=== PATIENT | male | born 1950 | race Caucasian/White ===

== ENCOUNTER → 2018-08-23 | Outpatient (CLI) | payer MEDICARE, BC ==
--- NOTE | 2018-08-23 11:14 | XR ---
EXAMINATION TYPE: XR knee limited LT DATE OF EXAM: 08/23/2018 CLINICAL HISTORY: Left knee pain for many years. TECHNIQUE: Three views of the left knee are obtained. COMPARISON: None. FINDINGS: There is no acute fracture/dislocation evident in left knee. There is mild to moderate tri compartment joint space narrowing and spurring. Posterior vascular calcification distal femur level i s noted. IMPRESSION: As above.
== END | disposition home or self-care (01) ==
LOC: RADXRMAIN 10:27
PROVIDERS: ATTEND Internal Medicine
DX: M25.862 Other specified joint disorders, left knee (principal)

== ENCOUNTER → 2019-01-06 | Outpatient (CLI) | payer MEDICARE ==
[2019-01-06 17:21] LABS: African American GFR (CKD) 100.6 (60.0-200.0); Albumin 3.9 g/dL (3.80-4.90); Albumin/Globulin Ratio 1.86 (1.60-3.17); BUN/Creat Ratio 15.56 Ratio (12.00-20.00); Calcium 9.1 mg/dL (8.7-10.3); Globulin 2.1 g/dL (1.6-3.3); LDL Cholesterol,Calculated 66.4 mg/dL (0.0-131.0); Potassium 4.4 mmol/L (3.5-5.5); Total Bilirubin 0.6 mg/dL (0.2-1.2); VLDL Calculation 15.6 mg/dL (5.00-40.00)
== END | disposition home or self-care (01) ==
LOC: LABWHC1 10:01
PROVIDERS: ATTEND Internal Medicine
DX: Z00.00 Encounter for general adult medical examination without abnormal findings (principal); Z12.5 Encounter for screening for malignant neoplasm of prostate
CPT/HCPCS: 80061; 80053; 36415; G0103

== ENCOUNTER 2019-03-06 18:29 | Inpatient (IN) | payer MEDICARE ==
[2019-03-06] MEDS ORDERED: SODIUM CHLORIDE 0.9% 500 ML 500 ML IV STA (20:24)
[2019-03-06] MEDS ORDERED: ONDANSETRON 4 MG/2 ML VIAL IVP STA (20:27)
[2019-03-06] MEDS ORDERED: METOCLOPRAMIDE 5 MG/ML 2 ML VIAL IVP STA (20:27)
[2019-03-06] MEDS ORDERED: diphenhydrAMINE 50 MG/ML 1 ML VIAL IVP STA (20:27)
[2019-03-06] MEDS ORDERED: MORPHINE SULFATE 4 MG/ML SYRINGE IVP STA (20:28)
--- NOTE | 2019-03-06 20:38 | ED ---
General Adult HPI - General Chief complaint: Abdominal Pain Stated complaint: headache, vomiting Time Seen by Provider: 03/06/19 20:02 Source: patient Mode of arrival: ambulatory Limitations: no limitations - History of Present Illness Initial comments: Patient presents to the ED with his complaining of having a cough, congestion and headache since yesterday, and generalized abdominal pain, nausea and vomiting since this morning. Patient also states that he has had a few bouts of loose stool today. Patient denies trauma or injury, sudden onset of headache, LOC, neck pain or stiffness, fever or chills, focal numbness/weakness/neuro deficit, visual changes, speech problems, chest pain, dyspnea, hemoptysis, palpitations, dizziness, constipation, bloody stool or emesis, melena, dysuria, urinary symptoms, or any other symptoms/complaints. - Related Data Home Medications Medication Instructions Recorded Confirmed Brinzolamide/Brimonidine Tart 1 drop BOTH EYES BID 03/31/15 03/06/19 [Simbrinza 1%-0.2% Eye Drops] Latanoprost Ophth [Xalatan 0.005%] 1 drops BOTH EYES HS 03/31/15 03/06/19 Losartan [Cozaar] 50 mg PO DAILY 03/31/15 03/06/19 Simvastatin [Zocor] 40 mg PO HS 03/31/15 03/06/19 Albuterol Sulfate [Proair Hfa] 2 puff INHALATION RT-Q6H PRN 04/04/15 03/06/19 Cyanocobalamin [Vitamin B-12] 500 mcg PO DAILY 06/08/15 03/06/19 Azithromycin [Zithromax Z-pack] See Taper PO DIRECTED 03/06/19 03/06/19 Meclizine HCl 12.5 mg PO TID PRN 03/06/19 03/06/19 Polymyxin B-Trimeth Sulf Ophth 1 drops BOTH EYES TID 03/06/19 03/06/19 [Polytrim] traMADol HCL [Ultram] 50 mg PO TID PRN 03/06/19 03/06/19 Allergies Allergy/AdvReac Type Severity Reaction Status Date / Time acetaminophen [From Vicodin] Allergy Rash/Hives Verified 03/06/19 20:35 hydrocodone bitartrate Allergy Rash/Hives Verified 03/06/19 20:35 [From Vicodin] Penicillins Allergy Rash/Hives Verified 03/06/19 20:35 cortisone AdvReac Abdominal Verified 03/06/19 20:35 Pain NSAIDS (Non-Steroidal AdvReac Abdominal Verified 03/06/19 20:35 Anti-Inflamma Pain prednisone AdvReac Abdominal Verified 03/06/19 20:35 Pain Review of Systems ROS Statement: Those systems with pertinent positive or pertinent negative responses have been documented in the HPI. ROS Other: All systems not noted in ROS Statement are negative. Past Medical History Past Medical History: Asthma, Eye Disorder, Hyperlipidemia, Hypertension, Osteoarthritis (OA) Additional Past Medical History / Comment(s): BILAT GLAUCOMA AND CATARACTS History of Any Multi-Drug Resistant Organisms: None Reported Past Surgical History: Bariatric Surgery, Cholecystectomy, Hernia Repair, Orthopedic Surgery, Tonsillectomy Additional Past Surgical History / Comment(s): ANAL FISSURE REMOVED. RT ROTATOR CUFF REPAIR. LAP BAND IN AND THEN REMOVED. WARTS REMOVED FROM LOWER EXTREMIES. COLONOSCOPY. SURGERY BILAT EYES FOR CATARACTS AND GLAUCOMA. EGD. RT KNEE SCOPE Past Anesthesia/Blood Transfusion Reactions: No Reported Reaction Additional Past Anesthesia/Blood Transfusion Reaction / Comment(s): Pt has never received blood. Past Psychological History: No Psychological Hx Reported Smoking Status: Never smoker Past Alcohol Use History: None Reported Past Drug Use History: None Reported - Past Family History Mother Family Medical History: Unable to Obtain Additional Family Medical History / Comment(s): FAMILY HX UNKNOWN PT IN F[facility] C[facility] CHILD Father History Unknown: Yes Family Medical History: Unable to Obtain Additional Family Medical History / Comment(s): Pt raised in foster care. General Exam Limitations: no limitations General appearance: alert, in no apparent distress Head exam: Present: atraumatic, normocephalic Eye exam: Present: PERRL, EOMI ENT exam: Present: normal oropharynx, mucous membranes moist Neck exam: Present: full ROM. Absent: tenderness, meningismus Respiratory exam: Present: normal lung sounds bilaterally. Absent: respiratory distress, wheezes, rales, rhonchi Cardiovascular Exam: Present: regular rate, normal rhythm, normal heart sounds, other (Normal radial pulses bilaterally) GI/Abdominal exam: Present: soft, normal bowel sounds, other (Moderate generalized tenderness). Absent: guarding, rebound Back exam: Absent: CVA tenderness (R), CVA tenderness (L) Neurological exam: Present: alert, oriented X3, CN II-XII intact. Absent: motor sensory deficit Psychiatric exam: Present: normal affect, normal mood Skin exam: Present: warm, dry, intact Course Vital Signs 03/06/19 03/06/19 03/06/19 19:06 22:31 23:11 Temperature 98.5 F Pulse Rate 92 87 76 Respiratory 18 18 17 Rate Blood Pressure 222/62 205/101 166/86 O2 Sat by Pulse 98 97 97 Oximetry - Reevaluation(s) Reevaluation #1: 03/06/19 23:58 Case, H&P, test results and ED management thus far were discussed with hospitalist [employer] Radha Lopes. She accepts floor admission on behalf of herself and Dr. Francis. She recommends cardiology consultation. She has no further recommendations at this time. Reevaluation #2: 03/07/19 00:03 Patient denies development of any new symptoms while in the ED. Patient remains alert and breathing comfortably. His abdomen remains soft and without any s urgical signs. Patient's blood pressure has now improved significantly. He continues to deny having any chest pain. Patient and are aware of the patient's test results and they both agree with hospital admission at this time. EKG Findings - EKG Comments: EKG Findings:: Sinus rhythm with first-degree AV block, LVH with strain pattern that is similar in appearance to 06/08/2015 EKG, slightly prolonged QTc interval of 482 ms, VT interval is 210 ms, QRS duration is 114 ms Medical Decision Making - Medical Decision Making Patient reports having a headache, cough and congestion since yesterday, which I suspect are likely secondary to a viral upper respiratory illness. Patient's abdomen is soft and without any surgical signs on exam. Patient's CT abdomen and pelvis is negative for acute abnormality. Patient's troponin is however slightly elevated, although he denies having any chest pain. Patient's blood pressure has improved while in the ED. Pt was given IV labetalol, sublingual nitroglycerin and aspirin while in the ED. Given his elevated troponin and sym ptoms, patient and agree with hospital admission at this time for further evaluation/management. - Lab Data Result diagrams: 03/06/19 20:44 03/06/19 20:44 Lab Results 03/06/19 03/06/19 03/06/19 Range/Units 20:44 20:44 20:44 WBC 15.9 H (3.8-10.6) k/uL RBC 4.51 (4.30-5.90) m/uL Hgb 14.0 (13.0-17.5) gm/dL Hct 41.6 (39.0-53.0) % MCV 92.3 D (80.0-100.0) fL MCH 31.0 (25.0-35.0) pg MCHC 33.6 (31.0-37.0) g/dL RDW 13.7 (11.5-15.5) % Plt Count 231 (150-450) k/uL Neutrophils % 87 % Lymphocytes % 7 % Monocytes % 4 % Eosinophils % 1 % Basophils % 1 % Neutrophils # 13.8 H (1.3-7.7) k/uL Lymphocytes # 1.1 (1.0-4.8) k/uL Monocytes # 0.6 (0-1.0) k/uL Eosinophils # 0.1 (0-0.7) k/uL Basophils # 0.1 (0-0.2) k/uL Sodium 140 (137-145) mmol/L Potassium 4.1 (3.5-5.1) mmol/L Chloride 105 (98-107) mmol/L Carbon Dioxide 25 (22-30) mmol/L Anion Gap 10 mmol/L BUN 10 (9-20) mg/dL Creatinine 0.62 L (0.66-1.25) mg/dL Est GFR (CKD-EPI)AfAm >90 (>60 ml/min/1.73 sqM) Est GFR (CKD-EPI)NonAf >90 (>60 ml/min/1.73 sqM) Glucose 134 H (74-99) mg/dL Calcium 9.7 (8.4-10.2) mg/dL Total Bilirubin 1.0 (0.2-1.3) mg/dL AST 26 (17-59) U/L ALT 15 L (21-72) U/L Alkaline Phosphatase 89 (38-126) U/L Troponin I 0.179 H* (0.000-0.034) ng/mL Total Protein 7.7 (6.3-8.2) g/dL Albumin 4.4 (3.5-5.0) g/dL Lipase 52 (23-300) U/L Urine Color Urine Appearance (Clear) Urine pH (5.0-8.0) Ur Specific [place] (1.001-1.035) Urine Protein (Negative) Urine Glucose (UA) (Negative) Urine Ketones (Negative) Urine Blood (Negative) Urine Nitrite (Negative) Urine Bilirubin (Negative) Urine Urobilinogen (<2.0) mg/dL Ur Leukocyte Esterase (Negative) Urine RBC (0-5) /hpf Urine WBC (0-5) /hpf Ur Squamous Epith Cells (0-4) /hpf Urine Mucus (None) /hpf 03/06/19 Range/Units 22:20 WBC (3.8-10.6) k/uL RBC (4.30-5.90) m/uL Hgb (13.0-17.5) gm/dL Hct (39.0-53.0) % MCV (80.0-100.0) fL MCH (25.0-35.0) pg MCHC (31.0-37.0) g/dL RDW (11.5-15.5) % Plt Count (150-450) k/uL Neutrophils % % Lymphocytes % % Monocytes % % Eosinophils % % Basophils % % Neutrophils # (1.3-7.7) k/uL Lymphocytes # (1.0-4.8) k/uL Monocytes # (0-1.0) k/uL Eosinophils # (0-0.7) k/uL Basophils # (0-0.2) k/uL Sodium (137-145) mmol/L Potassium (3.5-5.1) mmol/L Chloride (98-107) mmol/L Carbon Dioxide (22-30) mmol/L Anion Gap mmol/L BUN (9-20) mg/dL Creatinine (0.66-1.25) mg/dL Est GFR (CKD-EPI)AfAm (>60 ml/min/1.73 sqM) Est GFR (CKD-EPI)NonAf (>60 ml/min/1.73 sqM) Glucose (74-99) mg/dL Calcium (8.4-10.2) mg/dL Total Bilirubin (0.2-1.3) mg/dL AST (17-59) U/L ALT (21-72) U/L Alkaline Phosphatase (38-126) U/L Troponin I (0.000-0.034) ng/mL Total Protein (6.3-8.2) g/dL Albumin (3.5-5.0) g/dL Lipase (23-300) U/L Urine Color Light Yellow Urine Appearance Clear (Clear) Urine pH 7.0 (5.0-8.0) Ur Specific [place] 1.011 (1.001-1.035) Urine Protein 1+ H (Negative) Urine Glucose (UA) Negative (Negative) Urine Ketones Trace H (Negative) Urine Blood Trace H (Negative) Urine Nitrite Negative (Negative) Urine Bilirubin Negative (Negative) Urine Urobilinogen <2.0 (<2.0) mg/dL Ur Leukocyte Esterase Negative (Negative) Urine RBC 6 H (0-5) /hpf Urine WBC <1 (0-5) /hpf Ur Squamous Epith Cells 1 (0-4) /hpf Urine Mucus Rare H (None) /hpf - Radiology Data Radiology results: report reviewed (CT brain shows no acute intracranial pathology. CT abdomen and pelvis shows no acute pathology.), image reviewed (Chest x-ray shows cardiomegaly and pulmonary vascular congestion.) Disposition Clinical Impression: Headache, Upper respiratory infection, Abdominal pain, Vomiting, Elevated troponin Disposition: ADMITTED IP TO THIS [facility] Condition: Stable Time of Disposition: 23:58 Decision Date: 03/06/19 Decision Time: 23:58
[2019-03-06 20:57] LABS: Basophils # (A) 0.1 k/uL (0-0.2); Basophils % (A) 1 %; Eosinophils # (A) 0.1 k/uL (0-0.7); Eosinophils % (A) 1 %; HCT 41.6 % (39.0-53.0); Lymphocytes # (A) 1.1 k/uL (1.0-4.8); Lymphocytes % (A) 7 %; MCHC 33.6 g/dL (31.0-37.0); Monocytes # (A) 0.6 k/uL (0-1.0); Monocytes % (A) 4 %; Neutrophils # (A) 13.8 k/uL (1.3-7.7); Neutrophils % (A) 87 %; Platelet Count 231 k/uL (150-450); RBC 4.51 m/uL (4.30-5.90); RDW 13.7 % (11.5-15.5); WBC 15.9 k/uL (3.8-10.6)
[2019-03-06 21:01] LABS: MCV 92.3 fL (80.0-100.0)
[2019-03-06 21:09] LABS: ALT 15 U/L (21-72); AST 26 U/L (17-59); African American GFR (CKD) >90 (>60 ml/min/1.73 sqM); Albumin 4.4 g/dL (3.5-5.0); Alkaline Phosphatase 89 U/L (38-126); Anion Gap 10 mmol/L; Blood Urea Nitrogen 10 mg/dL (9-20); Calcium 9.7 mg/dL (8.4-10.2); Carbon Dioxide 25 mmol/L (22-30); Chloride 105 mmol/L (98-107); Glucose 134 mg/dL (74-99); Potassium 4.1 mmol/L (3.5-5.1); Sodium 140 mmol/L (137-145); Total Protein 7.7 g/dL (6.3-8.2)
[2019-03-06] MEDS ORDERED: NITROGLYCERIN SL TABS 0.4 MG TAB SUBLINGUAL STA (22:12)
[2019-03-06] MEDS ORDERED: LABETALOL 5 MG/ML VIAL MDV IVP STA (22:13)
--- NOTE | 2019-03-06 22:25 | XR ---
EXAM: XR Chest, 2 Views CLINICAL HISTORY: Cough. TECHNIQUE: Frontal and lateral views of the chest. COMPARISON: None. FINDINGS: Lungs: Mild prominence of central pulmonary vasculature. Pleural space: Lungs are well aerated without pneumothorax No significant pleural effusion is noted. Heart: There is cardiomegaly. Mediastinum: Unremarkable. Bones/joints: Osteopenia. Mild degenerative disc disease of the thoracic spine. IMPRESSION: Cardiomegaly and prominence of central pulmonary vasculature worrisome for incipient congestive heart failure. Clinical correlation is necessary.
--- NOTE | 2019-03-06 22:33 | CT ---
EXAM: CT Head Without Intravenous Contrast CLINICAL HISTORY: Headache. TECHNIQUE: Axial computed tomography images of the head/brain without intravenous contrast. CTDI is 49.1 mGy and DLP is 1072.4 mGy-cm. This CT exam was performed using one or more of the following dose reduction techniques: automated exposure control, adjustment of the mA and/or kV according to patient size, and/or use of iterative reconstruction technique. COMPARISON: None. FINDINGS: Brain: No abnormal extra axial collection No hemorrhage. Midline shift: No midline shift or mass-effect Midline anatomy is normal Ventricles: There is prominence of the ventricular system, cortical sulci, basilar cisterns compatible with age-related atrophy. Bones/joints: Unremarkable. No acute fracture. Soft tissues: Unremarkable. Sinuses: Moderate chronic ethmoid sinusitis. Mastoid air cells: Unremarkable as visualized. No mastoid effusion. Nasal cavity/septum: A 0.8 cm of nasal polyp arising from the right inferior turbinate. IMPRESSION: Age related atrophy. No acute intracranial pathology. If there is concern for etiology such as early acute lacunar infarct, magnetic resonance imaging of the brain with diffusion-weighted sequences should be performed. Nasal polyps. Chronic ethmoid sinusitis.
--- NOTE | 2019-03-06 22:53 | CT ---
EXAM: CT Abdomen and Pelvis With Intravenous Contrast CLINICAL HISTORY: Abdominal pain. TECHNIQUE: Axial computed tomography images of the abdomen and pelvis with intravenous contrast. CTDI is 49.1Was mGy and DLP is 1072.4 mGy-cm. This CT exam was performed using one or more of the following dose reduction techniques: automated exposure control, adjustment of the mA and/or kV according to patient size, and/or use of iterative reconstruction technique. COMPARISON: 06/08/2015. FINDINGS: Lung bases: Minimal subsegmental atelectasis is noted at the lung bases. Mediastinum: Small hiatal hernia. ABDOMEN: Liver: The uppermost aspect of the liver is excluded from view. Moreover, evaluation is somewhat limited due to motion artifact. Gallbladder and bile ducts: The patient is status post cholecystectomy. 3.2 cm simple cyst in the upper to mid pole region of the left kidney is noted, based on Hounsfield valuation. No ductal dilation. Pancreas: Unremarkable. No mass. No ductal dilation. Spleen: Unremarkable. No splenomegaly. Adrenals: Unremarkable. No mass. Kidneys and ureters: An additional 0.3 cm oval simple cyst in the midpole region of the left kidney is noted. Bilateral peripelvic renal cysts are noted. A 2.2 cm simple right renal cyst is noted medially. No hydronephrosis. Stomach and bowel: A few scattered colonic diverticula are noted without diverticulitis. No obstruction. PELVIS: Appendix: The appendix is best visualized on series 201 image 58 and is unremarkable Bladder: Unremarkable. No mass. Reproductive: Unremarkable as visualized. ABDOMEN and PELVIS: Intraperitoneal space: No free fluid within the pelvis. No free air. Bones/joints: Moderate to severe degenerative disc disease of the spinal column is noted. Mild to moderate osteoarthritic changes about the sacroiliac joints is noted. Arthroscopic disease of the abdominal aorta is noted without change in caliber No acute fracture. No dislocation. Soft tissues: Unremarkable. Vasculature: See above. Lymph nodes: No retroperitoneal lymphadenopathy. IMPRESSION: Limited evaluation as discussed above. Small hiatal hernia. Simple renal cysts. The appendix is unremarkable. Mild diverticulosis. Nonspecific bowel gas pattern. Status post cholecystectomy.
[2019-03-06 23:29] LABS: Appearance,Urine Clear (Clear); Bilirubin,Urine Negative (Negative); Blood,Urine Trace (Negative); Color,Urine Light Yellow; Glucose,Urine (UA) Negative (Negative); Ketones,Urine Trace (Negative); Leukocyte Esterase,Urine Negative (Negative); Mucus,Urine Rare /hpf; Nitrite,Urine Negative (Negative); Protein,Urine 1+ (Negative); RBC,Urine 6 /hpf (0-5); Specific Gravity,Urine 1.011 (1.001-1.035); Squamous Epithelial Cell,Urine 1 /hpf (0-4); Urobilinogen,Urine <2.0 mg/dL (<2.0)
[2019-03-06] MEDS ORDERED: ASPIRIN 81 MG PO STA (23:52)
[2019-03-07 01:57] VITALS: BMI 51.0
[2019-03-07] MEDS: ONDANSETRON 4 MG/2 ML VIAL IVP PRN ×2 (02:39→09:34)
[2019-03-07] MEDS: LOSARTAN 50 MG TAB PO SCH ×2 (02:39→09:34)
[2019-03-07] MEDS: MORPHINE SULFATE 4 MG/ML SYRINGE IVP PRN ×2 (02:39→09:34)
[2019-03-07] MEDS ORDERED: ALBUTEROL NEBULIZED 2.5 MG/3 ML INHALATION PRN (10:13)
[2019-03-07] MEDS ORDERED: MECLIZINE 12.5 MG TAB PO PRN (10:13)
--- NOTE | 2019-03-07 10:52 | P.HPIM ---
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 Patient appears to viral gastritis patient denied any chest pain EKG did not show any significant acute ST-T wave changes but patient does have minimal did have minimally elevated troponins is also comparing of headache denied any photophobia. Patient does have sinusitis.denied any significant body aches. Influenza testing is negative. Review of Systems REVIEW OF SYSTEMS: CONSTITUTIONAL:as mentioned above HEENT: No recent visual problems or hearing problems. Denied any sore throat. CARDIOVASCULAR: No chest pain, orthopnea, PND, no palpitations, no syncope. PULMONARY: No shortness of breath, no cough, no hemoptysis. GASTROINTESTINAL: as mentioned in the HPI NEUROLOGICAL: No headaches, no weakness, no numbness. HEMATOLOGICAL: Denies any bleeding or petechiae. GENITOURINARY: Denies any burning micturition, frequency, or urgency. MUSCULOSKELETAL/RHEUMATOLOGICAL: Denies any joint pain, swelling, or any muscle pain. ENDOCRINE: Denies any polyuria or polydipsia. The rest of the 14-point review of systems is negative. Past Medical History Past Medical History: Asthma, Eye Disorder, Hyperlipidemia, Hypertension, Osteoarthritis (OA) Additional Past Medical History / Comment(s): BILAT GLAUCOMA AND CATARACTS History of Any Multi-Drug Resistant Organisms: None Reported Past Surgical History: Bariatric Surgery, Cholecystectomy, Hernia Repair, Orthopedic Surgery, Tonsillectomy Additional Past Surgical History / Comment(s): ANAL FISSURE REMOVED. RT ROTATOR CUFF REPAIR. LAP BAND IN AND THEN REMOVED. WARTS REMOVED FROM LOWER EXTREMIES. COLONOSCOPY. SURGERY BILAT EYES FOR CATARACTS AND GLAUCOMA. EGD. RT KNEE SCOPE Past Anesthesia/Blood Transfusion Reactions: No Reported Reaction Additional Past Anesthesia/Blood Transfusion Reaction / Comment(s): Pt has never received blood. Past Psychological History: No Psychological Hx Reported Additional Psychological History / Comment(s): Pt resides with his spouse. He uses a cane if needed. He drives. He is independent. Smoking Status: Never smoker Past Alcohol Use History: None Reported Past Drug Use History: None Reported - Past Family History Mother Family Medical History: Unable to Obtain Additional Family Medical History / Comment(s): FAMILY HX UNKNOWN PT IN [facility] CHILD Father History Unknown: Yes Family Medical History: Unable to Obtain Additional Family Medical History / Comment(s): Pt raised in foster care. Medications and Allergies Home Medications Medication Instructions Recorded Confirmed Type Brinzolamide/Brimonidine Tart 1 drop BOTH EYES BID 03/31/15 03/06/19 History [Simbrinza 1%-0.2% Eye Drops] Latanoprost Ophth [Xalatan 0.005%] 1 drops BOTH EYES HS 03/31/15 03/06/19 History Losartan [Cozaar] 50 mg PO DAILY 03/31/15 03/06/19 History Simvastatin [Zocor] 40 mg PO HS 03/31/15 03/06/19 History Albuterol Sulfate [Proair Hfa] 2 puff INHALATION RT-Q6H PRN 04/04/15 03/06/19 History Cyanocobalamin [Vitamin B-12] 500 mcg PO DAILY 06/08/15 03/06/19 History Azithromycin [Zithromax Z-pack] See Taper PO DIRECTED 03/06/19 03/06/19 History Meclizine HCl 12.5 mg PO TID PRN 03/06/19 03/06/19 History Polymyxin B-Trimeth Sulf Ophth 1 drops BOTH EYES TID 03/06/19 03/06/19 History [Polytrim] traMADol HCL [Ultram] 50 mg PO TID PRN 03/06/19 03/06/19 History Allergies Allergy/AdvReac Type Severity Reaction Status Date / Time acetaminophen [From Vicodin] Allergy Rash/Hives Verified 03/06/19 20:35 hydrocodone bitartrate Allergy Rash/Hives Verified 03/06/19 20:35 [From Vicodin] Penicillins Allergy Rash/Hives Verified 03/06/19 20:35 cortisone AdvReac Abdominal Verified 03/06/19 20:35 Pain NSAIDS (Non-Steroidal AdvReac Abdominal Verified 03/06/19 20:35 Anti-Inflamma Pain prednisone AdvReac Abdominal Verified 03/06/19 20:35 Pain Physical Exam Vitals: Vital Signs Temp Pulse Pulse Resp BP BP Pulse Ox 03/07/19 08:20 98.8 F 60 16 127/61 95 09/14/19 04:00 61 18 108/50 95 03/07/19 03:31 63 18 03/07/19 00:59 98.5 F 60 18 187/73 97 03/07/19 00:43 70 18 168/82 98 03/06/19 23:11 76 17 166/86 97 03/06/19 22:31 87 18 205/101 97 03/06/19 19:06 98.5 F 92 18 222/62 98 Intake and Output 03/06/19 03/07/19 03/07/19 22:59 06:59 14:59 Other: Voiding Method Toilet # Voids 1 Weight 141.067 kg 139.3 kg PHYSICAL EXAMINATION: GENERAL: The patient is alert and oriented x3, not in any acute distress. Well developed, well nourished. HEENT: Pupils are round and equally reacting to light. 10 does have conjunctivitis appears to be viral clinically sinusitis, upper respiratory illness. CARDIOVASCULAR: S1 and S2 present. No murmurs, rubs, or gallops. PULMONARY: Chest is clear to auscultation, no wheezing or crackles. ABDOMEN: Soft, nontender, nondistended, normoactive bowel sounds. No palpable organomegaly. MUSCULOSKELETAL: No joint swelling or deformity. EXTREMITIES: No cyanosis, clubbing, or pedal edema. NEUROLOGICAL: Gross neurological examination did not reveal any focal deficits. SKIN: No rashes. Results CBC & Chem 7: 03/06/19 20:44 03/06/19 20:44 Labs: Abnormal Lab Results - Last 24 Hours (Table) 03/06/19 03/06/19 03/06/19 Range/Units 20:44 20:44 20:44 WBC 15.9 H (3.8-10.6) k/uL Neutrophils # 13.8 H (1.3-7.7) k/uL Creatinine 0.62 L (0.66-1.25) mg/dL Glucose 134 H (74-99) mg/dL ALT 15 L (21-72) U/L Troponin I 0.179 H* (0.000-0.034) ng/mL Urine Protein (Negative) Urine Ketones (Negative) Urine Blood (Negative) Urine RBC (0-5) /hpf Urine Mucus (None) /hpf 03/06/19 03/07/19 Range/Units 22:20 06:13 WBC (3.8-10.6) k/uL Neutrophils # (1.3-7.7) k/uL Creatinine (0.66-1.25) mg/dL Glucose (74-99) mg/dL ALT (21-72) U/L Troponin I 0.283 H* (0.000-0.034) ng/mL Urine Protein 1+ H (Negative) Urine Ketones Trace H (Negative) Urine Blood Trace H (Negative) Urine RBC 6 H (0-5) /hpf Urine Mucus Rare H (None) /hpf Thrombosis Risk Factor Assmnt - Choose All That Apply Any of the Below Risk Factors Present?: Yes Each Factor Represents 1 point: Obesity (BMI >25) Other Risk Factors: Yes Each Risk Factor Represents 2 Points: Age 61-74 years Other congenital or acquired thrombophilia - If yes, enter type in comment: No Thrombosis Risk Factor Assessment Total Risk Factor Score: 3 Thrombosis Risk Factor Assessment Level: Moderate Risk Assessment and Plan Plan: abdomen epigastric abdominal discomfort probably secondary to viral gastroenteritis patient will be continued on Protonix IV fluids will be continued. -Viral upper respiratory, viral GI and viral conjunctivitis supportive care patient will be continued on azithromycin that was started by his woodworking machine setter, patient will be started on anti-histamines for possible ALLERGIC etiology -Mildly elevated troponin 2 sets of troponins were elevated cardiology was consulted appears to be noncardiac elevation appears to be secondary to widely less echo cardiac exam will be obtained looking for wall motion abnormalities or any decrease in ejection fraction because of the viral illness. -Hyperlipidemia next and-hypertension -asthma without any acute exacerbation
--- NOTE | 2019-03-07 12:46 | P.CRDCN ---
History of Present Illness History of present illness: This is a pleasant 69-year-old male past medical history significant for hypertension and dyslipidemia. He recently established in the office with Dr. Colón for preoperative evaluation prior to left knee surgery. He underwent cardiac catheterization in 2015 revealing mild nonobstructive irregularities of the circumflex and RCA. We have been asked to see him in consultation secondary to elevated troponin. He presented to the hospital after being evaluated at the ophthalmology office with symptoms of eye drainage, headache and he then developed some abdominal discomfort. He also describes cough and congestion. He describes multiple episodes of loose stool. He underwent CT imaging of his brain, abdomen and pelvis. No acute process. No abdominal aortic abnormalities noted. Chronic ethmoid sinusitis noted. Blood pressure on arrival to the emergency department was 222/62. He is seen and examined sitting up in bed in no acute distress. He denies symptoms of chest discomfort, shortness of breath, palpitations or dizziness. He continues to feel a very vague lower abdominal discomfort associated with diarrhea. EKG on admission reveals sinus mechanism heart rate of 93, first-degree AV block with no acute ST or T wave abnormalities noted. Chest x-ray reveals cardiomegaly, prominent central pulmonary vasculature. Laboratory data reviewed, WBC 15.9, hemoglobin 14, platelets 231, sodium 140, potassium 4.1, creatinine 0.62, troponin 0.179 and 0.283, proBNP 590. Current daily cardiac medications include losartan 50 mg daily, simvastatin 40 mg daily. Most recent echocardiogram obtained in 2015 reveals preserved LV systolic function with ejection fraction 60-65%. At the time of my exam: CONSTITUTIONAL: Denies fever. Denies chills. EYES: Denies blurred vision. Denies vision changes. Denies eye pain. EARS, NOSE, MOUTH & THROAT: Denies headache. Denies sore throat. Denies ear pain. CARDIOVASCULAR: Denies chest pain. Denies shortness of breath. Denies orthopnea. Denies PND. Denies palpitations. RESPIRATORY: Denies cough. GASTROINTESTINAL: Denies abdominal pain. Denies diarrhea. Denies constipation. Denies nausea. Denies vomiting. MUSCULOSKELETAL: Denies myalgias. INTEGUMENTARY: Denies pruitis. Denies rash. NEUROLOGIC: Denies numbness. Denies tingling. Denies weakness. PSYCHIATRIC: Denies anxiety. Denies depression. ENDOCRINE: Denies fatigue. Denies weight change. Denies polydipsia. Denies polyurina. GENITOURINARY: Denies burning, hematuria or urgency with micturation. HEMATOLOGIC: Denies history of anemia. Denies bleeding. Blood pressure 126/58 heart rate 60 afebrile maintaining oxygen saturation on room air GENERAL: This is a 69-year-old male in no apparent distress at the time of my examination. HEENT: Head is atraumatic, normocephalic. Pupils are equal, round. Sclerae anicteric. Conjunctivae are clear. Mucous membranes of the mouth are moist. Neck is supple. There is no jugular venous distention. No carotid bruit is heard. LUNGS: Clear to auscultation no wheezes, rales or rhonchi. No chest wall tenderness is noted on palpation or with deep breathing. HEART: Regular rate and rhythm without murmurs, rubs or gallops. S1 and S2 heard. ABDOMEN: Soft, nontender. Bowel sounds are heard. No organomegaly noted. EXTREMITIES: No evidence of peripheral edema and no calf tenderness noted. VASCULAR: Radial and dorsalis pedis pulses palpated, no evidence of clubbing. NEUROLOGIC: Patient is awake, alert and oriented x3. ASSESSMENT Troponin elevation of unclear significance, no evidence of ischemia on EKG and no verbalized symptoms of angina. Possibly related to underlying viral illness. Leukocytosis Hypertension Dyslipidemia PLAN Obtain 2-D echocardiogram and Doppler study to assess cardiac structure and function. Check d-dimer. Ongoing medical management of underlying viral illness. Thank you kindly for this consultation. Nurse Practitioner note has been reviewed, I agree with a documented findings and plan of care. Patient was seen and examined. Past Medical History Past Medical History: Asthma, Eye Disorder, Hyperlipidemia, Hypertension, Osteoarthritis (OA) Additional Past Medical History / Comment(s): BILAT GLAUCOMA AND CATARACTS History of Any Multi-Drug Resistant Organisms: None Reported Past Surgical History: Bariatric Surgery, Cholecystectomy, Hernia Repair, Orthopedic Surgery, Tonsillectomy Additional Past Surgical History / Comment(s): ANAL FISSURE REMOVED. RT ROTATOR CUFF REPAIR. LAP BAND IN AND THEN REMOVED. WARTS REMOVED FROM LOWER EXTRE MIES. COLONOSCOPY. SURGERY BILAT EYES FOR CATARACTS AND GLAUCOMA. EGD. RT KNEE SCOPE Past Anesthesia/Blood Transfusion Reactions: No Reported Reaction Additional Past Anesthesia/Blood Transfusion Reaction / Comment(s): Pt has never received blood. Past Psychological History: No Psychological Hx Reported Additional Psychological History / Comment(s): Pt resides with his spouse. He uses a cane if needed. He drives. He is independent. Smoking Status: Never smoker Past Alcohol Use History: None Reported Past Drug Use History: None Reported - Past Family History Mother Family Medical History: Unable to Obtain Additional Family Medical History / Comment(s): FAMILY HX UNKNOWN PT IN FOSTER CARE CHILD Father History Unknown: Yes Family Medical History: Unable to Obtain Additional Family Medical History / Comment(s): Pt raised in foster care. Medications and Allergies Home Medications Medication Instructions Recorded Confirmed Type Brinzolamide/Brimonidine Tart 1 drop BOTH EYES BID 03/31/15 03/06/19 History [Simbrinza 1%-0.2% Eye Drops] Latanoprost Ophth [Xalatan 0.005%] 1 drops BOTH EYES HS 03/31/15 03/06/19 History Losartan [Cozaar] 50 mg PO DAILY 03/31/15 03/06/19 History Simvastatin [Zocor] 40 mg PO HS 03/31/15 03/06/19 History Albuterol Sulfate [Proair Hfa] 2 puff INHALATION RT-Q6H PRN 04/04/15 03/06/19 History Cyanocobalamin [Vitamin B-12] 500 mcg PO DAILY 06/08/15 03/06/19 History Azithromycin [Zithromax Z-pack] See Taper PO DIRECTED 03/06/19 03/06/19 History Meclizine HCl 12.5 mg PO TID PRN 03/06/19 03/06/19 History Polymyxin B-Trimeth Sulf Ophth 1 drops BOTH EYES TID 03/06/19 03/06/19 History [Polytrim] traMADol HCL [Ultram] 50 mg PO TID PRN 03/06/19 03/06/19 History Allergies Allergy/AdvReac Type Severity Reaction Status Date / Time acetaminophen [From Vicodin] Allergy Rash/Hives Verified 03/06/19 20:35 hydrocodone bitartrate Allergy Rash/Hives Verified 03/06/19 20:35 [From Vicodin] Penicillins Allergy Rash/Hives Verified 03/06/19 20:35 cortisone AdvReac Abdominal Verified 03/06/19 20:35 Pain NSAIDS (Non-Steroidal AdvReac Abdominal Verified 03/06/19 20:35 Anti-Inflamma Pain prednisone AdvReac Abdominal Verified 03/06/19 20:35 Pain Physical Exam Vitals: Vital Signs Temp Pulse Pulse Resp BP BP Pulse Ox 03/07/19 04:00 61 18 108/50 95 03/07/19 03:31 63 18 03/07/19 00:59 98.5 F 60 18 187/73 97 03/07/19 00:43 70 18 168/82 98 03/06/19 23:11 76 17 166/86 97 03/06/19 22:31 87 18 205/101 97 03/06/19 19:06 98.5 F 92 18 222/62 98 Intake and Output 03/06/19 03/07/19 03/07/19 22:59 06:59 14:59 Other: Voiding Method Toilet # Voids 1 Weight 141.067 kg 139.3 kg Results 03/06/19 20:44 03/06/19 20:44 Cardiac Enzymes 03/06/19 03/06/19 Range/Units 20:44 20:44 AST 26 (17-59) U/L Troponin I 0.179 H* (0.000-0.034) ng/mL CBC 03/06/19 Range/Units 20:44 WBC 15.9 H (3.8-10.6) k/uL RBC 4.51 (4.30-5.90) m/uL Hgb 14.0 (13.0-17.5) gm/dL Hct 41.6 (39.0-53.0) % Plt Count 231 (150-450) k/uL Comprehensive Metabolic Panel 03/06/19 Range/Units 20:44 Sodium 140 (137-145) mmol/L Potassium 4.1 (3.5-5.1) mmol/L Chloride 105 (98-107) mmol/L Carbon Dioxide 25 (22-30) mmol/L BUN 10 (9-20) mg/dL Creatinine 0.62 L (0.66-1.25) mg/dL Glucose 134 H (74-99) mg/dL Calcium 9.7 (8.4-10.2) mg/dL AST 26 (17-59) U/L ALT 15 L (21-72) U/L Alkaline Phosphatase 89 (38-126) U/L Total Protein 7.7 (6.3-8.2) g/dL Albumin 4.4 (3.5-5.0) g/dL Current Medications Generic Name Dose Route Start Last Admin Trade Name Freq PRN Reason Stop Dose Admin Losartan Potassium 50 mg 03/07/19 02:28 03/07/19 02:39 Cozaar PO 50 mg DAILY VANESSA Administration Morphine Sulfate 4 mg 03/07/19 02:28 03/07/19 02:39 Morphine Sulfate (Inj) IVP 4 mg Q6HR PRN Administration Pain Ondansetron HCl 4 mg 03/07/19 02:28 03/07/19 02:39 Zofran IVP 4 mg Q6HR PRN Administration Nausea And Vomiting Intake and Output 03/06/19 03/07/19 03/07/19 22:59 06:59 14:59 Other: Voiding Method Toilet # Voids 1 Weight 141.067 kg 139.3 kg 03/06/19 20:44 03/06/19 20:44
[2019-03-07] MEDS: LORATADINE 10 MG TAB PO SCH (12:52)
[2019-03-07] MEDS: PANTOPRAZOLE 40 MG/10 ML VIAL IVP SCH (12:52)
[2019-03-07] MEDS: AZITHROMYCIN 250 MG TAB PO SCH (12:52)
[2019-03-07] MEDS: traMADol 50 MG TAB PO PRN ×2 (12:54→18:55)
--- NOTE | 2019-03-07 15:44 | ECHOF ---
Referral Reason:elev trop, abd pain MEASUREMENTS -------- HEIGHT: 165.1 cm WEIGHT: 139.3 kg BP: 108/50 RVIDd: 3.3 cm (< 3.3) IVSd: 1.7 cm (0.6 - 1.1) LVIDd: 4.9 cm (3.9 - 5.3) LVPWd: 1.3 cm (0.6 - 1.1) IVSs: 2.3 cm LVIDs: 3.3 cm LVPWs: 2.0 cm LA Diam: 4.9 cm (2.7 - 3.8) Ao Diam: 4.3 cm (2.0 - 3.7) MV EXCURSION: 18.351 mm (> 18.000) MV EF SLOPE: 98 mm/s (70 - 150) MV E Joao: 0.79 m/s MV DecT: 469 ms MV A Joao: 0.90 m/s MV E/A Ratio: 0.88 RAP: 5.00 mmHg RVSP: 13.79 mmHg FINDINGS -------- Sinus rhythm. This was a technically adequate study. Grossly normal LV size and systolic function. Unable to comment on regional wall motion. There is b orderline concentric left ventricular hypertrophy. There is normal global left ventricular contract ility. The right ventricle is normal in size and function. The left atrium is mildly dilated. The right atrium is normal in size. 5.0mg of Lumason was utilized for enhancement of images Interatrial and interventricular septum intact. The aortic valve is trileaflet, and appears structurally normal. No aortic stenosis or regurgitation. The mitral valve is normal. There is trace mitral regurgitation. The tricuspid valve appears structurally normal. Mild tricuspid regurgitation present. There is n o evidence of pulmonary hypertension. The right ventricular systolic pressure, as measured by Doppl er, is 13.79mmHg. The aortic root size is normal. The pericardium is normal. CONCLUSIONS -------- 1. Sinus rhythm. 2. This was a technically adequate study. 3. Grossly normal LV size and systolic function. Unable to comment on regional wall motion. 4. There is borderline concentric left ventricular hypertrophy. 5. There is normal global left ventricular contractility. 6. The right ventricle is normal in size and function. 7. The left atrium is mildly dilated. 8. The right atrium is normal in size. 9. 5.0mg of Lumason was utilized for enhancement of images 10. Interatrial and interventricular septum intact. 11. The aortic valve is trileaflet, and appears structurally normal. No aortic stenosis or regurgitat ion. 12. The mitral valve is normal. 13. There is trace mitral regurgitation. 14. The tricuspid valve appears structurally normal. 15. Mild tricuspid regurgitation present. 16. There is no evidence of pulmonary hypertension. 17. The right ventricular systolic pressure, as measured by Doppler, is 13.79mmHg. 18. The aortic root size is normal. 19. The pericardium is normal. INTAKE RN: Luis F Gomez RDCS
[2019-03-07] MEDS: POLYMYXIN B-TRIMETHOPRIM SULF (10,000-1) OPHTH DROPS 10 ML BTL BOTH EYES SCH ×2 (18:28→19:57)
[2019-03-07] MEDS: BRIMONIDINE TARTRATE 0.2% DROPS 5 ML BTL BOTH EYES SCH (19:56)
[2019-03-07] MEDS: DORZOLAMIDE HCL 2% DROPS 10 ML BTL BOTH EYES SCH (19:56)
[2019-03-07] MEDS ORDERED: ATORVASTATIN 20 MG TAB PO SCH (21:00)
[2019-03-07] MEDS ORDERED: LATANOPROST 0.005% OPHTH DROPS 2.5 ML BTL BOTH EYES SCH (21:00)
[2019-03-08 06:22] LABS: Basophils # (A) 0.1 k/uL (0-0.2); Basophils % (A) 1 %; Eosinophils # (A) 0.7 k/uL (0-0.7); Eosinophils % (A) 6 %; HCT 35.9 % (39.0-53.0); HGB 12.1 gm/dL (13.0-17.5); Lymphocytes # (A) 3.1 k/uL (1.0-4.8); Lymphocytes % (A) 27 %; MCHC 33.5 g/dL (31.0-37.0); MCV 95.5 fL (80.0-100.0); Monocytes # (A) 0.6 k/uL (0-1.0); Monocytes % (A) 5 %; Neutrophils # (A) 6.9 k/uL (1.3-7.7); Neutrophils % (A) 59 %; Platelet Count 231 k/uL (150-450); RBC 3.77 m/uL (4.30-5.90); RDW 15.2 % (11.5-15.5); WBC 11.6 k/uL (3.8-10.6)
[2019-03-08 06:33] LABS: Albumin 3.6 g/dL (3.5-5.0); Potassium 3.9 mmol/L (3.5-5.1); Total Protein 6.3 g/dL (6.3-8.2)
[2019-03-08] MEDS: PANTOPRAZOLE 40 MG/10 ML VIAL IVP SCH (08:33)
[2019-03-08] MEDS: DORZOLAMIDE HCL 2% DROPS 10 ML BTL BOTH EYES SCH (08:33)
[2019-03-08] MEDS: LOSARTAN 50 MG TAB PO SCH (08:33)
[2019-03-08] MEDS: LORATADINE 10 MG TAB PO SCH (08:33)
[2019-03-08] MEDS: AZITHROMYCIN 250 MG TAB PO SCH (08:33)
[2019-03-08] MEDS: BRIMONIDINE TARTRATE 0.2% DROPS 5 ML BTL BOTH EYES SCH (08:34)
[2019-03-08 08:43] VITALS: BP 135/61; PULSE 73; RESP 18; TEMP 98.4
[2019-03-08] MEDS ORDERED: CYANOCOBALAMIN 500 MCG TAB PO SCH (09:00)
--- NOTE | 2019-03-08 09:17 | P.DS ---
Providers Date of admission: 03/06/19 23:58 Attending physician: Jean Francis Consults: 03/07/19 00:05 Consult Physician Urgent Consulting Provider: Deshaun Rosenthal Consult Reason/Comments: elevated troponin Do you want consulting provider notified?: Yes Primary care physician: Zane Dodd [facility] Course: patient is a pleasant 69-year-old gentleman came in with complaints of cough congestion and dry cough with the watery eyes patient has seen an beater tender diagnosed with bacterial conjunctivitis was on azithromycin for that came in with epigastric abdominal burning sensation along with nausea and few bouts of loose stool which resolved at this time. Patient appears to viral gastritis patient denied any chest pain EKG did not show any significant acute ST-T wave changes but patient does have minimal did have minimally elevated troponins is also comparing of headache denied any photophobia. Patient does have sinusitis.denied any significant body aches. Influenza testing is negative. 03/08/2019 Patient's symptoms significantly improved with antihistamines patient will be discharged today. Patient had an echocardiogram which did not show any significant abnormality troponin elevation is secondary to generalized viral illness including upper respiratory upper GI last. Patient will be discharged on antihistamine as well as prilosec PHYSICAL EXAMINATION: GENERAL: The patient is alert and oriented x3, not in any acute distress. Well developed, well nourished. HEENT: Pupils are round and equally reacting to light. 10 does have conjunctivitis appears to be viral clinically sinusitis, upper respiratory illness. CARDIOVASCULAR: S1 and S2 present. No murmurs, rubs, or gallops. PULMONARY: Chest is clear to auscultation, no wheezing or crackles. ABDOMEN: Soft, nontender, nondistended, normoactive bowel sounds. No palpable organomegaly. MUSCULOSKELETAL: No joint swelling or deformity. EXTREMITIES: No cyanosis, clubbing, or pedal edema. NEUROLOGICAL: Gross neurological examination did not reveal any focal deficits. SKIN: No rashes. Assessment and Plan Plan: abdomen epigastric abdominal discomfort probably secondary to viral gastroenteritis patient -Viral upper respiratory, viral GI and viral conjunctivitis supportive care -Mildly elevated troponin 2 sets of troponins were elevated cardiology was consulted appears to be noncardiac elevation appears to be secondary to widely less -Hyperlipidemia next and-hypertension -asthma without any acute exacerbation Patient Condition at Discharge: Stable Plan - Discharge Summary Discharge Rx Participant: Yes New Discharge Prescriptions: New Loratadine [Claritin] 10 mg PO DAILY #10 tab Omeprazole [PriLOSEC] 40 mg PO AC-BRKFST #14 capsule.dr Continue Losartan [Cozaar] 50 mg PO DAILY Latanoprost Ophth [Xalatan 0.005%] 1 drops BOTH EYES HS Brinzolamide/Brimonidine Tart [Simbrinza 1%-0.2% Eye Drops] 1 drop BOTH EYES BID Simvastatin [Zocor] 40 mg PO HS Albuterol Sulfate [Proair Hfa] 2 puff INHALATION RT-Q6H PRN PRN Reason: Shortness Of Breath Cyanocobalamin [Vitamin B-12] 500 mcg PO DAILY traMADol HCL [Ultram] 50 mg PO TID PRN PRN Reason: Pain Meclizine HCl 12.5 mg PO TID PRN PRN Reason: Vertigo Polymyxin B-Trimeth Sulf Ophth [Polytrim Opthalmic] 1 drops BOTH EYES TID Azithromycin [Zithromax Z-pack] See Taper PO DIRECTED Discharge Medication List Brinzolamide/Brimonidine Tart [Simbrinza 1%-0.2% Eye Drops] 1 drop BOTH EYES BID 03/31/15 [History] Latanoprost Ophth [Xalatan 0.005%] 1 drops BOTH EYES HS 03/31/15 [History] Losartan [Cozaar] 50 mg PO DAILY 03/31/15 [History] Simvastatin [Zocor] 40 mg PO HS 03/31/15 [History] Albuterol Sulfate [Proair Hfa] 2 puff INHALATION RT-Q6H PRN 04/04/15 [History] Cyanocobalamin [Vitamin B-12] 500 mcg PO DAILY 06/08/15 [History] Azithromycin [Zithromax Z-pack] See Taper PO DIRECTED 03/06/19 [History] Meclizine HCl 12.5 mg PO TID PRN 03/06/19 [History] Polymyxin B-Trimeth Sulf Ophth [Polytrim Opthalmic] 1 drops BOTH EYES TID 03/06/19 [History] traMADol HCL [Ultram] 50 mg PO TID PRN 03/06/19 [History] Loratadine [Claritin] 10 mg PO DAILY #10 tab 03/08/19 [Rx] Omeprazole [PriLOSEC] 40 mg PO ANAKFSKade #14 capsule. 03/08/19 [Rx] Patient Instructions/Handouts: Gastritis (DC) Discharge Disposition: HOME SELF-CARE
[2019-03-08] MEDS: POLYMYXIN B-TRIMETHOPRIM SULF (10,000-1) OPHTH DROPS 10 ML BTL BOTH EYES SCH (09:53)
--- NOTE | 2019-03-08 11:18 | P.PN ---
Subjective This is a pleasant 69-year-old male past medical history significant for hypertension and dyslipidemia. He recently established in the office with Dr. Colón for preoperative evaluation prior to left knee surgery. He underwent cardiac catheterization in 2014 revealing mild nonobstructive irregularities of the circumflex and RCA. Patient was seen and examined sitting up in the chair in no acute distress. He continues to complain of intermittent episodes of diarrhea. He denies chest pain, shortness of breath, dizziness or palpitations. Troponin elevation is of unclear clinical significance with no evidence to suggest ischemia. Laboratory data reviewed, WBC 11.6, hemoglobin 12.1, platelets 231, d-dimer 0.32, sodium 140, potassium 3.9, creatinine 1.04. Echocardiogram reveals preserved LV systolic function with no evidence of LV hypokinesia or dysfunction. Blood pressure 135/61 heart rate 73 afebrile maintaining oxygen saturation on room air. GENERAL: This is a 69-year-old male in no apparent distress at the time of my examination. HEENT: Head is atraumatic, normocephalic. Pupils are equal, round. Sclerae anicteric. Conjunctivae are clear. Mucous membranes of the mouth are moist. Neck is supple. There is no jugular venous distention. No carotid bruit is heard. LUNGS: Clear to auscultation no wheezes, rales or rhonchi. No chest wall tenderness is noted on palpation or with deep breathing. HEART: Regular rate and rhythm without murmurs, rubs or gallops. S1 and S2 heard. EXTREMITIES: No evidence of peripheral edema and no calf tenderness noted. ASSESSMENT Troponin elevation of unclear clinical significance, no evidence of ischemia on EKG and no verbalized symptoms of angina. Possibly related to underlying viral illness. Leukocytosis Hypertension Dyslipidemia PLAN Patient is seen and examined hemodynamically stable with no symptoms of angina. Troponin elevation is of unclear clinical significance. Possibly related to underlying viral illness. The patient is scheduled to undergo a stress test tomorrow in the office with Dr. Colón. Stable for discharge to follow-up tomorrow for his already previously scheduled exam. Nurse Practitioner note has been reviewed, I agree with a documented findings and plan of care. Patient was seen and examined. Objective - Vital Signs Vital signs: Vital Signs Temp 98.4 F 03/08/19 08:20 Pulse 73 03/08/19 08:20 Resp 18 03/08/19 08:20 BP 135/61 03/08/19 08:20 Pulse Ox 95 03/08/19 08:20 Intake & Output 03/07/19 03/08/19 03/08/19 18:59 06:59 18:59 Intake Total 600 240 Balance 600 240 Weight 139.1 kg Intake: Oral 600 240 Other: Voiding Method Toilet Toilet Toilet # Voids 1 4 1 # Bowel Movements 1 - Labs CBC & Chem 7: 03/08/19 05:52 03/08/19 05:52 Labs: Abnormal Lab Results - Last 24 Hours (Table) 03/07/19 03/08/19 03/08/19 Range/Units 11:54 05:52 05:52 WBC 11.6 H (3.8-10.6) k/uL RBC 3.77 L (4.30-5.90) m/uL Hgb 12.1 L (13.0-17.5) gm/dL Hct 35.9 L (39.0-53.0) % Carbon Dioxide 32 H (22-30) mmol/L Glucose 109 H (74-99) mg/dL Troponin I 0.199 H* (0.000-0.034) ng/mL
== END 2019-03-08 10:57 | disposition home or self-care (01) | DRG 392 ==
LOC: EC 18:29 → 3SCARD 23:58
PROVIDERS: ADMIT Internal Medicine; ATTEND Internal Medicine
DX: A08.4 Viral intestinal infection, unspecified (principal); B30.9 Viral conjunctivitis, unspecified; E78.5 Hyperlipidemia, unspecified; H40.9 Unspecified glaucoma; I10 Essential (primary) hypertension; I44.0 Atrioventricular block, first degree; J32.2 Chronic ethmoidal sinusitis; J45.909 Unspecified asthma, uncomplicated; Z79.899 Other long term (current) drug therapy; J06.9 Acute upper respiratory infection, unspecified; Z88.6 Allergy status to analgesic agent; Z88.5 Allergy status to narcotic agent; Z88.0 Allergy status to penicillin; Z88.8 Allergy status to other drugs, medicaments and biological substances; M19.90 Unspecified osteoarthritis, unspecified site; R74.8 Abnormal levels of other serum enzymes; D72.829 Elevated white blood cell count, unspecified; Z90.49 Acquired absence of other specified parts of digestive tract; Z98.84 Bariatric surgery status; Z98.42 Cataract extraction status, left eye; Z98.41 Cataract extraction status, right eye
CPT/HCPCS: 36415; 70450; 71046; 74177; 80053; 81001; 83690; 83880; 84484; 85025; 85379; 87324; 87502; 93005; 93306; 96361; 96374; 96375; 99285

== ENCOUNTER 2020-08-05 15:25 | Inpatient (IN) | payer MEDICARE ==
[2020-08-05 15:59] LABS: Basophils # (A) 0.1 k/uL (0-0.2); Basophils % (A) 1 %; Eosinophils # (A) 0.6 k/uL (0-0.7); Eosinophils % (A) 6 %; HCT 39.3 % (39.0-53.0); Lymphocytes # (A) 2.1 k/uL (1.0-4.8); Lymphocytes % (A) 24 %; MCH 31.3 pg (25.0-35.0); MCV 94.7 fL (80.0-100.0); Mean Platelet Volume 7.1; Monocytes # (A) 0.4 k/uL (0-1.0); Monocytes % (A) 5 %; Neutrophils # (A) 5.5 k/uL (1.3-7.7); Neutrophils % (A) 63 %; Platelet Count 200 k/uL (150-450); RBC 4.15 m/uL (4.30-5.90); RDW 15.3 % (11.5-15.5); WBC 8.7 k/uL (3.8-10.6)
[2020-08-05] MEDS ORDERED: HEPARIN SODIUM,PORCINE 5,000 UNIT/ML 1 ML VIAL IV PRN (16:00)
[2020-08-05] MEDS ORDERED: HEPARIN SODIUM,PORCINE 5,000 UNIT/ML 1 ML VIAL IV STA (16:01)
[2020-08-05 16:06] LABS: Partial Thromboplastin Time 23.8 sec (22.0-30.0); Prothrombin Time 10.7 sec (9.0-12.0)
[2020-08-05 16:10] LABS: ALT 24 U/L (4-49); AST 32 U/L (17-59); African American GFR (CKD) >90 (>60 ml/min/1.73 sqM); Albumin 4.1 g/dL (3.5-5.0); Alkaline Phosphatase 63 U/L (38-126); Anion Gap 10 mmol/L; Blood Urea Nitrogen 16 mg/dL (9-20); Calcium 9.3 mg/dL (8.4-10.2); Carbon Dioxide 24 mmol/L (22-30); Chloride 105 mmol/L (98-107); Glucose 96 mg/dL (74-99); Magnesium 1.8 mg/dL (1.6-2.3); Non-African American GFR(CKD) >90 (>60 ml/min/1.73 sqM); Potassium 3.8 mmol/L (3.5-5.1); Sodium 139 mmol/L (137-145); Total Bilirubin 0.8 mg/dL (0.2-1.3); Total Protein 7.3 g/dL (6.3-8.2)
[2020-08-05] MEDS: HEPARIN SOD,PORK IN 0.45% NACL 25,000 UNIT in 0.45% NACL 1 250ML.BAG IV SCH (17:22)
[2020-08-05] MEDS ORDERED: TEMAZEPAM 15 MG CAP PO PRN (17:23)
[2020-08-05] MEDS ORDERED: NALOXONE 0.4 MG/ML 1 ML VIAL IV PRN (17:23)
[2020-08-05] MEDS ORDERED: MAG HYDROX/AL HYDROX/SIMETH 30 ML CUP PO PRN (17:23)
[2020-08-05] MEDS ORDERED: MORPHINE SULFATE 4 MG/ML SYRINGE IV PRN (17:23)
[2020-08-05] MEDS ORDERED: HYDROcodone/APAP 5-325MG 1 EACH TAB PO PRN (17:23)
--- NOTE | 2020-08-05 17:23 | ED ---
General Adult HPI - General Chief complaint: Recheck/Abnormal Lab/Rx Stated complaint: Sent by PCP - Blood Clot in Lung Time Seen by Provider: 08/05/20 15:32 Source: patient Mode of arrival: ambulatory Limitations: no limitations - History of Present Illness Initial comments: Patient has been having shortness of breath. He has no chest pain or pressure. He has no nausea or vomiting. He states that shortness of breath is worse with any type of walking or exertion. He denies any pain or swelling in the arms or legs. He had cold that earlier this year. - Related Data Home Medications Medication Instructions Recorded Confirmed Albuterol Sulfate [Proair Hfa] 2 puff INHALATION RT-Q6H PRN 04/04/15 08/05/20 Cyanocobalamin [Vitamin B-12] 500 mcg PO DAILY 06/08/15 08/05/20 traMADol HCL [Ultram] 50 - 100 mg PO TID PRN 03/06/19 08/05/20 Ascorbic Acid [Vitamin C] 500 mg PO DAILY 08/05/20 08/05/20 Aspirin EC [Ecotrin Low Dose] 81 mg PO DAILY 08/05/20 08/05/20 Atorvastatin [Lipitor] 10 mg PO HS 08/05/20 08/05/20 Brinzolamide [Azopt 1% Ophth Susp] 1 drop BOTH EYES BID 08/05/20 08/05/20 Cholecalciferol [Vitamin D3 (25 25 mcg PO DAILY 08/05/20 08/05/20 Mcg = 1000 Iu)] Ferrous Sulfate [Iron (65 MG 325 mg PO DAILY 08/05/20 08/05/20 Elemental)] SILVER sulfADIAZINE Cream 1 applic TOPICAL BID 08/05/20 08/05/20 [Silvadene 1% Cream] Travoprost 1 drop BOTH EYES HS 08/05/20 08/05/20 amLODIPine [Norvasc] 5 mg PO DAILY 08/05/20 08/05/20 hydroCHLOROthiazide [Hydrodiuril] 25 mg PO DAILY 08/05/20 08/05/20 Allergies Allergy/AdvReac Type Severity Reaction Status Date / Time acetaminophen [From Vicodin] Allergy Rash/Hives Verified 08/05/20 16:59 hydrocodone bitartrate Allergy Rash/Hives Verified 08/05/20 16:59 [From Vicodin] Penicillins Allergy Rash/Hives Verified 08/05/20 16:59 cortisone AdvReac Abdominal Verified 08/05/20 16:59 Pain NSAIDS (Non-Steroidal AdvReac Abdominal Verified 08/05/20 16:59 Anti-Inflamma Pain prednisone AdvReac Abdominal Verified 08/05/20 16:59 Pain Review of Systems ROS Statement: Those systems with pertinent positive or pertinent negative responses have been documented in the HPI. ROS Other: All systems not noted in ROS Statement are negative. Past Medical History Past Medical History: Asthma, Eye Disorder, Hyperlipidemia, Hypertension, Osteoarthritis (OA) Additional Past Medical History / Comment(s): BILAT GLAUCOMA AND CATARACTS History of Any Multi-Drug Resistant Organisms: None Reported Past Surgical History: Bariatric Surgery, Cholecystectomy, Hernia Repair, Orthopedic Surgery, Tonsillectomy Additional Past Surgical History / Comment(s): ANAL FISSURE REMOVED. RT ROTATOR CUFF REPAIR. LAP BAND IN AND THEN REMOVED. WARTS REMOVED FROM LOWER EXTREMIES. COLONOSCOPY. SURGERY BILAT EYES FOR CATARACTS AND GLAUCOMA. EGD. RT KNEE SCOPE Past Anesthesia/Blood Transfusion Reactions: No Reported Reaction Additional Past Anesthesia/Blood Transfusion Reaction / Comment(s): Pt has never received blood. Past Psychological History: No Psychological Hx Reported Past Alcohol Use History: None Reported Past Drug Use History: None Reported - Past Family History Mother Family Medical History: Unable to Obtain Additional Family Medical History / Comment(s): FAMILY HX UNKNOWN PT IN FOSTER CARE CHILD Father History Unknown: Yes Family Medical History: Unable to Obtain Additional Family Medical History / Comment(s): Pt raised in foster care. General Exam Limitations: no limitations General appearance: alert, in no apparent distress Head exam: Present: atraumatic, normocephalic, normal inspection Eye exam: Present: normal appearance, PERRL, EOMI. Absent: scleral icterus, conjunctival injection, periorbital swelling ENT exam: Present: normal exam, mucous membranes moist Neck exam: Present: normal inspection. Absent: tenderness, meningismus, lymphadenopathy Respiratory exam: Present: normal lung sounds bilaterally. Absent: respiratory distress, wheezes, rales, rhonchi, stridor Cardiovascular Exam: Present: regular rate, normal rhythm, normal heart sounds. Absent: systolic murmur, diastolic murmur, rubs, gallop, clicks GI/Abdominal exam: Present: soft, normal bowel sounds. Absent: distended, tenderness, guarding, rebound, rigid Extremities exam: Present: normal inspection, full ROM, normal capillary refill. Absent: tenderness, pedal edema, joint swelling, calf tenderness Back exam: Present: normal inspection Neurological exam: Present: alert, oriented X3, CN II-XII intact Psychiatric exam: Present: normal affect, normal mood Skin exam: Present: warm, dry, intact, normal color. Absent: rash Course Vital Signs 08/05/20 15:27 Temperature 98.5 F Pulse Rate 81 Respiratory 16 Rate Blood Pressure 178/79 O2 Sat by Pulse 96 Oximetry EKG Findings - EKG Comments: EKG Findings:: Twelve-lead EKG shows ventricular rate 76 bpm, normal ID interval and Yordan complex is, no ST elevation or depression, interpreted by me as normal sinus rhythm. Medical Decision Making - Medical Decision Making Patient presents with shortness of breath, worse with exertion. CT shows bilateral PE. I ordered IV heparin. Patient will be admitted to the hospital. - Lab Data Result diagrams: 08/05/20 15:45 08/05/20 15:45 Lab Results 08/05/20 08/05/20 08/05/20 Range/Units 15:45 15:45 15:45 WBC 8.7 (3.8-10.6) k/uL RBC 4.15 L (4.30-5.90) m/uL Hgb 13.0 (13.0-17.5) gm/dL Hct 39.3 (39.0-53.0) % MCV 94.7 (80.0-100.0) fL MCH 31.3 (25.0-35.0) pg MCHC 33.0 (31.0-37.0) g/dL RDW 15.3 (11.5-15.5) % Plt Count 200 (150-450) k/uL MPV 7.1 Neutrophils % 63 % Lymphocytes % 24 % Monocytes % 5 % Eosinophils % 6 % Basophils % 1 % Neutrophils # 5.5 (1.3-7.7) k/uL Lymphocytes # 2.1 (1.0-4.8) k/uL Monocytes # 0.4 (0-1.0) k/uL Eosinophils # 0.6 (0-0.7) k/uL Basophils # 0.1 (0-0.2) k/uL PT 10.7 (9.0-12.0) sec INR 1.0 (<1.2) APTT 23.8 (22.0-30.0) sec Sodium 139 (137-145) mmol/L Potassium 3.8 (3.5-5.1) mmol/L Chloride 105 (98-107) mmol/L Carbon Dioxide 24 (22-30) mmol/L Anion Gap 10 mmol/L BUN 16 (9-20) mg/dL Creatinine 0.74 (0.66-1.25) mg/dL Est GFR (CKD-EPI)AfAm >90 (>60 ml/min/1.73 sqM) Est GFR (CKD-EPI)NonAf >90 (>60 ml/min/1.73 sqM) Glucose 96 (74-99) mg/dL Calcium 9.3 (8.4-10.2) mg/dL Magnesium 1.8 (1.6-2.3) mg/dL Total Bilirubin 0.8 (0.2-1.3) mg/dL AST 32 (17-59) U/L ALT 24 (4-49) U/L Alkaline Phosphatase 63 (38-126) U/L Troponin I (0.000-0.034) ng/mL NT-Pro-B Natriuret Pep pg/mL Total Protein 7.3 (6.3-8.2) g/dL Albumin 4.1 (3.5-5.0) g/dL Coronavirus (PCR) (Not Detectd) 08/05/20 08/05/20 08/05/20 Range/Units 15:45 15:45 15:45 WBC (3.8-10.6) k/uL RBC (4.30-5.90) m/uL Hgb (13.0-17.5) gm/dL Hct (39.0-53.0) % MCV (80.0-100.0) fL MCH (25.0-35.0) pg MCHC (31.0-37.0) g/dL RDW (11.5-15.5) % Plt Count (150-450) k/uL MPV Neutrophils % % Lymphocytes % % Monocytes % % Eosinophils % % Basophils % % Neutrophils # (1.3-7.7) k/uL Lymphocytes # (1.0-4.8) k/uL Monocytes # (0-1.0) k/uL Eosinophils # (0-0.7) k/uL Basophils # (0-0.2) k/uL PT (9.0-12.0) sec INR (<1.2) APTT (22.0-30.0) sec Sodium (137-145) mmol/L Potassium (3.5-5.1) mmol/L Chloride (98-107) mmol/L Carbon Dioxide (22-30) mmol/L Anion Gap mmol/L BUN (9-20) mg/dL Creatinine (0.66-1.25) mg/dL Est GFR (CKD-EPI)AfAm (>60 ml/min/1.73 sqM) Est GFR (CKD-EPI)NonAf (>60 ml/min/1.73 sqM) Glucose (74-99) mg/dL Calcium (8.4-10.2) mg/dL Magnesium (1.6-2.3) mg/dL Total Bilirubin (0.2-1.3) mg/dL AST (17-59) U/L ALT (4-49) U/L Alkaline Phosphatase (38-126) U/L Troponin I 0.040 H* (0.000-0.034) ng/mL NT-Pro-B Natriuret Pep 153 pg/mL Total Protein (6.3-8.2) g/dL Albumin (3.5-5.0) g/dL Coronavirus (PCR) Not Detected (Not Detectd) Critical Care Time Critical Care Time: Yes Total Critical Care Time: 35 Disposition Clinical Impression: Pulmonary emboli Disposition: ADMITTED IP TO THIS HOSP Condition: Fair Is patient prescribed a controlled substance at d/c from ED?: No Referrals: Yen Degroot MD [Primary Care Provider] - 1-2 days
[2020-08-05] MEDS ORDERED: ALBUTEROL HFA INHALER INHALATION PRN (17:24)
[2020-08-05] MEDS: ATORVASTATIN 10 MG TAB PO SCH (20:05)
[2020-08-05] MEDS: LATANOPROST 0.005% OPHTH DROPS 2.5 ML BTL BOTH EYES SCH (20:06)
[2020-08-05] MEDS: DORZOLAMIDE HCL 2% DROPS 10 ML BTL BOTH EYES SCH (20:06)
--- NOTE | 2020-08-05 22:07 | P.HPIM ---
History of Present Illness H&P Date: 08/05/20 Chief Complaint: Shortness of breath Patient is a 70-year-old male with a known history of hypertension, hyperlipidemia, osteoarthritis, asthma and recent history of COVID-19 infection diagnosed on number 2019 and was in the hospital for 5 days. Patient states that he has been having shortness of breath and feeling tired for the past few weeks. He gets short of breath while shopping and has to go to go back to his car to rest for some time. Denied any leg swelling. Denied chest pain. Patient states that he always leg swelling left greater than right. Patient follows with Dr. Smith in the clinic. Today he went to the clinic and was found to be hypoxic and short of breath. Patient was referred to ER for CT angiogram of the chest. CT angio of the chest showed there appears to be pulmonary emboli within the upper lung burr bilaterally. Scattered mild lower lobe and pulmonary fibrosis. Mild pulmonary hypertension in the present. EKG showed sinus rhythm with premature use atrial complexes. Laboratory data showed WBC 8.7, hemoglobin 13.0 and platelets 200 Sodium 139 potassium 3.8 chloride 105 BUN 16 and creatinine 0.75 Troponin 0 0.040, 0.056 and proBNP level is 153 COVID-19 PCR not detected. Review of Systems Constitutional: Patient denies any fever or chills . No generalized weakness or weight loss. Abdomen: Patient denied nausea vomiting and diarrhea and abdominal pain. Cardiovascular: Patient denies any chest pain/ no palpitations. Respiratory: patient denied any cough or sputum production. + shortness of breath Neurologic: Patient denied any numbness or tingling headache. Musculoskeletal: Patient denies any complaints of joint swelling or deformity. Skin: Negative Psychiatric: Negative Endocrine: No heat or cold intolerance. No recent weight gain. Genitourinary: No dysuria or hematuria. All other 14 point ROS negative except the above Past Medical History Past Medical History: Asthma, Eye Disorder, Hyperlipidemia, Hypertension, Osteoarthritis (OA) Additional Past Medical History / Comment(s): BILAT GLAUCOMA AND CATARACTS History of Any Multi-Drug Resistant Organisms: None Reported Past Surgical History: Bariatric Surgery, Cholecystectomy, Hernia Repair, Orthopedic Surgery, Tonsillectomy Additional Past Surgical History / Comment(s): ANAL FISSURE REMOVED. RT ROTATOR CUFF REPAIR. LAP BAND IN AND THEN REMOVED. WARTS REMOVED FROM LOWER EXTREM IES. COLONOSCOPY. SURGERY BILAT EYES FOR CATARACTS AND GLAUCOMA. EGD. RT KNEE SCOPE Past Anesthesia/Blood Transfusion Reactions: No Reported Reaction Additional Past Anesthesia/Blood Transfusion Reaction / Comment(s): Pt has never received blood. Past Psychological History: No Psychological Hx Reported Additional Psychological History / Comment(s): Pt resides with his spouse. He uses a cane if needed. He drives. He is independent. Smoking Status: Never smoker Past Alcohol Use History: None Reported Past Drug Use History: None Reported - Past Family History Mother Family Medical History: Unable to Obtain Additional Family Medical History / Comment(s): FAMILY HX UNKNOWN PT IN [facility] C[facility] CHILD Father History Unknown: Yes Family Medical History: Unable to Obtain Additional Family Medical History / Comment(s): Pt raised in foster care. Medications and Allergies Home Medications Medication Instructions Recorded Confirmed Type Albuterol Sulfate [Proair Hfa] 2 puff INHALATION RT-Q6H PRN 04/04/15 08/05/20 History Cyanocobalamin [Vitamin B-12] 500 mcg PO DAILY 06/08/15 08/05/20 History traMADol HCL [Ultram] 50 - 100 mg PO TID PRN 03/06/19 08/05/20 History Ascorbic Acid [Vitamin C] 500 mg PO DAILY 08/05/20 08/05/20 History Aspirin EC [Ecotrin Low Dose] 81 mg PO DAILY 08/05/20 08/05/20 History Atorvastatin [Lipitor] 10 mg PO HS 08/05/20 08/05/20 History Brinzolamide [Azopt 1% Ophth Susp] 1 drop BOTH EYES BID 08/05/20 08/05/20 History Cholecalciferol [Vitamin D3 (25 25 mcg PO DAILY 08/05/20 08/05/20 History Mcg = 1000 Iu)] Ferrous Sulfate [Iron (65 MG 325 mg PO DAILY 08/05/20 08/05/20 History Elemental)] SILVER sulfADIAZINE Cream 1 applic TOPICAL BID 08/05/20 08/05/20 History [Silvadene 1% Cream] Travoprost 1 drop BOTH EYES HS 08/05/20 08/05/20 History amLODIPine [Norvasc] 5 mg PO DAILY 08/05/20 08/05/20 History hydroCHLOROthiazide [Hydrodiuril] 25 mg PO DAILY 08/05/20 08/05/20 History Allergies Allergy/AdvReac Type Severity Reaction Status Date / Time acetaminophen [From Vicodin] Allergy Rash/Hives Verified 08/05/20 16:59 hydrocodone bitartrate Allergy Rash/Hives Verified 08/05/20 16:59 [From Vicodin] Penicillins Allergy Rash/Hives Verified 08/05/20 16:59 cortisone AdvReac Abdominal Verified 08/05/20 16:59 Pain NSAIDS (Non-Steroidal AdvReac Abdominal Verified 08/05/20 16:59 Anti-Inflamma Pain prednisone AdvReac Abdominal Verified 08/05/20 16:59 Pain Physical Exam Vitals: Vital Signs Temp Pulse Pulse Resp BP BP Pulse Ox 08/05/20 20:00 97.9 F 70 18 122/56 100 08/05/20 19:52 18 08/05/20 17:30 62 18 144/74 99 08/05/20 15:27 98.5 F 81 16 178/79 96 Intake and Output 08/05/20 08/05/20 08/05/20 06:59 14:59 22:59 Other: Voiding Method Toilet Urinal Weight 130.181 kg PHYSICAL EXAMINATION: Patient is lying in the bed comfortably, no acute distress, awake alert and oriented.. HEENT: Normocephalic. Neck is supple. Pupils reactive. Nostrils clear. Oral cavity is moist. Ears reveal no drainage. Neck reveals no JVD, carotid bruits, or thyromegaly. CHEST EXAMINATION: Trachea is central. Symmetrical expansion. Lung burr clear to auscultation and percussion. CARDIAC: Normal S1, S2 with no gallops. No murmurs ABDOMEN: Soft. Bowel sounds normal. No organomegaly. No abdominal bruits. Extremities: 2+ edema. No clubbing or cyanosis Neurologically awake, alert, oriented x3 with well-coordinated movements. No focal deficits noted Skin: No rash or skin lesions. Psychiatric: Coperative. Nonsuicidal Musculoskeletal: No joint swelling or deformity. Normal range of motion. Results CBC & Chem 7: 08/05/20 15:45 08/05/20 15:45 Labs: Abnormal Lab Results - Last 24 Hours (Table) 08/05/20 08/05/20 08/05/20 Range/Units 15:45 15:45 19:21 RBC 4.15 L (4.30-5.90) m/uL Troponin I 0.040 H* 0.056 H* (0.000-0.034) ng/mL Thrombosis Risk Factor Assmnt - DVT/VTE Prophylaxis DVT/VTE Prophylaxis: Pharmacologic Prophylaxis ordered - Choose All That Apply Any of the Below Risk Factors Present?: No Other Risk Factors: Yes Each Risk Factor Represents 2 Points: Age 61-74 years Each Risk Factor Represents 3 Points: History of DVT/PE Other congenital or acquired thrombophilia - If yes, enter type in comment: No Thrombosis Risk Factor Assessment Total Risk Factor Score: 5 Thrombosis Risk Factor Assessment Level: High Risk Assessment and Plan Assessment: Acute pulmonary embolism involving bilateral upper lung burr likely due to recent COVID-19 infection. Shortness of breath and hypoxia secondary to above Mildly elevated troponin level Hypertension Hyperlipidemia Osteoarthritis Bilateral glaucoma and cataracts History of lap band surgery and removal. No prior history of smoking DVT prophylaxis patient is already on heparin drip Plan: Patient will be continued on oxygen supplementation and heparin drip was started . Continue with home medications and follow-up H&H. Pulmonary was consulted and further recommendations based on the clinical course. Time with Patient: Greater than 30
[2020-08-06] MEDS: HEPARIN SOD,PORK IN 0.45% NACL 25,000 UNIT in 0.45% NACL 1 250ML.BAG IV SCH ×2 (06:30→15:28)
[2020-08-06 07:11] LABS: Basophils # (A) 0.1 k/uL (0-0.2); Basophils % (A) 1 %; Eosinophils # (A) 0.5 k/uL (0-0.7); Eosinophils % (A) 6 %; HCT 37.8 % (39.0-53.0); HGB 12.6 gm/dL (13.0-17.5); Lymphocytes % (A) 26 %; MCH 31.9 pg (25.0-35.0); MCHC 33.4 g/dL (31.0-37.0); MCV 95.5 fL (80.0-100.0); Mean Platelet Volume 7.7; Monocytes # (A) 0.4 k/uL (0-1.0); Monocytes % (A) 6 %; Neutrophils # (A) 4.5 k/uL (1.3-7.7); Neutrophils % (A) 60 %; Platelet Count 173 k/uL (150-450); RBC 3.95 m/uL (4.30-5.90); RDW 14.8 % (11.5-15.5); WBC 7.6 k/uL (3.8-10.6)
[2020-08-06] MEDS: ASPIRIN 81 MG PO SCH (08:30)
[2020-08-06] MEDS: DORZOLAMIDE HCL 2% DROPS 10 ML BTL BOTH EYES SCH ×2 (08:30→20:38)
[2020-08-06] MEDS: hydroCHLOROthiazide 25 MG TAB PO SCH (08:30)
[2020-08-06] MEDS: CHOLECALCIFEROL 25 MCG (1000 IU) TABLET PO SCH (08:30)
[2020-08-06] MEDS: CYANOCOBALAMIN 500 MCG TAB PO SCH (08:30)
[2020-08-06] MEDS: amLODIPine 5 MG TAB PO SCH (08:30)
--- NOTE | 2020-08-06 08:52 | US ---
EXAMINATION TYPE: US venous doppler duplex LE BI DATE OF EXAM: 08/05/2020 10:09 PM COMPARISON: NONE CLINICAL HISTORY: 70-year-old male with leg swelling. PE, patient on blood thinners SIDE PERFORMED: Bilateral TECHNIQUE: The lower extremity deep venous system is examined utilizing real time linear array sonog corwin with graded compression, doppler sonography and color-flow sonography. FINDINGS: VESSELS IMAGED: Common Femoral Vein Deep Femoral Vein Greater Saphenous Vein * Femoral Vein Popliteal Vein Small Saphenous Vein * Proximal Calf Veins (* superficial vessels) Operations Supervisor notes:Difficult and limited study due to patient body habitus Right Leg: Appears negative for DVT Left Leg: Appears negative for DVT IMPRESSION: Some technical limitations due to patient body habitus. No DVT visualized in the bilateral lower extr emities imaged from the groin to the upper calves.
--- NOTE | 2020-08-06 12:35 | P.CNPUL ---
History of Present Illness Consult date: 08/06/20 Reason for consult: dyspnea, pulmonary embolism History of present illness: Mr. La is 70 and the patient was referred to the hospital from our office for shortness of breath. The patient was at [facility] back in April 2020 for an acute coronary bypass/code 19 infection. He was hospitalized for a total of 5 days and he was discharged home. He does not use any form of oxygen therapy at home. Is morbidly obese. He has undergone a previous lap band surgery. He claims that he was active at home and he was not sedentary. The patient subsequently noted some worsening shortness of breath special walking around in the mall and he was having progressive exertional dyspnea. For that reason, he went and saw Dr. Jones on in the office will in turn referred this patient for a CT angiogram and the patient underwent the study it was positive for pulmonary embolism. There was filling defect in the right upper lobe pulmonary artery branch and left upper lobe pulmonary artery branch and this isn't some abnormalities within the lingular pulmonary artery branch. The mediastinum was free of any disease. Some scattered groundglass opacities in the right midlung in the lower lung burr along with some limited fibrotic changes involving the lingular segment and in the lung bases. Doppler of the lower extremity was negative. The patient is currently having some minimal troponin leak disease with this acute pulmonary embolism. The troponins are 0.04 0.05 and 0.07 respectively. Her coagulation profile was normal. He was placed on IV heparin. Heparin level came back supratherapeutic and the was wasn't used. He is resting comfortably right now in a chair. He is on IV heparin.. The patient is not aware of any personal history of DVT or pulmonary embolism. His family history is not known as the patient did not know his parents. No 69 since surgery. Only risk factor is the covid 19 infection that occurred back in April 2020 in addition to his relatively sedentary lifestyle. Review of Systems Constitutional: Reports weight gain Eyes: denies as per HPI, denies blurred vision, denies bulging eye, denies decreased vision, denies diplopia, denies discharge, denies dry eye, denies irritation, denies itching, denies pain, denies photophobia, denies loss of peripheral vision, denies loss of vision, denies tunnel vision/blind spots Ears: deny: decreased hearing, ear discharge, earache, tinnitus Ears, nose, mouth and throat: Denies headache, Denies sore throat Breasts: absent: as per HPI, gynecomastia Cardiovascular: Reports decreased exercise tolerance, Reports dyspnea on exertion, Reports shortness of breath Respiratory: Reports dyspnea Gastrointestinal: Reports as per HPI Genitourinary: Reports as per HPI Musculoskeletal: Reports as per HPI Musculoskeletal: bilateral: ankle swelling, absent: ankle pain, ankle stiffness Integumentary: Reports as per HPI Neurological: Reports as per HPI, Reports weakness Psychiatric: Reports as per HPI Endocrine: Reports increase in ring/shoe/hat size Allergic/Immunologic: Reports as per HPI Past Medical History Past Medical History: Asthma, Eye Disorder, Hyperlipidemia, Hypertension, Osteoarthritis (OA) Additional Past Medical History / Comment(s): COVID 19 infection, BILAT GLAUCOMA AND CATARACTS, obesity History of Any Multi-Drug Resistant Organisms: None Reported Past Surgical History: Bariatric Surgery, Cholecystectomy, Hernia Repair, Orthopedic Surgery, Tonsillectomy Additional Past Surgical History / Comment(s): ANAL FISSURE REMOVED. RT ROTATOR CUFF REPAIR. LAP BAND IN AND THEN REMOVED. WARTS REMOVED FROM LOWER EXTREMIES. COLONOSCOPY. SURGERY BILAT EYES FOR CATARACTS AND GLAUCOMA. EGD. RT KNEE SCOPE Past Anesthesia/Blood Transfusion Reactions: No Reported Reaction Additional Past Anesthesia/Blood Transfusion Reaction / Comment(s): Pt has never received blood. Past Psychological History: No Psychological Hx Reported Additional Psychological History / Comment(s): Pt resides with his spouse. He uses a cane if needed. He drives. He is independent. Smoking Status: Never smoker Past Alcohol Use History: None Reported Past Drug Use History: None Reported - Past Family History Mother Family Medical History: Unable to Obtain Additional Family Medical History / Comment(s): FAMILY HX UNKNOWN PT IN FOSTER CARE CHILD Father History Unknown: Yes Family Medical History: Unable to Obtain Additional Family Medical History / Comment(s): Pt raised in foster care. Medications and Allergies Home Medications Medication Instructions Recorded Confirmed Type Albuterol Sulfate [Proair Hfa] 2 puff INHALATION RT-Q6H PRN 04/04/15 08/05/20 History Cyanocobalamin [Vitamin B-12] 500 mcg PO DAILY 06/08/15 08/05/20 History traMADol HCL [Ultram] 50 - 100 mg PO TID PRN 03/06/19 08/05/20 History Ascorbic Acid [Vitamin C] 500 mg PO DAILY 08/05/20 08/05/20 History Aspirin EC [Ecotrin Low Dose] 81 mg PO DAILY 08/05/20 08/05/20 History Atorvastatin [Lipitor] 10 mg PO HS 08/05/20 08/05/20 History Brinzolamide [Azopt 1% Ophth Susp] 1 drop BOTH EYES BID 08/05/20 08/05/20 History Cholecalciferol [Vitamin D3 (25 25 mcg PO DAILY 08/05/20 08/05/20 History Mcg = 1000 Iu)] Ferrous Sulfate [Iron (65 MG 325 mg PO DAILY 08/05/20 08/05/20 History Elemental)] SILVER sulfADIAZINE Cream 1 applic TOPICAL BID 08/05/20 08/05/20 History [Silvadene 1% Cream] Travoprost 1 drop BOTH EYES HS 08/05/20 08/05/20 History amLODIPine [Norvasc] 5 mg PO DAILY 08/05/20 08/05/20 History hydroCHLOROthiazide [Hydrodiuril] 25 mg PO DAILY 08/05/20 08/05/20 History Allergies Allergy/AdvReac Type Severity Reaction Status Date / Time acetaminophen [From Vicodin] Allergy Rash/Hives Verified 08/05/20 16:59 hydrocodone bitartrate Allergy Rash/Hives Verified 08/05/20 16:59 [From Vicodin] Penicillins Allergy Rash/Hives Verified 08/05/20 16:59 cortisone AdvReac Abdominal Verified 08/05/20 16:59 Pain NSAIDS (Non-Steroidal AdvReac Abdominal Verified 08/05/20 16:59 Anti-Inflamma Pain prednisone AdvReac Abdominal Verified 08/05/20 16:59 Pain Physical Exam Vitals: Vital Signs Temp Pulse Pulse Resp BP BP Pulse Ox 08/06/20 11:59 97.8 F 62 18 129/65 98 08/06/20 08:27 97.8 F 64 18 148/73 100 08/06/20 08:00 64 18 08/06/20 04:00 98.0 F 61 18 154/70 99 08/06/20 02:00 63 18 08/05/20 23:58 98 08/05/20 23:34 98.0 F 63 18 152/74 99 08/05/20 20:00 97.9 F 70 18 122/56 100 08/05/20 19:52 18 08/05/20 17:30 62 18 144/74 99 08/05/20 15:27 98.5 F 81 16 178/79 96 Intake and Output 08/05/20 08/06/20 08/06/20 22:59 06:59 14:59 Intake Total 260.000 585.765 Balance 260.000 585.765 Intake: IV 10 0.9 10 Intake, IV Titration 250.000 25.765 Amount Heparin Sod,Pork in 0.45% 250.000 25.765 NaCl 25,000 unit In 0.45 % NaCl 1 250ml.bag @ 17. 66 UNITS/KG/HR 22.99 mls/ hr IV .[id number] [facility] Rx#: [id number] Oral 560 Other: Voiding Method Toilet Toilet Toilet Urinal Urinal Urinal # Voids 1 Weight 130.181 kg 132.6 kg Results - Laboratory Findings CBC and BMP: 08/06/20 06:51 08/05/20 15:45 PT/INR, D-dimer PT 10.7 sec (9.0-12.0) 08/05/20 15:45 INR 1.0 (<1.2) 08/05/20 15:45 Abnormal lab findings: Abnormal Labs 08/05/20 08/05/20 08/05/20 15:45 15:45 19:21 RBC 4.15 L Hgb Hct APTT Troponin I 0.040 H* 0.056 H* 08/05/20 08/05/20 08/06/20 23:00 23:00 06:51 RBC 3.95 L Hgb 12.6 L Hct 37.8 L APTT >200.0 H* Troponin I 0.078 H* 08/06/20 06:51 RBC Hgb Hct APTT 123.1 H* Troponin I - Diagnostic Findings Chest x-ray: image reviewed CT scan - chest: image reviewed Assessment and Plan Plan: 1 acute bilateral pulmonary embolism risk factors being coronavirus COVID19 infection that could be potentially causing the patient to be hypercoagulable up to 2 months post infection in addition to his obesity incidentally lifestyle. No other identifiable risk factors. His family history is not known. The Doppler of the lower extremity has been negative. The patient is hemodynamically stable 2 acute shortness of breath secondary to above 3 coronavirus/COVID 19 infection back in April 2020 and the patient has recovered nicely to repeat Covid 19 testing came back negative recovered. 4 chronic bronchial asthma, mild intermittent in nature maintained on Proventil rescue inhaler on as needed basis. 5 morbid obesity with a previous lap band insertion of removal 6 troponin leak could be related to pulmonary embolism, awaiting echocardiogram to evaluate the patient for any right-sided strain pattern 7 hyperlipidemia 8 hypertension 9 osteoarthritis 10 glucoma Plan IV heparin for the next 24 hours and transition this patient to oral anticoagulants probably in the form of Xarelto or Eliquis Doppler of the lower extremities is a been negative Awaiting echocardiogram to evaluate LV function and RV function and strain pattern and pulmonary hypertension Monitor hematologic profile We'll continue to follow.
[2020-08-06] MEDS: ATORVASTATIN 10 MG TAB PO SCH (20:37)
[2020-08-06] MEDS: LATANOPROST 0.005% OPHTH DROPS 2.5 ML BTL BOTH EYES SCH (20:37)
[2020-08-07] MEDS: HEPARIN SOD,PORK IN 0.45% NACL 25,000 UNIT in 0.45% NACL 1 250ML.BAG IV SCH (00:26)
[2020-08-07 08:03] VITALS: RESP 18; TEMP 98.3
[2020-08-07] MEDS: hydroCHLOROthiazide 25 MG TAB PO SCH (08:03)
[2020-08-07] MEDS: ASPIRIN 81 MG PO SCH (08:03)
[2020-08-07] MEDS: DORZOLAMIDE HCL 2% DROPS 10 ML BTL BOTH EYES SCH (08:04)
[2020-08-07] MEDS: amLODIPine 5 MG TAB PO SCH (08:04)
[2020-08-07] MEDS: CHOLECALCIFEROL 25 MCG (1000 IU) TABLET PO SCH (08:04)
[2020-08-07] MEDS: CYANOCOBALAMIN 500 MCG TAB PO SCH (08:04)
[2020-08-07 09:29] LABS: Basophils # (A) 0.1 k/uL (0-0.2); Basophils % (A) 1 %; Eosinophils # (A) 0.5 k/uL (0-0.7); Eosinophils % (A) 6 %; HCT 39.7 % (39.0-53.0); Lymphocytes # (A) 2.4 k/uL (1.0-4.8); Lymphocytes % (A) 27 %; MCH 31.1 pg (25.0-35.0); MCHC 32.7 g/dL (31.0-37.0); MCV 94.9 fL (80.0-100.0); Mean Platelet Volume 8.4; Monocytes # (A) 0.5 k/uL (0-1.0); Monocytes % (A) 6 %; Neutrophils # (A) 5.1 k/uL (1.3-7.7); Neutrophils % (A) 59 %; Platelet Count 215 k/uL (150-450); RBC 4.18 m/uL (4.30-5.90); RDW 15.3 % (11.5-15.5); WBC 8.6 k/uL (3.8-10.6)
[2020-08-07] MEDS ORDERED: RIVAROXABAN 15 MG TAB PO SCH (10:00)
[2020-08-07 11:17] VITALS: BP 143/67; PULSE 61
--- NOTE | 2020-08-07 12:20 | P.PN ---
Subjective Progress Note Date: 08/07/20 Mr. Jerez is 70 and the patient was referred to the hospital from our office for shortness of breath. The patient was at [facility] back in April 2020 for an acute coronary bypass/code 19 infection. He was hospitalized for a total of 5 days and he was discharged home. He does not use any form of oxygen therapy at home. Is morbidly obese. He has undergone a previous lap band surgery. He claims that he was active at home and he was not sedentary. The patient subsequently noted some worsening shortness of breath special walking around in the mall and he was having progressive exertional dyspnea. For that reason, he went and saw Dr. Jones on in the office will in turn referred this patient for a CT angiogram and the patient underwent the study it was positive for pulmonary embolism. There was filling defect in the right upper lobe pulmonary artery branch and left upper lobe pulmonary artery branch and this isn't some abnormalities within the lingular pulmonary artery b ranch. The mediastinum was free of any disease. Some scattered groundglass opacities in the right midlung in the lower lung burr along with some limited fibrotic changes involving the lingular segment and in the lung bases. Doppler of the lower extremity was negative. The patient is currently having some minimal troponin leak disease with this acute pulmonary embolism. The troponins are 0.04 0.05 and 0.07 respectively. Her coagulation profile was normal. He was placed on IV heparin. Heparin level came back supratherapeutic and the was wasn't used. He is resting comfortably right now in a chair. He is on IV heparin.. The patient is not aware of any personal history of DVT or pulmonary embolism. His family history is not known as the patient did not know his parents. No 69 since surgery. Only risk factor is the covid 19 infection that occurred back in April 2020 in addition to his relatively sedentary lifestyle. The patient is seen today 08/07/2020 in follow-up on the selective care unit. He is currently sitting up in a chair at the bedside. Awake and alert in no acute distress. Denies any worsening shortness of breath, cough or congestion. No hemoptysis. He's been afebrile. Hemodynamically stable. White count 8.6. Hemoglobin 13.0. Platelets 215. Currently on a heparin drip. Objective - Vital Signs Vital signs: Vital Signs Temp 98.3 F 08/07/20 11:16 Pulse 61 08/07/20 11:16 Resp 18 08/07/20 11:16 BP 143/67 08/07/20 11:16 Pulse Ox 97 08/07/20 11:16 Intake & Output 08/06/20 08/07/20 08/07/20 18:59 06:59 18:59 Intake Total 934.801 101.858 120 Balance 934.801 101.858 120 Weight 133.6 kg Intake: Intake, IV Titration 134.801 101.858 Amount Heparin Sod,Pork in 0.45% 134.801 101.858 NaCl 25,000 unit In 0.45 % NaCl 1 250ml.bag @ 17. 66 UNITS/KG/HR 22.99 mls/ hr IV .[id number] [facility] Rx#: [id number] Oral 800 120 Other: Voiding Method Toilet Toilet Toilet Urinal Urinal Urinal # Voids 4 1 # Bowel Movements 1 - Exam GENERAL EXAM: Alert, active, pleasant 70-year-old gentleman, on room air, comfortable in no apparent distress. HEAD: Normocephalic. EYES: Normal reaction of pupils, equal size. NOSE: Clear with pink turbinates. THROAT: No erythema or exudates. NECK: No masses, no JVD. CHEST: No chest wall deformity. LUNGS: Equal air entry with no crackles, wheeze, rhonchi or dullness. CVS: S1 and S2 normal with no audible murmur, regular rhythm. ABDOMEN: No hepatosplenomegaly, normal bowel sounds, no guarding or rigidity. SPINE: No scoliosis or deformity SKIN: No rashes CENTRAL NERVOUS SYSTEM: No focal deficits, tone is normal in all 4 extremities. EXTREMITIES: There is no peripheral edema. No clubbing, no cyanosis. P eripheral pulses are intact. - Labs CBC & Chem 7: 08/07/20 07:27 08/05/20 15:45 Labs: Abnormal Lab Results - Last 24 Hours (Table) 08/06/20 08/06/20 08/07/20 Range/Units 15:20 22:17 07:27 RBC 4.18 L (4.30-5.90) m/uL APTT 74.7 H 50.1 H (22.0-30.0) sec 08/07/20 Range/Units 07:27 RBC (4.30-5.90) m/uL APTT 48.8 H (22.0-30.0) sec Assessment and Plan Assessment: 1 Acute bilateral pulmonary embolism risk factors being coronavirus COVID19 infection that could be potentially causing the patient to be hypercoagulable up to 2 months post infection in addition to his obesity incidentally lifestyle. No other identifiable risk factors. His family history is not known. The Doppler of the lower extremity has been negative. The patient is hemody namically stable 2 Acute shortness of breath secondary to above 3 Coronavirus/COVID 19 infection back in April 2020 and the patient has recovered nicely to repeat Covid 19 testing came back negative recovered. 4 Chronic bronchial asthma, mild intermittent in nature maintained on Proventil rescue inhaler on as needed basis. 5 Morbid obesity with a previous lap band insertion of removal 6 Troponin leak could be related to pulmonary embolism, awaiting echocardiogram to evaluate the patient for any right-sided strain pattern 7 Hyperlipidemia 8 Hypertension 9 Osteoarthritis 10 Glaucoma Plan The patient was seen and evaluated by Dr. Ribeiro Transitioned to [facility] Cleared for discharge from the pulmonary standpoint Follow-up in our office in 1-2 weeks' I, the cosigning physician, performed a history & physical examination of the patient. Lungs sounds are clear. Maintaining good O2 saturations in the 90s on room air. I discussed the assessment and plan of care with my nurse practitioner, Marina Martinez. I attest to the above note as dictated by her.
--- NOTE | 2020-08-07 12:33 | ECHOF ---
Referral Reason:Elevated trop , PE MEASUREMENTS -------- HEIGHT: 165.1 cm WEIGHT: 132.4 kg BP: 148/73 RVIDd: 3.6 cm (< 3.3) IVSd: 1.9 cm (0.6 - 1.1) LVIDd: 5.9 cm (3.9 - 5.3) LVPWd: 1.8 cm (0.6 - 1.1) IVSs: 2.4 cm LVIDs: 3.9 cm LVPWs: 2.7 cm LA Diam: 4.1 cm (2.7 - 3.8) Ao Diam: 3.8 cm (2.0 - 3.7) AV Cusp: 2.4 cm (1.5 - 2.6) MV EXCURSION: 18.134 mm (> 18.000) MV EF SLOPE: 84 mm/s (70 - 150) EPSS: 0.8 cm MV E Joao: 0.94 m/s MV DecT: 270 ms MV A Joao: 0.72 m/s MV E/A Ratio: 1.31 RAP: 15.00 mmHg RVSP: 55.74 mmHg FINDINGS -------- This was a technically difficult study with suboptimal views. The left ventricular size is normal. There is severe concentric left ventricular hypertrophy. Ove rall left ventricular systolic function is low-normal with, an EF between 50 - 55 %. The right ventricle is mildly enlarged. The left atrium is mildly dilated. The right atrium is normal in size. Interatrial and interventricular septum intact. The aortic valve is trileaflet, and appears structurally normal. No aortic stenosis or regurgitation. Mild mitral annular calcification present. Mild mitral regurgitation is present. Mild tricuspid regurgitation present. There is moderate to severe pulmonary hypertension. The rig ht ventricular systolic pressure, as measured by Doppler, is 55.74mmHg. Trace/mild (physiologic) pulmonic regurgitation. The aortic root is dilated measuring 3.8cm. The inferior vena cava is dilated with poor inspiratory collapse which is consistent with estimated r ight atrial pressure of 15 mmHg. There is no pericardial effusion. CONCLUSIONS -------- 1. The left ventricular size is normal. 2. There is severe concentric left ventricular hypertrophy. 3. Overall left ventricular systolic function is low-normal with, an EF between 50 - 55 %. 4. The right ventricle is mildly enlarged. 5. The left atrium is mildly dilated. 6. Mild mitral annular calcification present. 7. Mild mitral regurgitation is present. 8. Mild tricuspid regurgitation present. 9. There is moderate to severe pulmonary hypertension. 10. The right ventricular systolic pressure, as measured by Doppler, is 55.74mmHg. 11. Trace/mild (physiologic) pulmonic regurgitation. 12. The aortic root is dilated measuring 3.8cm. 13. The inferior vena cava is dilated with poor inspiratory collapse which is consistent with estimat ed right atrial pressure of 15 mmHg. 14. There is no pericardial effusion. SALVAGER HELPER: Zo Snow RDCS
--- NOTE | 2020-08-18 11:24 | P.PN ---
Subjective Progress Note Date: 08/06/20 Principal diagnosis: Acute pulmonary embolism involving bilateral upper lung burr likely due to recent COVID-19 infection. Patient is a 70-year-old male with a known history of hypertension, hyperlipidemia, osteoarthritis, asthma and recent history of COVID-19 infection diagnosed on number 2019 and was in the hospital for 5 days. Patient states that he has been having shortness of breath and feeling tired for the past few weeks. He gets short of breath while shopping and has to go to go back to his car to rest for some time. Denied any leg swelling. Denied chest pain. Patient states that he always leg swelling left greater than right. Patient follows with Dr. Smith in the clinic. Today he went to the clinic and was found to be hypoxic and short of breath. Patient was referred to ER for CT angiogram of the chest. CT angio of the chest showed there appears to be pulmonary emboli within the upper lung burr bilaterally. Scattered mild lower lobe and pulmonary fibrosis. Mild pulmonary hypertension in the present. EKG showed sinus rhythm with premature use atrial complexes. Laboratory data showed WBC 8.7, hemoglobin 13.0 and platelets 200 Sodium 139 potassium 3.8 chloride 105 BUN 16 and creatinine 0.75 Troponin 0 0.040, 0.056 and proBNP level is 153 COVID-19 PCR not detected. 08/06/2020 Patient is currently resting in the bed comfortably. Patient states that his shortness of breath is better today. Able to ambulate to the bathroom with mi nimal exertional dyspnea. No complaints of nausea or vomiting. No chest pain or tightness. Patient has been afebrile. Continue current management with heparin drip and oxygen supplementation has seen the patient. Current medications reviewed. Objective - Vital Signs Vital signs: Vital Signs Temp 98.4 F 08/06/20 19:37 Pulse 66 08/06/20 19:39 Resp 17 08/06/20 19:39 BP 158/72 08/06/20 19:37 Pulse Ox 98 08/06/20 19:37 Intake & Output 08/06/20 08/06/20 08/07/20 06:59 18:59 06:59 Intake Total 260.000 934.801 Balance 260.000 934.801 Weight 132.6 kg Intake: IV 10 0.9 10 Intake, IV Titration 250.000 134.801 Amount Heparin Sod,Pork in 0.45% 250.000 134.801 NaCl 25,000 unit In 0.45 % NaCl 1 250ml.bag @ 17. 66 UNITS/KG/HR 22.99 mls/ hr IV .[id number] COUNTS INCLUDE 234 BEDS AT [facility] Rx#: [id number] Oral 800 Other: Voiding Method Toilet Toilet Toilet Urinal Urinal Urinal # Voids 1 4 1 # Bowel Movements 1 - Exam PHYSICAL EXAMINATION: Patient is lying in the bed comfortably, no acute distress, awake alert and oriented.. HEENT: Normocephalic. Neck is supple. Pupils reactive. Nostrils clear. Oral cavity is moist. Ears reveal no drainage. Neck reveals no JVD, carotid bruits, or thyromegaly. CHEST EXAMINATION: Trachea is central. Symmetrical expansion. Lung burr clear to auscultation and percussion. CARDIAC: Normal S1, S2 with no gallops. No murmurs ABDOMEN: Soft. Bowel sounds normal. No organomegaly. No abdominal bruits. Extremities: 2+ edema. No clubbing or cyanosis Neurologically awake, alert, oriented x3 with well-coordinated movements. No focal deficits noted Skin: No rash or skin lesions. Psychiatric: Coperative. Nonsuicidal Musculoskeletal: No joint swelling or deformity. Normal range of motion. - Labs CBC & Chem 7: 08/07/20 07:27 08/05/20 15:45 Labs: Abnormal Lab Results - Last 24 Hours (Table) 08/05/20 08/05/20 08/06/20 Range/Units 23:00 23:00 06:51 RBC 3.95 L (4.30-5.90) m/uL Hgb 12.6 L (13.0-17.5) gm/dL Hct 37.8 L (39.0-53.0) % APTT >200.0 H* (22.0-30.0) sec Troponin I 0.078 H* (0.000-0.034) ng/mL 08/06/20 08/06/20 Range/Units 06:51 15:20 RBC (4.30-5.90) m/uL Hgb (13.0-17.5) gm/dL Hct (39.0-53.0) % APTT 123.1 H* 74.7 H (22.0-30.0) sec Troponin I (0.000-0.034) ng/mL Assessment and Plan Assessment: Acute pulmonary embolism involving bilateral upper lung burr likely due to recent COVID-19 infection. Shortness of breath and hypoxia secondary to above Mildly elevated troponin level Hypertension Hyperlipidemia Osteoarthritis Bilateral glaucoma and cataracts History of lap band surgery and removal. No prior history of smoking DVT prophylaxis patient is already on heparin drip Plan: Patient will be continued on oxygen supplementation and heparin drip was started. Patient will be continued heparin drip for another 24 hours and will initiate oral anticoagulation. Pulmonary has seen the patient. 2D echocardiogram was ordered. Continue with current management. Continue with home medications and follow-up H&H. further recommendations based on the clinical course. Time with Patient: Greater than 30
--- NOTE | 2020-08-18 11:28 | P.DS ---
Providers Date of admission: 08/05/20 17:24 Expected date of discharge: 08/07/20 Attending physician: Dexter Ayala Consults: 08/05/20 22:07 Consult Physician Routine Consulting Provider: Carson Ribeiro Consult Reason/Comments: b/l PE Do you want consulting provider notified?: Yes, Notify in am Primary care physician: Zane Barlow Hospital Course: Discharge diagnosis Acute pulmonary embolism involving bilateral upper lung burr likely due to recent COVID-19 infection. Shortness of breath and hypoxia secondary to above Mildly elevated troponin level Hypertension Hyperlipidemia Osteoarthritis Bilateral glaucoma and cataracts History of lap band surgery and removal. No prior history of smoking DVT prophylaxis patient is already on heparin drip Hospital course Patient is a 70-year-old male with a known history of hypertension, hyperlipidemia, osteoarthritis, asthma and recent history of COVID-19 infection diagnosed on 2019 and was in the hospital for 5 days. Patient states that he has been having shortness of breath and feeling tired for the past few weeks. He gets short of breath while shopping and has to go to go back to his car to rest for some time. Denied any leg swelling. Denied chest pain. Patient states that he always leg swelling left greater than right. Patient follows with Dr. Smith in the clinic. Today he went to the clinic and was found to be hypoxic and short of breath. Patient was referred to ER for CT angiogram of the chest. CT angio of the chest showed there appears to be pulmonary emboli within the upper lung burr bilaterally. Scattered mild lower lobe and pulmonary fibrosis. Mild pulmonary hypertension in the present. EKG showed sinus rhythm with premature use atrial complexes. Laboratory data showed WBC 8.7, hemoglobin 13.0 and platelets 200 Sodium 139 potassium 3.8 chloride 105 BUN 16 and creatinine 0.75 Troponin 0 0.040, 0.056 and proBNP level is 153 COVID-19 PCR not detected. 08/06/2020 Patient is currently resting in the bed comfortably. Patient states that his shortness of breath is better today. Able to ambulate to the bathroom with minimal exertional dyspnea. No complaints of nausea or vomiting. No chest pain or tightness. Patient has been afebrile. Continue current management with heparin drip and oxygen supplementation has seen the patient. 08/07/2020 Patient is currently sitting up in the chair at bedside. Recommend to monitor x3. No complaints of chest pain. Shortness of breath is almost resolved and is at baseline. No complaints of cough or sputum production. Heparin drip has been discontinued and patient was started rivaroxaban. Patient was prescribed with starter pack. Will need anticoagulation for the next 3 to 6 months. R recommends to follow-up with pulmonary as an outpatient.Patient is currently saturating well room air. PHYSICAL EXAMINATION: Patient is lying in the bed comfortably, no acute distress, awake alert and oriented.. HEENT: Normocephalic. Neck is supple. Pupils reactive. Nostrils clear. Oral cavity is moist. Ears reveal no drainage. Neck reveals no JVD, carotid bruits, or thyromegaly. CHEST EXAMINATION: Trachea is central. Symmetrical expansion. Lung burr clear to auscultation and percussion. CARDIAC: Normal S1, S2 with no gallops. No murmurs ABDOMEN: Soft. Bowel sounds normal. No organomegaly. No abdominal bruits. Extremities: 2+ edema. No clubbing or cyanosis Neurologically awake, alert, oriented x3 with well-coordinated movements. No focal deficits noted Skin: No rash or skin lesions. Psychiatric: Coperative. Nonsuicidal Musculoskeletal: No joint swelling or deformity. Normal range of motion. Vital Signs Temp 98.3 F 08/07/20 11:16 Pulse 61 08/07/20 11:16 Resp 18 08/07/20 11:16 BP 143/67 08/07/20 11:16 Pulse Ox 97 08/07/20 11:16 Intake & Output 08/06/20 08/07/20 08/07/20 18:59 06:59 18:59 Intake Total 934.801 101.858 120 Balance 934.801 101.858 120 Weight 133.6 kg Intake: Intake, IV Titration 134.801 101.858 Amount Heparin Sod,Pork in 0.45% 134.801 101.858 NaCl 25,000 unit In 0.45 % NaCl 1 250ml.bag @ 17. 66 UNITS/KG/HR 22.99 mls/ hr IV .[id number] [facility] Rx#: [id number] Oral 800 120 Other: Voiding Method Toilet Toilet Toilet Urinal Urinal Urinal # Voids 4 1 # Bowel Movements 1 Patient Condition at Discharge: Fair Plan - Discharge Summary Discharge Rx Participant: No New Discharge Prescriptions: New Rivaroxaban [Xarelto Starter Pack] 0 mg PO DIRECTED 30 Days #1 pack Continue Albuterol Sulfate [Proair Hfa] 2 puff INHALATION RT-Q6H PRN PRN Reason: Shortness Of Breath Cyanocobalamin [Vitamin B-12] 500 mcg PO DAILY traMADol HCL [Ultram] 50 - 100 mg PO TID PRN PRN Reason: Pain hydroCHLOROthiazide [Hydrodiuril] 25 mg PO DAILY SILVER sulfADIAZINE Cream [Silvadene 1% Cream] 1 applic TOPICAL BID amLODIPine [Norvasc] 5 mg PO DAILY Brinzolamide [Azopt 1% Ophth Susp] 1 drop BOTH EYES BID Atorvastatin [Lipitor] 10 mg PO HS Travoprost 1 drop BOTH EYES HS Ascorbic Acid [Vitamin C] 500 mg PO DAILY Cholecalciferol [Vitamin D3 (25 Mcg = 1000 Iu)] 25 mcg PO DAILY Aspirin EC [Ecotrin Low Dose] 81 mg PO DAILY Ferrous Sulfate [Iron (65 MG Elemental)] 325 mg PO DAILY Discharge Medication List Albuterol Sulfate [Proair Hfa] 2 puff INHALATION RT-Q6H PRN 04/04/15 [History] Cyanocobalamin [Vitamin B-12] 500 mcg PO DAILY 06/08/15 [History] traMADol HCL [Ultram] 50 - 100 mg PO TID PRN 03/06/19 [History] Ascorbic Acid [Vitamin C] 500 mg PO DAILY 08/05/20 [History] Aspirin EC [Ecotrin Low Dose] 81 mg PO DAILY 08/05/20 [History] Atorvastatin [Lipitor] 10 mg PO HS 08/05/20 [History] Brinzolamide [Azopt 1% Ophth Susp] 1 drop BOTH EYES BID 08/05/20 [History] Cholecalciferol [Vitamin D3 (25 Mcg = 1000 Iu)] 25 mcg PO DAILY 08/05/20 [History] Ferrous Sulfate [Iron (65 MG Elemental)] 325 mg PO DAILY 08/05/20 [History] SILVER sulfADIAZINE Cream [Silvadene 1% Cream] 1 applic TOPICAL BID 08/05/20 [History] Travoprost 1 drop BOTH EYES HS 08/05/20 [History] amLODIPine [Norvasc] 5 mg PO DAILY 08/05/20 [History] hydroCHLOROthiazide [Hydrodiuril] 25 mg PO DAILY 08/05/20 [History] Rivaroxaban [Xarelto Starter Pack] 0 mg PO DIRECTED 30 Days #1 pack 08/07/20 [Rx] Follow up Appointment(s)/Referral(s): Carson Ribeiro MD [STAFF PHYSICIAN] - 1 Week (please call to make follow-up appt.) Yen Degroot MD [Primary Care Provider] - 1-2 days (please call to make follow-up appt.) Patient Instructions/Handouts: Rivaroxaban (By mouth), Pulmonary Embolism (DC), Blood Thinners (DC) Discharge Disposition: HOME SELF-CARE
== END 2020-08-07 14:44 | disposition home or self-care (01) | DRG 176 ==
LOC: EC 15:25 → 3SCARD 17:24
PROVIDERS: ADMIT Internal Medicine; ATTEND Internal Medicine
DX: I26.99 Other pulmonary embolism without acute cor pulmonale (principal); E66.01 Morbid (severe) obesity due to excess calories; E78.5 Hyperlipidemia, unspecified; H26.9 Unspecified cataract; H40.9 Unspecified glaucoma; I10 Essential (primary) hypertension; I27.20 Pulmonary hypertension, unspecified; J45.20 Mild intermittent asthma, uncomplicated; J84.10 Pulmonary fibrosis, unspecified; M19.90 Unspecified osteoarthritis, unspecified site; R09.02 Hypoxemia; Z98.42 Cataract extraction status, left eye; Z98.41 Cataract extraction status, right eye; Z79.82 Long term (current) use of aspirin; Z79.899 Other long term (current) drug therapy; Z86.16 Personal history of COVID-19; Z98.84 Bariatric surgery status; R79.89 Other specified abnormal findings of blood chemistry; Z20.822 Contact with and (suspected) exposure to COVID-19; Z88.6 Allergy status to analgesic agent; Z88.5 Allergy status to narcotic agent; Z88.0 Allergy status to penicillin; Z88.8 Allergy status to other drugs, medicaments and biological substances; Z90.49 Acquired absence of other specified parts of digestive tract; Z72.3 Lack of physical exercise
CPT/HCPCS: 36415; 71275; 80053; 82565; 83735; 83880; 84484; 84520; 85025; 85610; 85730; 87635; 93005; 93306; 93970; 94640; 94760; 96365; 96366; 96376; 99291

== ENCOUNTER → 2020-08-05 | Outpatient (CLI) | payer MEDICARE ==
[2020-08-05 12:59] LABS: African American GFR (CKD) >90 (>60 ml/min/1.73 sqM); Blood Urea Nitrogen 16 mg/dL (9-20); Non-African American GFR(CKD) 89 (>60 ml/min/1.73 sqM)
--- NOTE | 2020-08-05 13:51 | CT ---
CT CHEST FOR PULMONARY EMBOLISM. EXAMINATION TYPE: CT angio chest DATE OF EXAM: 08/05/2020 INDICATION: Shortness of breath since COVID in Nov CT DLP: 928.6 mGycm, Automated exposure control for dose reduction was used. CONTRAST: Patient injected with 100, 12 wasted mL of Isovue 370. COMPARISON: None TECHNIQUE: CT of the chest is performed on a spiral scan at 2 mm thick sections. Study is performed with intravenous contrast timed for evaluation for pulmonary embolism. This will limit additional po rtions of the evaluation. 3-D MIP images reconstructed by the technologist are reviewed on the compu ter in the coronal and sagittal planes. FINDINGS: Right upper lobe pulmonary emboli are evident. Left upper lobe pulmonary embolus is suspected. Some l ingular pulmonary artery thrombus be present. No mediastinal or hilar adenopathy enlarged by CT criteria is evident. The ascending aorta diameter at the level of the main pulmonary artery is 3.5 cm. The main pulmonary artery diameter at the bifur cation is 3.6 cm. Correlate for early pulmonary hypertension. Coronary artery calcification is noted. Minimal reflux into the proximal inferior vena cava may be present. Some scattered groundglass opacities through the right mid and lower lung field. Some pulmonary fibro sis type changes are at the lingular bilateral posterior lung bases. Limited CT section through the upper abdomen are unremarkable. IMPRESSIONS: 1. There appear to be pulmonary emboli within the upper lung burr bilaterally. 2. Scattered mild lower lobe and pulmonary fibrosis. 3. Mild pulmonary hypertension may be present
== END ==
LOC: RADCTMAIN 12:15
PROVIDERS: ATTEND Internal Medicine
DX: R06.02 Shortness of breath (principal); I26.99 Other pulmonary embolism without acute cor pulmonale; J84.10 Pulmonary fibrosis, unspecified; Z88.0 Allergy status to penicillin
CPT/HCPCS: 82565; 84520; 71275; 36415; Q9967

== ENCOUNTER 2020-09-24 22:14 | Observation (INO) | payer MEDICARE ==
[2020-09-24 23:52] LABS: Basophils # (A) 0.1 k/uL (0-0.2); Basophils % (A) 1 %; Eosinophils # (A) 0.4 k/uL (0-0.7); Eosinophils % (A) 5 %; HCT 34.2 % (39.0-53.0); HGB 12.1 gm/dL (13.0-17.5); Lymphocytes % (A) 24 %; MCH 32.6 pg (25.0-35.0); MCHC 35.2 g/dL (31.0-37.0); MCV 92.4 fL (80.0-100.0); Mean Platelet Volume 7.4; Monocytes # (A) 0.5 k/uL (0-1.0); Monocytes % (A) 6 %; Neutrophils # (A) 5.2 k/uL (1.3-7.7); Neutrophils % (A) 63 %; Platelet Count 220 k/uL (150-450); Poikilocytosis Slight; WBC 8.3 k/uL (3.8-10.6)
--- NOTE | 2020-09-25 | XR ---
EXAMINATION TYPE: XR chest 2V DATE OF EXAM: 09/24/2020 COMPARISON: 08/05/2020 HISTORY: Syncope TECHNIQUE: 2 views FINDINGS: There is some mild linear density at the left lung base. There is no heart failure nor conf luent pneumonic infiltrate. There are no hilar masses. There are chest leads. Heart size is normal. IMPRESSION: There is some mild linear infiltrate and atelectasis left lung base without change. Karine l heart.
[2020-09-25 00:04] LABS: INR 1.2 (<1.2); Partial Thromboplastin Time 29.7 sec (22.0-30.0); Prothrombin Time 12.2 sec (9.0-12.0)
[2020-09-25 00:10] LABS: ALT 20 U/L (4-49); AST 36 U/L (17-59); African American GFR (CKD) >90 (>60 ml/min/1.73 sqM); Albumin 3.6 g/dL (3.5-5.0); Alkaline Phosphatase 62 U/L (38-126); Anion Gap 6 mmol/L; Blood Urea Nitrogen 15 mg/dL (9-20); Calcium 9.2 mg/dL (8.4-10.2); Carbon Dioxide 34 mmol/L (22-30); Chloride 96 mmol/L (98-107); Glucose 156 mg/dL (74-99); Magnesium 2.1 mg/dL (1.6-2.3); Non-African American GFR(CKD) >90 (>60 ml/min/1.73 sqM); Sodium 136 mmol/L (137-145); Total Bilirubin 0.7 mg/dL (0.2-1.3); Total Protein 6.2 g/dL (6.3-8.2)
[2020-09-25] MEDS ORDERED: POTASSIUM CHLORIDE ER 20 MEQ TAB.ER PO STA (00:34)
--- NOTE | 2020-09-25 00:46 | CT ---
EXAMINATION TYPE: CT chest angio for PE DATE OF EXAM: 09/25/2020 COMPARISON: 08/05/2020 HISTORY: SOB. Hx of PE. CT DLP: 696.8 mGycm Automated exposure control for dose reduction was used. CONTRAST: Performed with IV Contrast, patient injected with 100 mL of Isovue 370. Images obtained from the thoracic inlet to the diaphragm with IV contrast and 3-D post processing. There is mild interstitial infiltrates in the posterior lung bases bilaterally. There is no evidence of a pulmonary mass. There is no mediastinal adenopathy. Thoracic aorta is intact. There is no aneury sm or dissection. There is some coronary artery calcification. Heart is slightly enlarged. There is n o pericardial effusion. I see no evidence of filling defect in the pulmonary arteries. There are no hilar masses. There is no mediastinal adenopathy. There is spurring in the thoracic spin e. IMPRESSION: No evidence of pulmonary embolism. I do not see evidence of emboli in the upper lobe pulmonary arteri es suggested by the last exam. Interstitial infiltrates at the lung bases consistent with pulmonary f ibrosis. This appears not significantly different than last exam.
[2020-09-25 00:47] LABS: Appearance,Urine Clear (Clear); Bilirubin,Urine Negative (Negative); Blood,Urine Negative (Negative); Color,Urine Light Yellow; Glucose,Urine (UA) Negative (Negative); Ketones,Urine Negative (Negative); Leukocyte Esterase,Urine Negative (Negative); Nitrite,Urine Negative (Negative); Protein,Urine Negative (Negative); Specific Gravity,Urine 1.006 (1.001-1.035); Urobilinogen,Urine <2.0 mg/dL (<2.0)
[2020-09-25] MEDS ORDERED: NITROGLYCERIN SL TABS 0.4 MG TAB SUBLINGUAL PRN (00:59)
[2020-09-25] MEDS ORDERED: ASPIRIN 81 MG PO STA (01:00)
--- NOTE | 2020-09-25 01:01 | ED ---
General Adult HPI - General Chief complaint: Dizziness Stated complaint: Dizziness, HX Blood Clots Time Seen by Provider: 09/24/20 22:37 Source: patient Mode of arrival: ambulatory Limitations: no limitations - History of Present Illness Initial comments: 70-year-old male with history of recent pulmonary embolism, hypertension, dyslipidemia presenting to the emergency department today for chief complaint of presyncope. Patient states he was on his usual evening walk when he felt like he was going to pass out he states he became very lightheaded he denies diaphoresis chest pressure or significant shortness of breath he denies any recent leg swelling calf tenderness and states he is compliant with his anticoagulation therapy. Patient denies any pleuritic chest pain but states his entire family is now positive for Covid 19. She denies any bloody or black stools He denies fevers, chills, general malaise or cough. Patient was concerned about the light headed episode that maybe the blood clot was back. Upon arrival patietn appears nontoxic in no acute distress. - Related Data Home Medications Medication Instructions Recorded Confirmed Albuterol Sulfate [Proair Hfa] 2 puff INHALATION RT-Q6H PRN 04/04/15 09/24/20 Cyanocobalamin [Vitamin B-12] 500 mcg PO DAILY 06/08/15 09/24/20 traMADol HCL [Ultram] 50 mg PO TID PRN 03/06/19 09/24/20 Ascorbic Acid [Vitamin C] 500 mg PO DAILY 08/05/20 09/24/20 Aspirin EC [Ecotrin Low Dose] 81 mg PO DAILY 08/05/20 09/24/20 Atorvastatin [Lipitor] 10 mg PO HS 08/05/20 09/24/20 Brinzolamide [Azopt 1% Ophth Susp] 1 drop BOTH EYES BID 08/05/20 09/24/20 Cholecalciferol [Vitamin D3 (25 25 mcg PO DAILY 08/05/20 09/24/20 Mcg = 1000 Iu)] Ferrous Sulfate [Iron (65 MG 325 mg PO DAILY 08/05/20 09/24/20 Elemental)] SILVER sulfADIAZINE Cream 1 applic TOPICAL BID PRN 08/05/20 09/24/20 [Silvadene 1% Cream] Travoprost 1 drop BOTH EYES HS 08/05/20 09/24/20 amLODIPine [Norvasc] 5 mg PO DAILY 08/05/20 09/24/20 hydroCHLOROthiazide [Hydrodiuril] 25 mg PO DAILY 08/05/20 09/24/20 Pregabalin [Lyrica] 150 mg PO BID 09/24/20 09/24/20 Rivaroxaban [Xarelto] 20 mg PO DAILY 09/24/20 09/24/20 Allergies Allergy/AdvReac Type Severity Reaction Status Date / Time acetaminophen [From Vicodin] Allergy Rash/Hives Verified 09/24/20 23:23 hydrocodone bitartrate Allergy Rash/Hives Verified 09/24/20 23:23 [From Vicodin] Penicillins Allergy Rash/Hives Verified 09/24/20 23:23 cortisone AdvReac Abdominal Verified 09/24/20 23:23 Pain NSAIDS (Non-Steroidal AdvReac Abdominal Verified 09/24/20 23:23 Anti-Inflamma Pain prednisone AdvReac Abdominal Verified 09/24/20 23:23 Pain Review of Systems ROS Statement: Those systems with pertinent positive or pertinent negative responses have been documented in the HPI. ROS Other: All systems not noted in ROS Statement are negative. Past Medical History Past Medical History: Asthma, Eye Disorder, Hyperlipidemia, Hypertension, Oste oarthritis (OA), Pulmonary Embolus (PE) Additional Past Medical History / Comment(s): COVID 19 infection, BILAT GLAUCOMA AND CATARACTS, obesity History of Any Multi-Drug Resistant Organisms: None Reported Past Surgical History: Bariatric Surgery, Cholecystectomy, Hernia Repair, Orthopedic Surgery, Tonsillectomy Additional Past Surgical History / Comment(s): ANAL FISSURE REMOVED. RT ROTATOR CUFF REPAIR. LAP BAND IN AND THEN REMOVED. WARTS REMOVED FROM LOWER EXTREMIES. COLONOSCOPY. SURGERY BILAT EYES FOR CATARACTS AND GLAUCOMA. EGD. RT KNEE SCOPE Past Anesthesia/Blood Transfusion Reactions: No Reported Reaction Additional Past Anesthesia/Blood Transfusion Reaction / Comment(s): Pt has never received blood. Past Psychological History: No Psychological Hx Reported Smoking Status: Never smoker Past Alcohol Use History: None Reported Past Drug Use History: None Reported - Past Family History Mother Family Medical History: Unable to Obtain Additional Family Medical History / Comment(s): FAMILY HX UNKNOWN PT IN FOSTER CARE CHILD Father History Unknown: Yes Family Medical History: Unable to Obtain Additional Family Medical History / Comment(s): Pt raised in foster care. General Exam - General Exam Comments Initial Comments: General: The patient is awake and alert, in no distress, and does not appear acutely ill. No noted diaphoresis Eye: Pupils are equal, round and reactive to light, extra-ocular movements are intact. No nystagmus. There is normal conjunctiva bilaterally. No signs of icterus. Ears, nose, mouth and throat: There are moist mucous membranes and no oral lesions. Neck: The neck is supple, there is no tenderness or JVD. Cardiovascular: There is a regular rate and rhythm. No murmur, rub or gallop is appreciated. Respiratory: Lungs are clear to auscultation, respirations are non-labored, breath sounds are equal. No wheezes, stridor, rales, or rhonchi. Gastrointestinal: Soft, non-distended, non-tender abdomen without masses or organomegaly noted. There is no rebound or guarding present no pulsatile masses. Musculoskeletal: Normal ROM, no tenderness. Strength 5/5. Sensation intact. Radial and DP pulses equal bilaterally 2+. Neurological: A&O x 3. CN II-XII intact, There are no obvious motor or sensory deficits. Coordination appears grossly intact. Speech is normal. Skin: Skin is warm and dry and no rashes or lesions are noted. No pitting edema, unilateral swelling or calf pain. Psychiatric: Cooperative, appropriate mood & affect, normal judgment. Limitations: no limitations Course Vital Signs 09/24/20 09/24/20 22:18 23:00 Temperature 98.5 F Pulse Rate 64 55 L Respiratory 16 18 Rate Blood Pressure 123/47 O2 Sat by Pulse 95 100 Oximetry Medical Decision Making - Medical Decision Making 70-year-old male presenting for chief complaint of presyncope. Labs revealed a mildly elevated troponin which upon history appears the patient chronically has this. Patient's BMP within acceptable limits. He denies shortness of breath. CT no evidence of pulmonary embolism. EKG no ST elevation. Patient denies any chest pain or pressure. Given patient's age, the elevation of troponin and history of presyncope at this time we will admit patient for cardiology evaluation. Patient is agreeable to this care plan admission. Patient did have mild hypokalemia which was replaced orally. I discussed the case with attending provider who is agreeable to care plan and admission. cardiology on consultation. - Lab Data Result diagrams: 09/24/20 23:31 09/24/20 23:31 Lab Results 09/24/20 09/24/20 09/24/20 Range/Units 23:31 23:31 23:31 WBC 8.3 (3.8-10.6) k/uL RBC 3.70 L (4.30-5.90) m/uL Hgb 12.1 L (13.0-17.5) gm/dL Hct 34.2 L (39.0-53.0) % MCV 92.4 (80.0-100.0) fL MCH 32.6 (25.0-35.0) pg MCHC 35.2 (31.0-37.0) g/dL RDW 15.0 (11.5-15.5) % Plt Count 220 (150-450) k/uL MPV 7.4 Neutrophils % 63 % Lymphocytes % 24 % Monocytes % 6 % Eosinophils % 5 % Basophils % 1 % Neutrophils # 5.2 (1.3-7.7) k/uL Lymphocytes # 2.0 (1.0-4.8) k/uL Monocytes # 0.5 (0-1.0) k/uL Eosinophils # 0.4 (0-0.7) k/uL Basophils # 0.1 (0-0.2) k/uL Poikilocytosis Slight PT 12.2 H (9.0-12.0) sec INR 1.2 H (<1.2) APTT 29.7 (22.0-30.0) sec Sodium 136 L (137-145) mmol/L Potassium 3.0 L (3.5-5.1) mmol/L Chloride 96 L (98-107) mmol/L Carbon Dioxide 34 H (22-30) mmol/L Anion Gap 6 mmol/L BUN 15 (9-20) mg/dL Creatinine 0.79 (0.66-1.25) mg/dL Est GFR (CKD-EPI)AfAm >90 (>60 ml/min/1.73 sqM) Est GFR (CKD-EPI)NonAf >90 (>60 ml/min/1.73 sqM) Glucose 156 H (74-99) mg/dL Calcium 9.2 (8.4-10.2) mg/dL Magnesium 2.1 (1.6-2.3) mg/dL Total Bilirubin 0.7 (0.2-1.3) mg/dL AST 36 (17-59) U/L ALT 20 (4-49) U/L Alkaline Phosphatase 62 (38-126) U/L Troponin I (0.000-0.034) ng/mL NT-Pro-B Natriuret Pep pg/mL Total Protein 6.2 L (6.3-8.2) g/dL Albumin 3.6 (3.5-5.0) g/dL Urine Color Urine Appearance (Clear) Urine pH (5.0-8.0) Ur Specific [place] (1.001-1.035) Urine Protein (Negative) Urine Glucose (UA) (Negative) Urine Ketones (Negative) Urine Blood (Negative) Urine Nitrite (Negative) Urine Bilirubin (Negative) Urine Urobilinogen (<2.0) mg/dL Ur Leukocyte Esterase (Negative) Coronavirus (PCR) (Not Detectd) 09/24/20 09/24/20 09/24/20 Range/Units 23:31 23:31 23:31 WBC (3.8-10.6) k/uL RBC (4.30-5.90) m/uL Hgb (13.0-17.5) gm/dL Hct (39.0-53.0) % MCV (80.0-100.0) fL MCH (25.0-35.0) pg MCHC (31.0-37.0) g/dL RDW (11.5-15.5) % Plt Count (150-450) k/uL MPV Neutrophils % % Lymphocytes % % Monocytes % % Eosinophils % % Basophils % % Neutrophils # (1.3-7.7) k/uL Lymphocytes # (1.0-4.8) k/uL Monocytes # (0-1.0) k/uL Eosinophils # (0-0.7) k/uL Basophils # (0-0.2) k/uL Poikilocytosis PT (9.0-12.0) sec INR (<1.2) APTT (22.0-30.0) sec Sodium (137-145) mmol/L Potassium (3.5-5.1) mmol/L Chloride (98-107) mmol/L Carbon Dioxide (22-30) mmol/L Anion Gap mmol/L BUN (9-20) mg/dL Creatinine (0.66-1.25) mg/dL Est GFR (CKD-EPI)AfAm (>60 ml/min/1.73 sqM) Est GFR (CKD-EPI)NonAf (>60 ml/min/1.73 sqM) Glucose (74-99) mg/dL Calcium (8.4-10.2) mg/dL Magnesium (1.6-2.3) mg/dL Total Bilirubin (0.2-1.3) mg/dL AST (17-59) U/L ALT (4-49) U/L Alkaline Phosphatase (38-126) U/L Troponin I 0.048 H* (0.000-0.034) ng/mL NT-Pro-B Natriuret Pep 81 pg/mL Total Protein (6.3-8.2) g/dL Albumin (3.5-5.0) g/dL Urine Color Urine Appearance (Clear) Urine pH (5.0-8.0) Ur Specific [place] (1.001-1.035) Urine Protein (Negative) Urine Glucose (UA) (Negative) Urine Ketones (Negative) Urine Blood (Negative) Urine Nitrite (Negative) Urine Bilirubin (Negative) Urine Urobilinogen (<2.0) mg/dL Ur Leukocyte Esterase (Negative) Coronavirus (PCR) Not Detected (Not Detectd) 09/25/20 Range/Units 00:41 WBC (3.8-10.6) k/uL RBC (4.30-5.90) m/uL Hgb (13.0-17.5) gm/dL Hct (39.0-53.0) % MCV (80.0-100.0) fL MCH (25.0-35.0) pg MCHC (31.0-37.0) g/dL RDW (11.5-15.5) % Plt Count (150-450) k/uL MPV Neutrophils % % Lymphocytes % % Monocytes % % Eosinophils % % Basophils % % Neutrophils # (1.3-7.7) k/uL Lymphocytes # (1.0-4.8) k/uL Monocytes # (0-1.0) k/uL Eosinophils # (0-0.7) k/uL Basophils # (0-0.2) k/uL Poikilocytosis PT (9.0-12.0) sec INR (<1.2) APTT (22.0-30.0) sec Sodium (137-145) mmol/L Potassium (3.5-5.1) mmol/L Chloride (98-107) mmol/L Carbon Dioxide (22-30) mmol/L Anion Gap mmol/L BUN (9-20) mg/dL Creatinine (0.66-1.25) mg/dL Est GFR (CKD-EPI)AfAm (>60 ml/min/1.73 sqM) Est GFR (CKD-EPI)NonAf (>60 ml/min/1.73 sqM) Glucose (74-99) mg/dL Calcium (8.4-10.2) mg/dL Magnesium (1.6-2.3) mg/dL Total Bilirubin (0.2-1.3) mg/dL AST (17-59) U/L ALT (4-49) U/L Alkaline Phosphatase (38-126) U/L Troponin I (0.000-0.034) ng/mL NT-Pro-B Natriuret Pep pg/mL Total Protein (6.3-8.2) g/dL Albumin (3.5-5.0) g/dL Urine Color Light Yellow Urine Appearance Clear (Clear) Urine pH 6.0 (5.0-8.0) Ur Specific [place] 1.006 (1.001-1.035) Urine Protein Negative (Negative) Urine Glucose (UA) Negative (Negative) Urine Ketones Negative (Negative) Urine Blood Negative (Negative) Urine Nitrite Negative (Negative) Urine Bilirubin Negative (Negative) Urine Urobilinogen <2.0 (<2.0) mg/dL Ur Leukocyte Esterase Negative (Negative) Coronavirus (PCR) (Not Detectd) Disposition Clinical Impression: Pre-syncope, Elevated troponin Disposition: ADMITTED IP TO THIS [facility] Condition: Stable Is patient prescribed a controlled substance at d/c from ED?: No Referrals: Yen Degroot MD [Primary Care Provider] - 1-2 days Time of Disposition: 01:01 Decision to Admit Reason: Admit from EC Decision Date: 09/25/20 Decision Time: 01:01
[2020-09-25] MEDS ORDERED: traMADol 50 MG TAB PO PRN (09:07)
[2020-09-25] MEDS: ASPIRIN 81 MG PO SCH (12:31)
[2020-09-25] MEDS: RIVAROXABAN 20 MG TAB PO SCH (12:31)
[2020-09-25] MEDS: amLODIPine 5 MG TAB PO SCH (12:31)
[2020-09-25] MEDS: hydroCHLOROthiazide 25 MG TAB PO SCH (12:31)
[2020-09-25] MEDS: CHOLECALCIFEROL 25 MCG (1000 IU) TABLET PO SCH (12:31)
[2020-09-25] MEDS: ASCORBIC ACID 500 MG TAB PO SCH (12:31)
[2020-09-25] MEDS: CYANOCOBALAMIN 500 MCG TAB PO SCH (12:31)
[2020-09-25] MEDS: FERROUS SULFATE 325 MG TAB PO SCH (12:31)
--- NOTE | 2020-09-25 12:37 | CONS ---
CONSULTATION CHIEF COMPLAINT: Dizziness INTERVAL HISTORY: Moses is a 70-year-old gentleman with history of pulmonary embolism and hypertension who presented to the hospital complaining of dizziness and unstable gait. He underwent a troponin that is slightly elevated due to which Cardiology has been consulted. The patient did not have any episodes of chest pain or focal neurological deficits. There is no history of syncope. He underwent a CT scan of the chest here and we did not find any new pulmonary embolism. He has been tested for COVID and it was negative. His was diagnosed with COVID back in May, but states that she has improved. At the time of my evaluation this morning he is free of symptoms and dizziness has resolved. EKG shows sinus rhythm, first-degree AV block with left ventricular hypertrophy. LABS: Labs show that the hemoglobin is 12. Troponins are mildly elevated at 0.04, 0.05 and 0.05 without any definite pattern to it. Potassium was low yesterday and hopefully has been supplemented. PAST MEDICAL HISTORY: Significant for pulmonary embolism and hypertension. MEDICATIONS: Medications at home include Xarelto 20 daily, amlodipine 5 daily, Lyrica, Lipitor, HydroDIURIL, ascorbic acid, Ultram, iron. ALLERGIES: PENICILLIN, VICODIN, CORTISONE, NSAID, and PREDNISONE. FAMILY HISTORY: Negative for premature coronary artery disease. SOCIAL HISTORY: Negative for current smoking, EtOH abuse, or drug abuse. REVIEW OF SYSTEMS: HEENT is unremarkable. Cardiac as described above. Respiratory as described above. GI negative. : Negative. Allergy/immunology and skin unremarkable. MUSCULOSKELETAL: Significant for arthritis. Psychosocial negative. Endocrine, derm negative. Constitutional and oncological negative. 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 Rest of the system review is not relevant to exam. PHYSICAL EXAMINATION: VITAL SIGNS: The patient is afebrile. Heart rate is 55 beats per minute, blood pressure is 115/50, respiratory rate is 18. O2 saturation 97% on room air. There is no jugular venous distention. Chest exam reveals good air entry bilaterally. Heart exam reveals first and second heart sounds. No gallop. No murmur. No rub. Abdomen is soft. Exam of extremities did not reveal any edema. Peripheral pulses are felt. LABORATORY DATA: Hemoglobin of 12.1, platelet count is 220. Creatinine is 0.7. Tropes are in do zone. Coronavirus is negative. UA is negative. ASSESSMENT: 1. Dizziness of unclear etiology. 2. Mild troponin elevation of unclear clinical significance. The patient did not have a myocardial infarction on this admission. The patient does not have chest pain. 3. Hypertension. PLAN: Patient had a cardiac catheterization in 2014 that did not reveal significant obstructive coronary artery disease. He follows with Dr. Colón in the office from time to time, in fact has an appointment to see him tomorrow. I will obtain a limited 2D echo in the morning to look for any wall motion abnormalities and if the LV function is normal and there are no new focal wall motion abnormalities, we should be able to discharge him home and get an outpatient stress test to complete his workup. Thank you for allowing me to participate in the care of this pleasant gentleman. MMSHIRLEYL / IJN: [id number] /
[2020-09-25] MEDS: DORZOLAMIDE HCL 2% DROPS 10 ML BTL BOTH EYES SCH (14:59)
[2020-09-25] MEDS: PREGABALIN 75 MG CAP PO SCH ×2 (15:00→23:02)
[2020-09-25] MEDS: ALBUTEROL HFA INHALER INHALATION PRN (15:12)
--- NOTE | 2020-09-25 15:59 | P.HPIM ---
History of Present Illness H&P Date: 09/25/20 Chief Complaint: Dizziness 70-year-old male with history of recent pulmonary embolism, hypertension, dyslipidemia presenting to the emergency department today for chief complaint of presyncope. Patient states he was on his usual evening walk when he felt like he was going to pass out he states he became very lightheaded he denies diaphoresis chest pressure or significant shortness of breath he denies any recent leg swelling calf tenderness and states he is compliant with his anticoagulation therapy. Patient denies any pleuritic chest pain but states his entire family is now positive for Covid 19. She denies any bloody or black stools He denies fevers, chills, general malaise or cough. Patient was concerned about the light headed episode that maybe the blood clot was back. Upon arrival patietn appears nontoxic in no acute distress. Workup in ED including blood work review of system WBC of 8.3, hemoglobin of 12.1, chemical profile shows sodium 136, potassium 3.0 with glucose 156; CTA chest was done which does not reveal PE; EKG does not show any ST elevation; patient was replaced with potassium for mild hypokalemia and is admitted to the hospital for further evaluation Review of Systems REVIEW OF SYSTEMS: CONSTITUTIONAL: No fever, no malaise, no fatigue. HEENT: No recent visual problems or hearing problems. Denied any sore throat. CARDIOVASCULAR: No chest pain, orthopnea, PND, no palpitations, no syncope. PULMONARY: No shortness of breath, no cough, no hemoptysis. GASTROINTESTINAL: No diarrhea, no nausea, no vomiting, no abdominal pain. NEUROLOGICAL: No headaches, no weakness, no numbness. HEMATOLOGICAL: Denies any bleeding or petechiae. GENITOURINARY: Denies any burning micturition, frequency, or urgency. MUSCULOSKELETAL/RHEUMATOLOGICAL: Denies any joint pain, swelling, or any muscle pain. ENDOCRINE: Denies any polyuria or polydipsia. The rest of the 14-point review of systems is negative. Past Medical History Past Medical History: Asthma, Eye Disorder, Hyperlipidemia, Hypertension, Osteoarthritis (OA), Pulmonary Embolus (PE) Additional Past Medical History / Comment(s): COVID 19 infection, BILAT GLAUCOMA AND CATARACTS, obesity History of Any Multi-Drug Resistant Organisms: None Reported Past Surgical History: Bariatric Surgery, Cholecystectomy, Hernia Repair, Orthopedic Surgery, Tonsillectomy Additional Past Surgical History / Comment(s): ANAL FISSURE REMOVED. RT ROTATOR CUFF REPAIR. LAP BAND IN AND THEN REMOVED. WARTS REMOVED FROM LOWER EXTREMIES. COLONOSCOPY. SURGERY BILAT EYES FOR CATARACTS AND GLAUCOMA. EGD. RT KNEE SCOPE Past Anesthesia/Blood Transfusion Reactions: No Reported Reaction Additional Past Anesthesia/Blood Transfusion Reaction / Comment(s): Pt has never received blood. Past Psychological History: No Psychological Hx Reported Smoking Status: Never smoker Past Alcohol Use History: None Reported Past Drug Use History: None Reported - Past Family History Mother Family Medical History: Unable to Obtain Additional Family Medical History / Comment(s): FAMILY HX UNKNOWN PT IN FOSTER CARE CHILD Father History Unknown: Yes Family Medical History: Unable to Obtain Additional Family Medical History / Comment(s): Pt raised in foster care. Medications and Allergies Home Medications Medication Instructions Recorded Confirmed Type Albuterol Sulfate [Proair Hfa] 2 puff INHALATION RT-Q6H PRN 04/04/15 09/24/20 History Cyanocobalamin [Vitamin B-12] 500 mcg PO DAILY 06/08/15 09/24/20 History traMADol HCL [Ultram] 50 mg PO TID PRN 03/06/19 09/24/20 History Ascorbic Acid [Vitamin C] 500 mg PO DAILY 08/05/20 09/24/20 History Aspirin EC [Ecotrin Low Dose] 81 mg PO DAILY 08/05/20 09/24/20 History Atorvastatin [Lipitor] 10 mg PO HS 08/05/20 09/24/20 History Brinzolamide [Azopt 1% Ophth Susp] 1 drop BOTH EYES BID 08/05/20 09/24/20 History Cholecalciferol [Vitamin D3 (25 25 mcg PO DAILY 08/05/20 09/24/20 History Mcg = 1000 Iu)] Ferrous Sulfate [Iron (65 MG 325 mg PO DAILY 08/05/20 09/24/20 History Elemental)] SILVER sulfADIAZINE Cream 1 applic TOPICAL BID PRN 08/05/20 09/24/20 History [Silvadene 1% Cream] Travoprost 1 drop BOTH EYES HS 08/05/20 09/24/20 History amLODIPine [Norvasc] 5 mg PO DAILY 08/05/20 09/24/20 History hydroCHLOROthiazide [Hydrodiuril] 25 mg PO DAILY 08/05/20 09/24/20 History Pregabalin [Lyrica] 150 mg PO BID 09/24/20 09/24/20 History Rivaroxaban [Xarelto] 20 mg PO DAILY 09/24/20 09/24/20 History Allergies Allergy/AdvReac Type Severity Reaction Status Date / Time acetaminophen [From Vicodin] Allergy Rash/Hives Verified 09/24/20 23:23 hydrocodone bitartrate Allergy Rash/Hives Verified 09/24/20 23:23 [From Vicodin] Penicillins Allergy Rash/Hives Verified 09/24/20 23:23 cortisone AdvReac Abdominal Verified 09/24/20 23:23 Pain NSAIDS (Non-Steroidal AdvReac Abdominal Verified 09/24/20 23:23 Anti-Inflamma Pain prednisone AdvReac Abdominal Verified 09/24/20 23:23 Pain Physical Exam Vitals: Vital Signs Temp Pulse Resp BP Pulse Ox 09/25/20 07:59 97.7 F 55 L 18 115/55 97 09/25/20 06:00 56 L 18 09/25/20 05:00 58 L 09/25/20 04:47 97.5 F L 60 18 128/65 94 L 09/25/20 02:44 97.5 F L 56 L 18 121/70 95 09/24/20 23:00 55 L 18 100 09/24/20 22:18 98.5 F 64 16 123/47 95 Intake and Output 09/24/20 09/25/20 09/25/20 22:59 06:59 14:59 Other: Weight 122.016 kg General: The patient is awake and alert, in no distress, and does not appear acutely ill. No noted diaphoresis Eye: Pupils are equal, round and reactive to light, extra-ocular movements are intact. No nystagmus. There is normal conjunctiva bilaterally. No signs of icterus. Ears, nose, mouth and throat: There are moist mucous membranes and no oral lesions. Neck: The neck is supple, there is no tenderness or JVD. Cardiovascular: There is a regular rate and rhythm. No murmur, rub or gallop is appreciated. Respiratory: Lungs are clear to auscultation, respirations are non-labored, breath sounds are equal. No wheezes, stridor, rales, or rhonchi. Gastrointestinal: Soft, non-distended, non-tender abdomen without masses or organomegaly noted. There is no rebound or guarding present no pulsatile masses. Musculoskeletal: Normal ROM, no tenderness. Strength 5/5. Sensation intact. Radial and DP pulses equal bilaterally 2+. Neurological: A&O x 3. CN II-XII intact, There are no obvious motor or sensory deficits. Coordination appears grossly intact. Speech is normal. Skin: Skin is warm and dry and no rashes or lesions are noted. No pitting edema, unilateral swelling or calf pain. Psychiatric: Cooperative, appropriate mood & affect, normal judgment. Results CBC & Chem 7: 09/24/20 23:31 09/24/20 23:31 Labs: Abnormal Lab Results - Last 24 Hours (Table) 09/24/20 09/24/20 09/24/20 Range/Units 23:31 23:31 23:31 RBC 3.70 L (4.30-5.90) m/uL Hgb 12.1 L (13.0-17.5) gm/dL Hct 34.2 L (39.0-53.0) % PT 12.2 H (9.0-12.0) sec INR 1.2 H (<1.2) Sodium 136 L (137-145) mmol/L Potassium 3.0 L (3.5-5.1) mmol/L Chloride 96 L (98-107) mmol/L Carbon Dioxide 34 H (22-30) mmol/L Glucose 156 H (74-99) mg/dL Troponin I (0.000-0.034) ng/mL Total Protein 6.2 L (6.3-8.2) g/dL 09/24/20 09/25/20 09/25/20 Range/Units 23:31 02:48 07:37 RBC (4.30-5.90) m/uL Hgb (13.0-17.5) gm/dL Hct (39.0-53.0) % PT (9.0-12.0) sec INR (<1.2) Sodium (137-145) mmol/L Potassium (3.5-5.1) mmol/L Chloride (98-107) mmol/L Carbon Dioxide (22-30) mmol/L Glucose (74-99) mg/dL Troponin I 0.048 H* 0.059 H* 0.054 H* (0.000-0.034) ng/mL Total Protein (6.3-8.2) g/dL Assessment and Plan Assessment: 1. Dizziness; presyncope - We will admit patient to telemetry and monitor cardiac enzymes and EKG - Cardiology is consulted; patient had cardiac catheterization done in 2014 without any significant coronary artery disease; cardiology recommending a 2-D echo for evaluation for any wall motion abnormalities and left ventricular function; plan would be to discharge patient for an outpatient stress test if echocardiogram is stable - Continue with aspirin and statin therapy 2. Hypokalemia; mild - Treated in ED; we will monitor electrolytes and supplement as needed 3. Asthma; not in exacerbation; continue with home inhaler therapy 4. Hypertension; amlodipine 5 mg daily, hydrocodone Diuril 25 mg daily 5. Hyperlipidemia; Lipitor 10 mg by mouth daily at bedtime 6. History of PE; continue home dose of Xarelto 20 mg daily DVT prophylaxis; SCDs/systemic anticoagulation CODE STATUS; full code
[2020-09-25] MEDS ORDERED: ATORVASTATIN 10 MG TAB PO SCH (21:00)
[2020-09-25] MEDS ORDERED: LATANOPROST 0.005% OPHTH DROPS 2.5 ML BTL BOTH EYES SCH (21:00)
[2020-09-25] MEDS ORDERED: PREGABALIN 75 MG CAP PO SCH (21:00)
[2020-09-26 08:36] LABS: African American GFR (CKD) >90 (>60 ml/min/1.73 sqM); Anion Gap 7 mmol/L; Blood Urea Nitrogen 12 mg/dL (9-20); Calcium 9.6 mg/dL (8.4-10.2); Carbon Dioxide 33 mmol/L (22-30); Chloride 99 mmol/L (98-107); Cholesterol 161 mg/dL (<200); Glucose 136 mg/dL (74-99); HDL Cholesterol 48 mg/dL (40-60); LDL Cholesterol,Calculated 95 mg/dL (0-99); Non-African American GFR(CKD) >90 (>60 ml/min/1.73 sqM); Potassium 3.2 mmol/L (3.5-5.1); Sodium 139 mmol/L (137-145); Triglycerides 91 mg/dL (<150)
[2020-09-26] MEDS ORDERED: POTASSIUM CHLORIDE ER 20 MEQ TAB.ER PO STA ×2 (08:46→11:02)
[2020-09-26] MEDS ORDERED: RIVAROXABAN 20 MG TAB PO SCH (09:00)
[2020-09-26] MEDS: ASCORBIC ACID 500 MG TAB PO SCH (09:09)
[2020-09-26] MEDS: PREGABALIN 75 MG CAP PO SCH (09:09)
[2020-09-26] MEDS: ASPIRIN 81 MG PO SCH (09:09)
[2020-09-26] MEDS: CYANOCOBALAMIN 500 MCG TAB PO SCH (09:09)
[2020-09-26] MEDS: hydroCHLOROthiazide 25 MG TAB PO SCH (09:09)
[2020-09-26] MEDS: RIVAROXABAN 20 MG TAB PO SCH (09:10)
[2020-09-26] MEDS: CHOLECALCIFEROL 25 MCG (1000 IU) TABLET PO SCH (09:10)
[2020-09-26] MEDS: amLODIPine 5 MG TAB PO SCH (09:10)
[2020-09-26] MEDS: FERROUS SULFATE 325 MG TAB PO SCH (09:10)
[2020-09-26] MEDS: DORZOLAMIDE HCL 2% DROPS 10 ML BTL BOTH EYES SCH (09:10)
[2020-09-26 09:19] VITALS: BP 149/73; PULSE 74; RESP 16; TEMP 98.2
[2020-09-26] MEDS: ALBUTEROL HFA INHALER INHALATION PRN (09:32)
[2020-09-26] MEDS ORDERED: POTASSIUM CHLORIDE ER 20 MEQ TAB.ER PO ONE (11:05)
--- NOTE | 2020-09-26 11:33 | P.DS ---
Providers Date of admission: 09/25/20 03:04 Attending physician: Karolina Millard Consults: 09/25/20 00:59 Consult Physician Urgent Consulting Provider: Joel Rose Consult Reason/Comments: elevated troponin, pre-syncope Do you want consulting provider notified?: Yes, Notify in am Primary care physician: Zane Dodd [facility] Hospital Course: 70-year-old pleasant male was admitted for the syncope patient doesn't have any significant the abnormality and EKG telemetry within normal limits. Patient doesn't appear to be dehydrated and no infection. Patient will undergo echocardiogram and will undergo a stress test as an outpatient in the will be discharged later today. Echocardiac exam is within normal limits. Patient is hyponatremic secondary to hydrochlorothiazide patient's potassium will be replac ed and patient will be discharged on 20 mg of potassium and patient will need repeat basic metabolic profile on his visit to primary care's office PHYSICAL EXAMINATION: GENERAL: The patient is alert and oriented x3, not in any acute distress. Well developed, well nourished. HEENT: Pupils are round and equally reacting to light. EOMI. No scleral icterus. No conjunctival pallor. Normocephalic, atraumatic. No pharyngeal erythema. No thyromegaly. CARDIOVASCULAR: S1 and S2 present. No murmurs, rubs, or gallops. PULMONARY: Chest is clear to auscultation, no wheezing or crackles. ABDOMEN: Soft, nontender, nondistended, normoactive bowel sounds. No palpable organomegaly. MUSCULOSKELETAL: No joint swelling or deformity. EXTREMITIES: No cyanosis, clubbing, or pedal edema. NEUROLOGICAL: Gross neurological examination did not reveal any focal deficits. SKIN: No rashes. -Pre- syncope -Hypokalemia -Asthma -Hypertension -Hyperlipidemia -History of PE Patient Condition at Discharge: Stable Plan - Discharge Summary Discharge Rx Participant: No New Discharge Prescriptions: New Potassium Chloride ER [K-Dur 20] 20 meq PO DAILY #30 tab Continue Albuterol Sulfate [Proair Hfa] 2 puff INHALATION RT-Q6H PRN PRN Reason: Shortness Of Breath Cyanocobalamin [Vitamin B-12] 500 mcg PO DAILY traMADol HCL [Ultram] 50 mg PO TID PRN PRN Reason: Pain hydroCHLOROthiazide [Hydrodiuril] 25 mg PO DAILY SILVER sulfADIAZINE Cream [Silvadene 1% Cream] 1 applic TOPICAL BID PRN PRN Reason: Skin Irritation amLODIPine [Norvasc] 5 mg PO DAILY Brinzolamide [Azopt 1% Ophth Susp] 1 drop BOTH EYES BID Atorvastatin [Lipitor] 10 mg PO HS Travoprost 1 drop BOTH EYES HS Ascorbic Acid [Vitamin C] 500 mg PO DAILY Cholecalciferol [Vitamin D3 (25 Mcg = 1000 Iu)] 25 mcg PO DAILY Aspirin EC [Ecotrin Low Dose] 81 mg PO DAILY Ferrous Sulfate [Iron (65 MG Elemental)] 325 mg PO DAILY Rivaroxaban [Xarelto] 20 mg PO DAILY Pregabalin [Lyrica] 150 mg PO BID Discharge Medication List Albuterol Sulfate [Proair Hfa] 2 puff INHALATION RT-Q6H PRN 04/04/15 [History] Cyanocobalamin [Vitamin B-12] 500 mcg PO DAILY 06/08/15 [History] traMADol HCL [Ultram] 50 mg PO TID PRN 03/06/19 [History] Ascorbic Acid [Vitamin C] 500 mg PO DAILY 08/05/20 [History] Aspirin EC [Ecotrin Low Dose] 81 mg PO DAILY 08/05/20 [History] Atorvastatin [Lipitor] 10 mg PO HS 08/05/20 [History] Brinzolamide [Azopt 1% Ophth Susp] 1 drop BOTH EYES BID 08/05/20 [History] Cholecalciferol [Vitamin D3 (25 Mcg = 1000 Iu)] 25 mcg PO DAILY 08/05/20 [History] Ferrous Sulfate [Iron (65 MG Elemental)] 325 mg PO DAILY 08/05/20 [History] SILVER sulfADIAZINE Cream [Silvadene 1% Cream] 1 applic TOPICAL BID PRN 08/05/20 [History] Travoprost 1 drop BOTH EYES HS 08/05/20 [History] amLODIPine [Norvasc] 5 mg PO DAILY 08/05/20 [History] hydroCHLOROthiazide [Hydrodiuril] 25 mg PO DAILY 08/05/20 [History] Pregabalin [Lyrica] 150 mg PO BID 09/24/20 [History] Rivaroxaban [Xarelto] 20 mg PO DAILY 09/24/20 [History] Potassium Chloride ER [K-Dur 20] 20 meq PO DAILY #30 tab 09/26/20 [Rx] Follow up Appointment(s)/Referral(s): Yen Degroot MD [Primary Care Provider] - 3 Days Discharge Disposition: HOME SELF-CARE
--- NOTE | 2020-09-26 13:25 | P.PN ---
Subjective HISTORY OF PRESENTING ILLNESS This is a pleasant 70-year-old male past medical history significant for pulmonary embolism and hypertension. He follows in the office with Dr. Colón We have been asked to see in consultation for pre-syncope and elevated troponin. Patient did not have any episodes chest pain or focal cough cold def icits. No history of syncope CT chest was negative for new pulmonary embolism. Troponin trend 0.048-->0.05-->0.05. Dizziness resolved, patient did not have any further episodes. EKG revealed sinus rhythm with 1st degree AV block, no significant ST-T wave abnormalities Current home cardiac medications include Xarelto 20 mg daily (he takes for his pulmonary embolism), amlodipine 5 mg daily, aspirin 81 mg daily, hydrochlorothiazide 25 mg daily, atorvastatin 10 mg nightly, potassium chloride 20 mEq daily 09/26/2020: Patient seen and examined at bedside. Sitting up in chair. No apparent distress. He does not have any complaints. BP 149/73, heart rate 74, maintaining oxygen saturations on room air, afebrile. Laboratory data reviewed, sodium 139, potassium 3.2, serum creatinine 0.78, triglycerides 91, cholesterol 161, LDL 95, HDL 48, UA negative. Telemetry reviewed - patient has been in sinus mechanism HR 60s-70s, no arrhythmia noted. Patient currently being maintained on Xarelto 20 mg daily, amlodipine 5 mg daily, aspirin 81 mg daily, hydrochlorothiazide 25 mg daily, atorvastatin 10 mg nightly PHYSICAL EXAMINATION CONSTITUTIONAL: No apparent distress. HEENT: Head is normocephalic. Mucous membranes of the mouth are moist. No JVD. No carotid bruit. CHEST EXAMINATION: Lungs are clear to auscultation. No chest wall tenderness is noted on palpation or with deep breathing. HEART EXAMINATION: Regular rate and rhythm. S1, S2 heard. No murmurs, gallops or rub. ABDOMEN: Soft, nontender. Positive bowel sounds. EXTREMITIES: 2+ peripheral pulses, no lower extremity edema and no calf t enderness. NEUROLOGIC EXAMINATION: Patient is awake, alert and oriented x3. ASSESSMENT Elevated troponin, mildly elevated. Not consistent with acute coronary event. The patient does not have chest pain Dizziness, unclear etiology History of Hypertension History of Pulmonary Embolism Hypokalemia PLAN Replace potassium Will obtain limited echo to look for any wall motion abnormalities,- if the LV function is normal and there are no new focal wall motion abnormalities patient stable to be discharged from cardiology perspective Patient should follow up in the outpatient office with Dr. Colón Nurse Practitioner note has been reviewed, I agree with a documented findings and plan of care. Patient was seen and examined. Objective - Vital Signs Vital signs: Vital Signs Temp 98.1 F 09/26/20 04:00 Pulse 69 09/26/20 04:00 Resp 17 09/26/20 04:00 BP 151/59 09/26/20 04:00 Pulse Ox 96 09/26/20 04:00 Intake & Output 09/25/20 09/26/20 09/26/20 18:59 06:59 18:59 Weight 125.3 kg Other: Voiding Method Toilet # Voids 2 - Labs CBC & Chem 7: 09/24/20 23:31 09/26/20 07:16 Labs: Abnormal Lab Results - Last 24 Hours (Table) 09/26/20 Range/Units 07:16 Potassium 3.2 L (3.5-5.1) mmol/L Carbon Dioxide 33 H (22-30) mmol/L Glucose 136 H (74-99) mg/dL
--- NOTE | 2020-09-26 18:08 | ECHOF ---
Referral Reason:elevated troponin MEASUREMENTS -------- HEIGHT: 165.1 cm WEIGHT: 125.2 kg BP: IVSd: 1.5 cm (0.6 - 1.1) LVIDd: 5.0 cm (3.9 - 5.3) LVPWd: 1.6 cm (0.6 - 1.1) EDV(Teich): 119 ml IVSs: 2.2 cm LVIDs: 2.7 cm LVPWs: 2.0 cm %IVS Thck: 46 % ESV(Teich): 28 ml EF(Teich): 76 % %FS: 45 % SV(Teich): 91 ml RVIDd: 3.0 cm (< 3.3) Ao Diam: 3.9 cm (2.0 - 3.7) LA Diam: 3.1 cm (2.7 - 3.8) AV Cusp: 2.2 cm (1.5 - 2.6) EPSS: 0.5 cm TR Vmax: 1.60 m/s TR maxP.18 mmHg RAP: 5.00 mmHg RVSP: 15.18 mmHg MV EF SLOPE: 104.54 mm/s (70 - 150) MV EXCURSION: 18.74 mm (> 18.000) FINDINGS -------- Limited Study for lv function The left ventricular size is normal. There is moderate concentric left ventricular hypertrophy. O verall left ventricular systolic function is low-normal with, an EF between 50 - 55 %. There is no pericardial effusion. CONCLUSIONS -------- 1. Limited Study for lv function 2. The left ventricular size is normal. 3. There is moderate concentric left ventricular hypertrophy. 4. Overall left ventricular systolic function is low-normal with, an EF between 50 - 55 %. 5. There is no pericardial effusion. [employer] PROFESSOR: Maggy Bain RDCS
== END 2020-09-26 16:11 | disposition home or self-care (01) ==
LOC: EC 22:14 → 3SCARD 09-25 03:04
PROVIDERS: ADMIT Hospitalist; ATTEND Hospitalist
DX: R55 Syncope and collapse (principal); E87.6 Hypokalemia; J45.909 Unspecified asthma, uncomplicated; I11.9 Hypertensive heart disease without heart failure; E78.5 Hyperlipidemia, unspecified; Z86.711 Personal history of pulmonary embolism; E87.1 Hypo-osmolality and hyponatremia; T50.2X5A Adverse effect of carbonic-anhydrase inhibitors, benzothiadiazides and other diuretics, initial encounter; R79.89 Other specified abnormal findings of blood chemistry; Z79.899 Other long term (current) drug therapy; Z79.82 Long term (current) use of aspirin; Z79.01 Long term (current) use of anticoagulants; Z20.822 Contact with and (suspected) exposure to COVID-19; M19.90 Unspecified osteoarthritis, unspecified site; Z86.16 Personal history of COVID-19; Z90.49 Acquired absence of other specified parts of digestive tract; Z98.84 Bariatric surgery status; E66.9 Obesity, unspecified; Z68.42 Body mass index [BMI] 45.0-49.9, adult; Z79.891 Long term (current) use of opiate analgesic; Z88.5 Allergy status to narcotic agent; Z88.0 Allergy status to penicillin; Z88.8 Allergy status to other drugs, medicaments and biological substances
CPT/HCPCS: 99285; 36415; 94640 ×2; 93005; 83880; 80061; 80053; 80048; 83735; 84484 ×2; 85025; 85610; 85730; 81003; 87635; 71046; 71275; G0378 ×2; C8924; Q9950; Q9967; 93308

== ENCOUNTER → 2020-11-07 | Outpatient (CLI) | payer MEDICARE ==
--- NOTE | 2020-11-08 07:16 | US ---
EXAMINATION TYPE: US kidneys/renal and bladder DATE OF EXAM: 11/07/2020 COMPARISON: CT abdomen and pelvis 03/06/2019 CLINICAL HISTORY: N28.9 Known renal disease, cysts. Hx of cysts EXAM MEASUREMENTS: Right Kidney: 10.6 x 4.0 x 3.6 cm Left Kidney: 11.7 x 4.3 x 4.5 cm Right Kidney: Minimally complex cystic structure with septation seen upper pole 1.6 x 2.4 x 2.1 cm Left Kidney: Vague hypoechoic structure seen upper pole 2.9 x 2.7 x 3.2 cm . This may represent a co mplex cyst. Bladder: Not fully distended Bilateral Jets seen: No There is no evidence for hydronephrosis at this point in time. No nephrolithiasis is seen. The urina ry bladder is anechoic. IMPRESSION: 1. 2.4 cm minimally complex cyst with septation at the upper pole of the right kidney. 2. Probable complex cyst measuring 2 3.2 cm at the upper pole of the left kidney. 3. No hydronephrosis or shadowing renal calculi. 4. Urinary bladder is not fully distended. Bilateral ureteral jets are not seen.
== END | disposition home or self-care (01) ==
LOC: RADUSWWP 14:54
PROVIDERS: ATTEND Internal Medicine
DX: N28.89 Other specified disorders of kidney and ureter (principal)
CPT/HCPCS: 76770

== ENCOUNTER → 2021-01-16 | Outpatient (CLI) | payer MEDICARE | END | disposition home or self-care (01) | LOC: LABWHC1 15:14 | PROVIDERS: ATTEND Internal Medicine | DX: R06.02 Shortness of breath (principal) | CPT/HCPCS: 36415; 85379 ==

== ENCOUNTER → 2021-01-17 | Outpatient (CLI) | payer MEDICARE ==
[2021-01-17 11:33] LABS: African American GFR (CKD) >90 (>60 ml/min/1.73 sqM); Blood Urea Nitrogen 10 mg/dL (9-20); Non-African American GFR(CKD) 89 (>60 ml/min/1.73 sqM)
--- NOTE | 2021-01-17 13:33 | CT ---
EXAMINATION TYPE: CT urogram wo/w con DATE OF EXAM: 01/17/2021 COMPARISON: 03/06/2019 INDICATION: Hematuria DLP: 6497.7 mGycm, Automated exposure control for dose reduction was used. CONTRAST: 100 mL of Isovue 300. Study performed without Oral Contrast TECHNIQUE: Axial images were obtained from above the diaphragm to the pubic rami in the axial plane a t 5 mm thick sections. Reconstructed images are reviewed on the computer in the coronal plane. FINDINGS: Limited CT sections are obtained the lung bases. There is some increased lung markings at the left b ase may be related to pulmonary fibrosis. Coronary artery calcification is noted.. CT ABDOMEN: Liver: Normal Spleen: Normal Pancreas: Some fatty infiltration of pancreas Adrenal glands: The adrenal glands are normal. Gallbladder: Surgically absent Kidneys: No masses are evident. No hydronephrosis is present. There is a 2.5 cm cyst on the posteri or lateral left kidney measuring 9 Hounsfield units. There is a medial right renal cyst measuring 1.8 cm and 11 Hounsfield units. Delayed images were obtained through the kidneys, which remain unremark able. 3-D reconstructive images performance of a completed by the technologist are reviewed. Source images are reviewed. Ureters follow a normal caliber course and contour to the urinary bladder. No intralumi nal or extramural defects and ureters is evident. Urinary bladder fills normally. Right posterior lat eral diverticulum may be present. Three-D reconstructed images are reviewed. Renal calyces infundibul a and renal pelves appear normal. Ureters follow a normal caliber course and contour in the bladder o n sequential images. Aorta: Vascular calcification is within the aorta. Inferior vena cava: Normal. CT PELVIS: Loops of bowel within the abdomen and pelvis are normal. This study is limited lacking oral contr ast. Appendix: Normal as visualized. Urinary bladder: Normal. Genitourinary structures: Prostate appears small Osseous structures: No suspicious lytic or sclerotic lesions. Facet hypertrophy is within the lower l umbar spine. IMPRESSIONS: 1. No suspicious abnormality to account for hematuria CT urogram. There are bilateral renal cysts pr esent. 2. There is a small urinary bladder diverticulum inferior lateral right region
== END | disposition home or self-care (01) ==
LOC: RADCTMAIN 10:16
PROVIDERS: ATTEND Urology
DX: N32.3 Diverticulum of bladder (principal); N28.1 Cyst of kidney, acquired
CPT/HCPCS: 82565; 84520; 74178; 36415; 74400; Q9967

== ENCOUNTER → 2021-10-05 | Outpatient (CLI) | payer MEDICARE ==
--- NOTE | 2021-10-05 18:33 | CONS ---
CONSULTATION DATE OF SERVICE: 10/05/2021 This 71-year-old gentleman has been evaluated in [facility] for possible obstructive sleep apnea-hypopnea syndrome. HISTORY OF PRESENT ILLNESS/SLEEP-WAKE EVALUATION: Patient's usual sleep schedule is from around midnight or 2 a.m. until 7 a.m. No problems with falling asleep; no TV in bedroom. Patient during the last period of time sleeps on the chair position. He snores and he wakes up from sleep 3 times, with 2 episodes of nocturia. Twenty-five years ago the patient was diagnosed with obstructive sleep apnea, but at that time he was not able to receive the machine secondary to insurance problems. At present he wakes up tired, falling asleep during the day. He takes naps one or two times a day. [place] Sleepiness Scale is 7. No history of hypnagogic hallucinations, sleep paralysis or cataplexy. PAST MEDICAL HISTORY: Positive for hypertension, hyperlipidemia, asthma, cataract, glaucoma. PAST SURGICAL HISTORY: Surgery for cataract, lap band surgery, surgery for umbilical hernia, cholecystectomy. MEDICATIONS: 1. Duloxetine 60 mg once a day. 2. Pregabalin 150 mg 1 to 3 times a day. 3. Amlodipine 5 mg once a day. 4. Atorvastatin 10 mg once a day. 5. HydroDIURIL 25 mg once a day. 6. Tramadol 50 mg up to 3 times a day. 7. ProAir inhaler. 8. Eyedrops, travoprost and brinzolamide. SOCIAL HISTORY: Negative for smoking or using alcohol. FAMILY HISTORY: Hypertension. REVIEW OF SYSTEMS: Multiple awakenings from sleep, sleepiness during the day, snoring, witnessed episodes of stopped breathing and snoring. No fevers. No double vision. No recent chest pain. No shortness of breath. No abdominal pain. No bleeding episodes. No blood in the urine. No seizure episodes. PHYSICAL EXAMINATION: GENERAL: Pleasant gentleman without distress. VITAL SIGNS: BP 134/72, HR 63, RR 16, height 5 feet 5-1/2 inches, weight 332.8 pounds, body mass index 54.4, temperature 98.0, oxygen saturation at room air 96%. HEENT: PERRLA, EOMI, evaluation of oropharynx showed tongue protrudes midline. Extremely low position of soft palate; Mallampati IV. NECK: Supple, no JVD. Thyroid is not palpable. Neck is extremely wide; 20 inches in circumference. LUNGS: Clear to percussion and to auscultation. Good air exchange. No wheezing or rhonchi. HEART: S1, S2 regular. No murmurs, gallops, or rubs. ABDOMEN: Obese. EXTREMITIES: No clubbing or cyanosis. [employer]: Awake, alert, and oriented X3. Cranial nerves 2 to 7 intact. There is no fasciculation or atrophy. noted. No focal deficits observed. IMPRESSION: 1. Snoring, witnessed episodes of stopped breathing during sleep, extremely low position of soft palate, Mallampati IV, wide neck, 20 inches in circumference; obstructive sleep apnea-hypopnea syndrome. 2. Obesity; BMI 54.4. 3. Hypertension. 4. Hyperlipidemia. 5. Asthma. 6. Glaucoma. 7. Status post cataract surgery. 8. Status post tonsillectomy. 9. Status post lap band surgery. 10.Status post umbilical hernia repair. 11.Status post cholecystectomy. PLAN: 1. Polysomnography for evaluation of patient's breathing during sleep. 2. CPAP/BiPAP titration if sleep study confirms obstructive sleep apnea-hypopnea syndrome. 3. Preferable position during sleep on the side. 4. No driving if patient feels any sleepiness. 5. I will see patient for follow up visit to explain results of testing and following plan. Thank you very much for referring this patient for consultation. Sincerely, Andrew Mccormick MD, PhD, FAASM Diplomat of [employer] [place] [employer] Sleep Medicine Board of [employer] [place] [employer] [place] MMODL / IJN: [id number] /
== END ==
LOC: SLEEP 15:05
PROVIDERS: ATTEND Internal Medicine
DX: G47.33 Obstructive sleep apnea (adult) (pediatric) (principal); E66.9 Obesity, unspecified; Z68.43 Body mass index [BMI] 50.0-59.9, adult; I10 Essential (primary) hypertension; E78.5 Hyperlipidemia, unspecified; J45.909 Unspecified asthma, uncomplicated; H40.9 Unspecified glaucoma; Z98.42 Cataract extraction status, left eye; Z98.41 Cataract extraction status, right eye; Z90.09 Acquired absence of other part of head and neck; Z98.84 Bariatric surgery status; Z98.890 Other specified postprocedural states; Z90.49 Acquired absence of other specified parts of digestive tract; Z88.6 Allergy status to analgesic agent; Z88.0 Allergy status to penicillin; Z88.5 Allergy status to narcotic agent
CPT/HCPCS: 99211

== ENCOUNTER → 2022-01-04 | Outpatient (CLI) | payer MEDICARE ==
--- NOTE | 2022-01-04 12:11 | P.PN ---
Subjective DATE: [] FOLLOW UP VISIT. 72 year old gentleman has been followed in sleep center to discuss results of sleep test and following plan. Patient has history of obstructive sleep apnea hypopnea syndrome diagnosed about 25 years ago but at that time he was not able to get CPAP treatment. We proceed with the polysomnogram, but during the test patient stayed only on the recliner and he never was in bed during the test. At home she also sleep only on recliner. Results of the test are negative for obstructive sleep apnea hypopnea syndrome, but again it was done on recliner. I discussed with patient and family to repeat sleep test possibly as home sleep apnea test, but it has to be done in bed., With the goal to document the patient has obstructive sleep apnea hypopnea syndrome, because I'm pretty sure that if test will be done in bed, it will be positive for obstructive sleep apnea hypopnea syndrome. Sleep study also showed significant amount of periodic limb movements and I discussed with patient possibility to start Pharma, therapy for treatment of leg movements. Presently patient prefers not to start any additional medications for leg movements, she also 1 to think about repeating sleep test because presently he always sleep on recliner at home. MEDICATIONS:1. Amlodipine 5 mg once a day 2. Atorvastatin 10 mg once a day 3. Tramadol 50 mg 3 times a day 4. Albuterol inhaler 5. Pregabalin 150 mg 3 times a day 6. Brinzolamide 7. Travoprost During physical exam: GENERAL: A pleasant patient without any distress. VITAL SIGNS: BP 134/81, HR 76, RR 20 , weight 344, temperature 97.5, oxygen saturation at room air 95 % . HEENT: PERRLA, EOMI.low position of soft palate, Mallapati 4 . NECK: Supple. No JVD. LUNGS: Clear to percussion and to auscultation. Good air exchange. No wheezing or rhonchi. HEART: S1, S2 regular. ABDOMEN: Soft and nontender. Obese EXTREMITIES: No clubbing or cyanosis. ROAD MACHINE RUNNER: Awake, alert, and oriented x3. No focal deficit. Impressions: 1. History of obstructive sleep apnea hypopnea syndrome in the past. Sleep study is negative for obstructive sleep apnea hypopnea syndrome, but sleep test was done on recliner position. Patient sleeps only on recliner at home. I believe patient has obstructive sleep apnea hypopnea syndrome if he will sleep in bed. 2. Obesity. 3. Periodic limb movements. At the present time patient prefers not to start pharmacotherapy for periodic limb movements. 4. Hypertension. 5. Hyperlipidemia. 6. Asthma. 7. Glaucoma. 8. Status post cataract surgery. 9. Status post lap band surgery. 10 status post cholecystectomy Plan: 1. Patient will continue to sleep on the recliner at home. 2. If patient will agree to do sleep test in bed, we may proceed with home sleep apnea test 3. Please check iron profile with ferritin level low level of iron increase the risk for periodic limb movements. 4. Aggressive losing weight program 5. Sleep hygiene with regular time in bed for at least 8 hours. 6. Precautions related to driving. No driving if feel any sleepiness. 7. Follow up visit in 6 months or earlier if patient has any problems. Thank you very much for allowing me to participate in the management of your patient. Andrew Mccormick MD, PhD, FAASM. Diplomat of [place] [employer], Sleep Medicine Board by [place] [employer] Financial Operations Analyst of [facility] [place]
== END ==
LOC: SLEEP 10:53
PROVIDERS: ATTEND Internal Medicine
DX: G47.33 Obstructive sleep apnea (adult) (pediatric) (principal); E66.9 Obesity, unspecified; I10 Essential (primary) hypertension; E78.5 Hyperlipidemia, unspecified; J45.909 Unspecified asthma, uncomplicated; H40.9 Unspecified glaucoma; Z98.49 Cataract extraction status, unspecified eye; Z98.84 Bariatric surgery status; Z90.49 Acquired absence of other specified parts of digestive tract; Z79.51 Long term (current) use of inhaled steroids; Z88.6 Allergy status to analgesic agent; Z88.5 Allergy status to narcotic agent; Z88.0 Allergy status to penicillin; Z88.8 Allergy status to other drugs, medicaments and biological substances

== ENCOUNTER → 2022-01-06 | Outpatient (CLI) | payer MEDICARE ==
[2022-01-06 16:27] LABS: HGB 12.6 g/dL (13.0-17.0); MCH 29.7 pg (27.0-32.0); MCHC 32.3 g/dL (32.0-37.0); NRBC Per 100 WBC 0 /100 WBCS (0.0-0.0); Platelet Count 252 X 10*3/uL (140-440); RBC 4.24 X 10*6/uL (4.40-5.60); RDW 14.6 % (11.5-14.5); WBC 11.36 X 10*3/uL (4.50-10.00)
[2022-01-06 17:51] LABS: ALT 19 U/L (10-49); AST 20 U/L (14-35); African American GFR (CKD) 92.4 (60.0-200.0); Albumin 4.1 g/dL (3.8-4.9); Albumin/Globulin Ratio 1.25 (1.60-3.17); Alkaline Phosphatase 85 U/L (41-126); BUN/Creat Ratio 16.23 Ratio (12.00-20.00); Bilirubin, Conjugated <0.20 mg/dL (0.20-0.40); Blood Urea Nitrogen 15.4 mg/dL (9.0-27.0); Calcium 9.5 mg/dL (8.7-10.3); Carbon Dioxide 30.4 mmol/L (20.0-27.5); Chloride 98 mmol/L (96-109); Chol/HDL Ratio 2.63 Ratio; Globulin 3.3 g/dL (1.6-3.3); Glucose 198 mg/dL (70-110); LDL Cholesterol,Calculated 65.2 mg/dL (0.0-131.0); Non-African American GFR(CKD) 79.8 (60.0-200.0); Potassium 3.6 mmol/L (3.5-5.5); Sodium 141 mmol/L (135-145); Total Protein 7.3 g/dL (6.2-8.2)
== END | disposition home or self-care (01) ==
LOC: LABWHC1 09:51
PROVIDERS: ATTEND Internal Medicine
DX: I10 Essential (primary) hypertension (principal); D64.9 Anemia, unspecified; E55.9 Vitamin D deficiency, unspecified; E78.5 Hyperlipidemia, unspecified
CPT/HCPCS: 36415; 80053; 80061; 82248; 82306; 85027

== ENCOUNTER 2022-03-31 15:36 | Emergency (ER) | payer MEDICARE ==
[2022-03-31] MEDS ORDERED: MAG HYDROX/AL HYDROX/SIMETH 30 ML, HYOSCYAMINE ELIXIR 10 ML, LIDOCAINE VISCOUS 2% 10 ML PO STA ×3 (16:16)
--- NOTE | 2022-03-31 16:32 | ED ---
Chest Pain HPI - General Chief Complaint: Chest Pain Stated Complaint: chest pain Time Seen by Provider: 03/31/22 16:04 Source: patient, RN notes reviewed Mode of arrival: wheelchair Limitations: no limitations - History of Present Illness Initial Comments: This is a pleasant 72-year-old male with a history of hypertension, hyperlipidemia, asthma, and pulmonary embolus. Patient states that for about one week he has had pain in the sternal area of his chest. Patient unable to characterize the pain. Patient states this is exacerbated by movement. Patient also states that he discerned that he has mild increased shortness of breath. Patient does have a history of asthma and previously had a pulmonary embolus last year after having COVID-19. Patient no longer anticoagulated. Denying any productive cough. Denies any fever. No leg pain. No recent immobilization. No skin rashes or lesions. No headache, no fever or chills, no changes in vision or hearing, no sore throat or difficulty with speech, no neck pain, no abdominal pain, no nausea or vomiting, no changes in urination or bowel movements, no numbness or tingling, no extremity pain, no skin rashes or lesions. Past medical, surgical, social, and family history reviewed. MD Complaint: chest pain - Related Data Home Medications Medication Instructions Recorded Confirmed Albuterol Sulfate [Proair Hfa] 2 puff INHALATION RT-Q6H PRN 04/04/15 09/24/20 Cyanocobalamin [Vitamin B-12] 500 mcg PO DAILY 06/08/15 09/24/20 traMADol HCL [Ultram] 50 mg PO TID PRN 03/06/19 09/24/20 Ascorbic Acid [Vitamin C] 500 mg PO DAILY 08/05/20 09/24/20 Aspirin EC [Ecotrin Low Dose] 81 mg PO DAILY 08/05/20 09/24/20 Atorvastatin [Lipitor] 10 mg PO HS 08/05/20 09/24/20 Brinzolamide [Azopt 1% Ophth Susp] 1 drop BOTH EYES BID 08/05/20 09/24/20 Cholecalciferol [Vitamin D3 (25 25 mcg PO DAILY 08/05/20 09/24/20 Mcg = 1000 Iu)] Ferrous Sulfate [Iron (65 MG 325 mg PO DAILY 08/05/20 09/24/20 Elemental)] SILVER sulfADIAZINE Cream 1 applic TOPICAL BID PRN 08/05/20 09/24/20 [Silvadene 1% Cream] Travoprost [Travoprost 0.004%] 1 drop BOTH EYES HS 08/05/20 09/24/20 amLODIPine [Norvasc] 5 mg PO DAILY 08/05/20 09/24/20 hydroCHLOROthiazide [Hydrodiuril] 25 mg PO DAILY 08/05/20 09/24/20 Pregabalin [Lyrica] 150 mg PO BID 09/24/20 09/24/20 Rivaroxaban [Xarelto] 20 mg PO DAILY 09/24/20 09/24/20 Previous Rx's Medication Instructions Recorded Potassium Chloride ER [K-Dur 20] 20 meq PO DAILY #30 tab 09/26/20 Allergies Allergy/AdvReac Type Severity Reaction Status Date / Time acetaminophen [From Vicodin] Allergy Rash/Hives Verified 03/31/22 15:40 hydrocodone bitartrate Allergy Rash/Hives Verified 03/31/22 15:40 [From Vicodin] Penicillins Allergy Rash/Hives Verified 03/31/22 15:40 cortisone AdvReac Abdominal Verified 03/31/22 15:40 Pain NSAIDS (Non-Steroidal AdvReac Abdominal Verified 03/31/22 15:40 Anti-Inflamma Pain prednisone AdvReac Abdominal Verified 03/31/22 15:40 Pain Review of Systems ROS Statement: Those systems with pertinent positive or pertinent negative responses have been documented in the HPI. ROS Other: All systems not noted in ROS Statement are negative. EKG Findings - EKG Comments: EKG Findings:: EKG done at 1602 and by the ED attending physician reveals sinus rhythm with a rate of 78. Normal intervals. Left ventricular hypertrophy. One PVC. Left axis deviation. Poor R-wave progression. No evidence of acute ST or T-wave changes. When compared to the previous study from September 2020 there is no significant change. Past Medical History Past Medical History: Asthma, Eye Disorder, Hyperlipidemia, Hypertension, Osteoarthritis (OA), Pulmonary Embolus (PE) Additional Past Medical History / Comment(s): COVID 19 infection April, BILAT GLAUCOMA AND CATARACTS, obesity History of Any Multi-Drug Resistant Organisms: None Reported Past Surgical History: Bariatric Surgery, Cholecystectomy, Hernia Repair, Orthopedic Surgery, Tonsillectomy Additional Past Surgical History / Comment(s): ANAL FISSURE REMOVED. RT ROTATOR CUFF REPAIR. LAP BAND IN AND THEN REMOVED. WARTS REMOVED FROM LOWER EXTREMIES. COLONOSCOPY. SURGERY BILAT EYES FOR CATARACTS AND GLAUCOMA. EGD. RT KNEE SCOPE Past Anesthesia/Blood Transfusion Reactions: No Reported Reaction Additional Past Anesthesia/Blood Transfusion Reaction / Comment(s): Pt has never received blood. Past Psychological History: No Psychological Hx Reported Smoking Status: Never smoker Past Alcohol Use History: None Reported Past Drug Use History: None Reported - Past Family History Mother Family Medical History: Unable to Obtain Additional Family Medical History / Comment(s): FAMILY HX UNKNOWN PT IN FOSTER CARE CHILD Father History Unknown: Yes Family Medical History: Unable to Obtain Additional Family Medical History / Comment(s): Pt raised in foster care. General Exam - General Exam Comments Initial Comments: Patient does not appear to be ill or toxic, vital signs reviewed, patient hypertensive. Limitations: no limitations General appearance: alert, in no apparent distress, obese Head exam: Present: atraumatic, normocephalic, normal inspection Eye exam: Present: normal appearance, PERRL, EOMI. Absent: scleral icterus, conjunctival injection, periorbital swelling ENT exam: Present: normal exam, normal oropharynx, mucous membranes moist, normal external ear exam. Absent: mucous membranes dry Neck exam: Present: normal inspection. Absent: tenderness, meningismus, lymphadenopathy Respiratory exam: Present: normal lung sounds bilaterally, chest wall tenderness (Patient has tenderness to the left sternal border on palpation. No break in skin integrity. No erythema. No rash or lesion.). Absent: respiratory distress, wheezes, rales, rhonchi, stridor, accessory muscle use, decreased breath sounds Cardiovascular Exam: Present: regular rate, normal rhythm, normal heart sounds. Absent: systolic murmur, diastolic murmur, rubs, gallop, clicks GI/Abdominal exam: Present: soft, normal bowel sounds. Absent: distended, tenderness, guarding, rebound, rigid Extremities exam: Present: normal inspection, full ROM, normal capillary refill. Absent: tenderness, pedal edema, joint swelling, calf tenderness Back exam: Present: normal inspection Neurological exam: Present: alert, oriented X3, CN II-XII intact Psychiatric exam: Present: normal affect, normal mood Skin exam: Present: warm, dry, intact, normal color. Absent: rash Course Vital Signs 10/08/22 15:40 Temperature 98.3 F Pulse Rate 80 Respiratory 16 Rate Blood Pressure 188/66 O2 Sat by Pulse 96 Oximetry - Reevaluation(s) Reevaluation #1: 03/31/22 18:41 Medical record is reviewed Symptoms are unchanged, patient's pain still reproducible both with movement and palpation Patient is informed of results and questions answered Patient in no distress Chest Pain MDM - MDM Patient symptomology most consistent with chest wall pain. However given the patient's history of pulmonary embolism, this needs to be considered. Does not appear to be consistent with ischemic cardiac pain. Patient has no nausea or vomiting. Also seems somewhat inconsistent with gastrointestinal etiology. Patient does not appear to be ill or toxic. Infectious etiology unlikely as well. Patient's workup essentially consistent with chest wall pain, likely musculoskeletal. However given the patient's comorbidities and age, we did advise that he be admitted for further evaluation. However, Patient states that he feels fine, he is okay with the initial negative cardiac test given that his pain is been going on for 2 weeks. Despite my advice that he be admitted for observation and further evaluation he is electing to be discharged. Discussed the risks to include risks of missed diagnosis to include pulmonary and cardiac disease. Patient states he understands the risks. Patient states he will follow-up with his blade operator as outpatient. States he also follow-up with his primary care physician. Patient is lucid, alert and oriented 4, able to make his own medical decisions. Of course I told him to return immediately if any symptoms worsen. Patient in understanding. The case was discussed in detail with ED attending physician. Presentation, findings, treatment plan discussed in detail. Tanker Serviceman Dr. Doan Disposition Clinical Impression: Anterior chest wall pain Disposition: HOME SELF-CARE Instructions (If sedation given, give patient instructions): Chest Pain (ED), Costochondritis (ED) Additional Instructions: Follow-up with your regular physician as directed. Return to the ER immediately if any symptoms worsen, new symptoms arise, or any other problems develop. Continue home medications as directed. You can add in regular [id number] Tylenol as directed on the bottle for additional pain control if needed. Is patient prescribed a controlled substance at d/c from ED?: No Referrals: Yen Degroot MD [REFERRING] - 1-2 days Bahman Colón MD [STAFF PHYSICIAN] - 04/02/22 8:00 am Time of Disposition: 18:41
[2022-03-31 16:58] LABS: Basophils # (A) 0.1 k/uL (0-0.2); Basophils % (A) 1 %; Eosinophils # (A) 0.4 k/uL (0-0.7); Eosinophils % (A) 3 %; HGB 12.7 gm/dL (13.0-17.5); Lymphocytes # (A) 2.5 k/uL (1.0-4.8); Lymphocytes % (A) 22 %; MCHC 34.2 g/dL (31.0-37.0); MCV 90.6 fL (80.0-100.0); Mean Platelet Volume 8.5; Monocytes # (A) 0.6 k/uL (0-1.0); Monocytes % (A) 5 %; Neutrophils # (A) 7.8 k/uL (1.3-7.7); Neutrophils % (A) 67 %; Platelet Count 227 k/uL (150-450); RBC 4.08 m/uL (4.30-5.90); RDW 14.9 % (11.5-15.5); WBC 11.6 k/uL (3.8-10.6)
--- NOTE | 2022-03-31 17:07 | XR ---
EXAMINATION TYPE: XR abdomen acute w cxr DATE OF EXAM: 03/31/2022 COMPARISON: NONE HISTORY: Pain TECHNIQUE: 5 views FINDINGS: There is some linear density left lung base. Heart size is normal. No heart failure. There is no sign of intestinal obstruction or pneumoperitoneum. Fecal pattern is normal. There are cl ips from cholecystectomy. No evidence of a mass. There are spondylotic changes in the lumbar spine. N o definite calcifications over the kidneys. IMPRESSION: Nonacute abdomen. There is some atelectasis and scarring left lung base. Chest is stable compared to 09/24/2020.
[2022-03-31 17:09] LABS: INR 0.9 (<1.2); Partial Thromboplastin Time 24.6 sec (22.0-30.0)
[2022-03-31 17:15] LABS: ALT 18 U/L (4-49); AST 26 U/L (17-59); African American GFR (CKD) >90 (>60 ml/min/1.73 sqM); Albumin 4.1 g/dL (3.5-5.0); Alkaline Phosphatase 73 U/L (38-126); Anion Gap 13 mmol/L; Blood Urea Nitrogen 23 mg/dL (9-20); Calcium 9.3 mg/dL (8.4-10.2); Carbon Dioxide 25 mmol/L (22-30); Chloride 98 mmol/L (98-107); Glucose 133 mg/dL (74-99); Lipase 121 U/L (23-300); Non-African American GFR(CKD) 85 (>60 ml/min/1.73 sqM); Sodium 136 mmol/L (137-145); Total Bilirubin 0.7 mg/dL (0.2-1.3); Total Protein 6.7 g/dL (6.3-8.2)
--- NOTE | 2022-03-31 18:18 | CT ---
EXAMINATION TYPE: CT chest angio for PE DATE OF EXAM: 03/31/2022 COMPARISON: 09/25/2020 HISTORY: chest pain CT DLP: 844.5 mGycm Automated exposure control for dose reduction was used. CONTRAST: Performed with IV Contrast, patient injected with 100 mL of Isovue 370. There are Three-D postprocessed images. There is coarse interstitial density in the lungs. There is some atelectasis at the lung bases. No pl eural effusion. Heart is borderline enlarged. No pericardial effusion. No mediastinal adenopathy. Tho racic aorta is atheromatous. No aneurysm or dissection. No evidence of filling defect in the pulmonary arteries. There is degenerative spurring in the thoracic spine. No compression fracture. The sternum is intact. IMPRESSION: No evidence of pulmonary embolism. Interstitial infiltrates and atelectasis in the lung burr slightly worse than last exam. No suspici ous pulmonary mass. Mild cardiomegaly.
[2022-03-31 19:37] VITALS: BP 124/71; PULSE 77; RESP 17; TEMP 98.5
== END 2022-03-31 19:37 | disposition home or self-care (01) ==
LOC: SUPCPDRO 15:36 → EC 15:36
DX: R07.89 Other chest pain (principal); I10 Essential (primary) hypertension; E78.5 Hyperlipidemia, unspecified; J45.909 Unspecified asthma, uncomplicated; Z86.711 Personal history of pulmonary embolism; Z79.82 Long term (current) use of aspirin; Z79.01 Long term (current) use of anticoagulants; Z88.6 Allergy status to analgesic agent; Z88.0 Allergy status to penicillin; Z88.8 Allergy status to other drugs, medicaments and biological substances; E66.9 Obesity, unspecified
CPT/HCPCS: 36415; 80053; 83690; 84484; 85025; 85610; 85730; 74022; 71275; 99285; Q9967

== ENCOUNTER → 2022-05-24 | Outpatient (CLI) | payer MEDICARE ==
[2022-05-24 15:03] LABS: HGB 11.9 g/dL (13.0-17.0); MCH 31.6 pg (27.0-32.0); MCHC 33.1 g/dL (32.0-37.0); MCV 95.7 fL (80.0-97.0); Mean Platelet Volume 11.4 fL (9.5-12.2); NRBC Per 100 WBC 0 /100 WBCS (0.0-0.0); Platelet Count 236 X 10*3/uL (140-440); RBC 3.76 X 10*6/uL (4.40-5.60)
[2022-05-24 15:05] LABS: African American GFR (CKD) 98.5 (60.0-200.0); Anion Gap 9.3 mmol/L (10.00-18.00); Blood Urea Nitrogen 21.3 mg/dL (9.0-27.0); Carbon Dioxide 32.1 mmol/L (20.0-27.5); Non-African American GFR(CKD) 84.9 (60.0-200.0); Potassium 3.6 mmol/L (3.5-5.5)
== END | disposition home or self-care (01) ==
LOC: LABWHC1 09:29
PROVIDERS: ATTEND Internal Medicine Interventional Cardiology
DX: Z01.812 Encounter for preprocedural laboratory examination (principal); I25.10 Atherosclerotic heart disease of native coronary artery without angina pectoris
CPT/HCPCS: 36415; 80051; 82565; 84520; 85027

== ENCOUNTER 2022-05-25 12:04 | Emergency (ER) | payer MEDICARE ==
[2022-05-25 12:43] VITALS: BP 102/52; PULSE 89; RESP 20; TEMP 98
--- NOTE | 2022-05-25 13:18 | ED ---
Fall HPI - General Chief Complaint: Fall Stated Complaint: fall - eye injury Time Seen by Provider: 05/25/22 12:44 Source: patient, family, RN notes reviewed Mode of arrival: ambulatory - History of Present Illness Initial Comments: This is a 72-year-old male who presents to the emergency department for a fall. He does have mobility issues and usually requires assistance when moving around. He was trying to get up to use the restroom this morning, and his was not by his side. He was trying to move around on his own, and subsequently fell and hit his head on the TV stand. Currently has pain and swelling to the left eye. He also injured his left pinky finger. Denies being on any blood thinners. Pain is only mild at this time. He did not lose consciousness and did not otherwise have any symptoms prior to the fall such as dizziness, shortness of breath, or chest pain. Denies any fevers, chills, sore throat, cough, dyspnea, chest pain, palpitations , abdominal pain, nausea, vomiting, diarrhea, or back pain. MD Complaint: fall Fall Witnessed: yes, by family Place Fall Occurred: home Loss of Consciousness: none Location: face, eyes Location - Extremities: Left: Hand (pinky finger) Context: tripped/slipped - Related Data Home Medications Medication Instructions Recorded Confirmed Albuterol Sulfate [Proair Hfa] 2 puff INHALATION RT-Q6H PRN 04/04/15 05/25/22 Cyanocobalamin [Vitamin B-12] 500 mcg PO DAILY 06/08/15 05/25/22 traMADol HCL [Ultram] 50 mg PO TID PRN 03/06/19 05/25/22 Ascorbic Acid [Vitamin C] 500 mg PO DAILY 08/05/20 05/25/22 Aspirin EC [Ecotrin Low Dose] 81 mg PO DAILY 08/05/20 05/25/22 Brinzolamide [Azopt 1% Ophth Susp] 1 drop BOTH EYES BID 08/05/20 05/25/22 Cholecalciferol [Vitamin D3 (25 50 mcg PO DAILY 08/05/20 05/25/22 Mcg = 1000 Iu)] Ferrous Sulfate [Iron (65 MG 325 mg PO DAILY 08/05/20 05/25/22 Elemental)] SILVER sulfADIAZINE Cream 1 applic TOPICAL BID PRN 08/05/20 05/25/22 [Silvadene 1% Cream] Travoprost [Travoprost 0.004%] 1 drop BOTH EYES HS 08/05/20 05/25/22 amLODIPine [Norvasc] 5 mg PO DAILY 08/05/20 05/25/22 hydroCHLOROthiazide [Hydrodiuril] 25 mg PO DAILY 08/05/20 05/25/22 Pregabalin [Lyrica] 150 mg PO TID 09/24/20 05/25/22 Acetaminophen with Codeine 1 tab PO Q4H 05/25/22 05/25/22 [Acetaminophen-Cod #3 Tablet] Atorvastatin [Lipitor] 20 mg PO HS 05/25/22 05/25/22 DULoxetine HCL [Cymbalta] 60 mg PO DAILY 05/25/22 05/25/22 Erythromycin Ophth Oint [Romycin 1 applic BOTH EYES HS 05/25/22 05/25/22 Ophth Oint] Furosemide [Lasix] 20 mg PO DAILY 05/25/22 05/25/22 Ibuprofen 800 mg PO Q8H 05/25/22 05/25/22 Isosorbide Mononitrate ER [Imdur] 30 mg PO DAILY 05/25/22 05/25/22 Vitamin B Complex 1 cap PO DAILY 05/25/22 05/25/22 lisinopriL [Zestril] 5 mg PO DAILY 05/25/22 05/25/22 metFORMIN HCL 500 mg PO BID 05/25/22 05/25/22 Allergies Allergy/AdvReac Type Severity Reaction Status Date / Time amoxicillin Allergy Rash/Hives Verified 05/25/22 14:46 hydrocodone bitartrate Allergy Rash/Hives Verified 05/25/22 12:43 [From Vicodin] Penicillins Allergy Rash/Hives Verified 05/25/22 14:46 cortisone AdvReac Abdominal Verified 05/25/22 12:43 Pain NSAIDS (Non-Steroidal AdvReac Abdominal Verified 05/25/22 12:43 Anti-Inflamma Pain prednisone AdvReac Abdominal Verified 05/25/22 12:43 Pain Review of Systems ROS Statement: Those systems with pertinent positive or pertinent negative responses have been documented in the HPI. ROS Other: All systems not noted in ROS Statement are negative. Past Medical History Past Medical History: Asthma, Eye Disorder, Hyperlipidemia, Hypertension, Osteoarthritis (OA), Pulmonary Embolus (PE) Additional Past Medical History / Comment(s): COVID 19 infection April, BILAT GLAUCOMA AND CATARACTS, obesity History of Any Multi-Drug Resistant Organisms: None Reported Past Surgical History: Bariatric Surgery, Cholecystectomy, Hernia Repair, Orthopedic Surgery, Tonsillectomy Additional Past Surgical History / Comment(s): ANAL FISSURE REMOVED. RT ROTATOR CUFF REPAIR. LAP BAND IN AND THEN REMOVED. WARTS REMOVED FROM LOWER EXTREMIES. COLONOSCOPY. SURGERY BILAT EYES FOR CATARACTS AND GLAUCOMA. EGD. RT KNEE SCOPE Past Anesthesia/Blood Transfusion Reactions: No Reported Reaction Additional Past Anesthesia/Blood Transfusion Reaction / Comment(s): Pt has never received blood. Past Psychological History: No Psychological Hx Reported Smoking Status: Never smoker Past Alcohol Use History: None Reported Past Drug Use History: None Reported - Past Family History Mother Family Medical History: Unable to Obtain Additional Family Medical History / Comment(s): FAMILY HX UNKNOWN PT IN FOSTER CARE CHILD Father History Unknown: Yes Family Medical History: Unable to Obtain Additional Family Medical History / Comment(s): Pt raised in foster care. General Exam Limitations: no limitations General appearance: alert Eye exam: Present: other (Orbital and periorbital swelling and ecchymosis. Conjunctival hemorrhage. No tenderness. Extraocular movements are intact.) ENT exam: Present: normal exam, mucous membranes moist, TM's normal bilaterally, normal external ear exam Respiratory exam: Present: normal lung sounds bilaterally. Absent: respiratory distress, wheezes, rales, rhonchi, stridor Cardiovascular Exam: Present: regular rate, normal rhythm, normal heart sounds. Absent: systolic murmur, diastolic murmur, rubs, gallop, clicks Extremities exam: Present: other (Minor swelling and ecchymosis to the left pinky finger. Full active and passive range of motion.) Neurological exam: Present: alert, oriented X3, CN II-XII intact Psychiatric exam: Present: normal affect, normal mood Skin exam: Present: warm, dry, intact, normal color. Absent: rash Course Vital Signs 05/25/22 12:40 Temperature 98 F Pulse Rate 89 Respiratory 20 Rate Blood Pressure 102/52 O2 Sat by Pulse 96 Oximetry Medical Decision Making - Medical Decision Making This is a 72-year-old male who presents to the emergency department for a fall. Computed tomography scan of the brain and facial bones obtained. My interpretation of the facial bone computed tomography scan reveals left periorbital swelling and no signs of an orbital fracture. My interpretation of the computed tomography scan of the brain reveals no evidence of intracranial hemorrhage or skull fracture. X-ray of the left pinky finger and cervical spine were obtained as well. On the x-ray of the left pinky finger, my interpretation identifies no signs of fractures or dislocations. My interpretation of the x- ray of the C-spine also reveals no signs of acute fractures, however there are degenerative changes. Instructed the patient to apply ice for around 10 minutes every 2-3 hours, and after around 3 days, transition to heat. Advised very gentle pressure with the ice to avoid putting excess pressure on the eye. Fall precautions reviewed with the patient, and I instructed him to avoid trying to move around without assistance. Return precautions reviewed in depth, the patient is instructed to return to the emergency department with any new, worsening, or concerning symptoms. Patient verbalized understanding. This case was discussed in detail with the attending ED physician. Presentation, findings, and treatment plan discussed in detail as well. - Radiology Data Radiology results: report reviewed, image reviewed Disposition Clinical Impression: Fall, Contusion, eye, left, Contusion of left little finger Disposition: HOME SELF-CARE Instructions (If sedation given, give patient instructions): Black Eye (ED), Fall Prevention for Older Adults (ED), Hematoma (ED) Additional Instructions: Return to the emergency department with any new, worsening, or concerning symptoms. Avoid trying to get up on your own. Apply ice to the eye area for approximately 10 minutes every 2-3 hours. Use very gentle pressure to avoid pressing excessively on the eye. After around 3 days, switch to heat. Follow up with your primary care provider in 1-2 days. Is patient prescribed a controlled substance at d/c from ED?: No Referrals: Tito Monroe MD [Primary Care Provider] - 1-2 days
--- NOTE | 2022-05-25 13:20 | XR ---
EXAMINATION TYPE: XR finger LT DATE OF EXAM: 05/25/2022 COMPARISON: None HISTORY: Pinky injury from fall TECHNIQUE: 3 view left fifth digit FINDINGS: No acute fracture or dislocation is evident. Advanced degenerative joint changes are within the distal interphalangeal joint space. Mild degenerative changes within the proximal interphalangea l joint space. Follow up exams can be performed 7-10 days from acute trauma for continued pain. IMPRESSION: 1. Degenerative joint changes distal interphalangeal joint space.
--- NOTE | 2022-05-25 13:35 | CT ---
EXAMINATION TYPE: CT brain wo con DATE OF EXAM: 05/25/2022 COMPARISON: 03/06/2019 HISTORY: 72-year-old male with injury after fall, pain. TECHNIQUE: Examination was done in axial plane without intravenous contrast. Coronal and sagittal r econstructions performed. CT DLP: 1107.4 mGycm Automated exposure control for dose reduction was used. FINDINGS: There is no evidence of acute intracranial hemorrhage, acute ischemic changes, mass, mass-effect, or extra-axial fluid collection. There is no effacement of cerebral sulci or basal subarachnoid cister ns. There is no hydrocephalus. There is no midline shift. Venegas-white matter distinction is preserv ed. No calvarial fracture. Mild to moderate volume loss overlying the bilateral cerebral convexities. Mastoid air cells well pneumatized. Facial bones reported separately. IMPRESSION: No acute intracranial abnormality seen. Moderate atrophy overlying the bilateral cerebral convexities . Facial bones reported separately.
--- NOTE | 2022-05-25 13:40 | CT ---
EXAMINATION TYPE: CT facial bones wo con DATE OF EXAM: 05/25/2022 COMPARISON: None HISTORY: 72-year-old male with pain and injury after fall TECHNIQUE: Contiguous axial scanning of the facial bones without IV contrast. Coronal and sagittal re constructions performed. CT DLP: 1107.4 mGycm Automated exposure control for dose reduction was used. FINDINGS: The visualized mandible, TMJ, pterygoid plates, zygomatic arches appear intact. There is prominent left periorbital and left facial soft tissue swelling and hematoma. Underlying morgan bes appear symmetric. No post septal abnormality is seen. There is a round 1.1 cm density in the anterior right nasal cavity. This could represent a polyp or t hick mucoid debris. Leftward nasal septal deviation. No facial bone or nasal bone fracture seen. Orbits appear intact. IMPRESSION: LEFT PERIORBITAL AND LEFT FACIAL SOFT TISSUE SWELLING AND SOFT TISSUE HEMATOMA. NO UNDERLYING ACUTE F ACIAL BONE FRACTURE SEEN.
--- NOTE | 2022-05-25 14:40 | XR ---
EXAMINATION TYPE: XR cervical spine limited DATE OF EXAM: 05/25/2022 COMPARISON: None HISTORY: Fall TECHNIQUE: 3 view cervical spine FINDINGS: Facet degenerative changes are within the mid cervical spine. Prevertebral space is normal. Anterior vertebral body spurring is present C5-C6. Posterior spinal lamellar line is intact. Subment al vertex view appears normal. Follow up exams can be performed as clinically indicated. Some vascular calcification may be present within the carotid bifurcation regions. IMPRESSION: 1. Mild degenerative changes mid cervical spine.
== END 2022-05-25 15:00 | disposition home or self-care (01) ==
LOC: SUPCPDRO 12:04 → EC 12:04
DX: S05.12XA Contusion of eyeball and orbital tissues, left eye, initial encounter (principal); S60.052A Contusion of left little finger without damage to nail, initial encounter; J45.909 Unspecified asthma, uncomplicated; I10 Essential (primary) hypertension; E78.5 Hyperlipidemia, unspecified; M19.90 Unspecified osteoarthritis, unspecified site; Z88.0 Allergy status to penicillin; Z88.6 Allergy status to analgesic agent; Z88.5 Allergy status to narcotic agent; Z88.8 Allergy status to other drugs, medicaments and biological substances; Z79.899 Other long term (current) drug therapy; Z79.82 Long term (current) use of aspirin; W01.198A Fall on same level from slipping, tripping and stumbling with subsequent striking against other object, initial encounter
CPT/HCPCS: 70450; 70486; 72040; 99284

== ENCOUNTER 2022-06-01 05:54 | Day surgery (SDC) | payer MEDICARE ==
[2022-06-01] MEDS ORDERED: NITROGLYCERIN SL TABS 0.4 MG TAB SUBLINGUAL PRN (05:56)
[2022-06-01] MEDS ORDERED: ALPRAZolam 0.25 MG TAB PO PRN (05:56)
[2022-06-01] MEDS ORDERED: ALPRAZolam 0.5 MG TAB PO PRN (05:56)
[2022-06-01] MEDS ORDERED: SODIUM CHLORIDE 0.9% 1,000 ML in EMPTY BAG 1 BAG IV SCH (05:56)
[2022-06-01] MEDS ORDERED: SODIUM CHLORIDE 0.9% 1,000 ML IV ONE (06:13)
[2022-06-01 06:29] LABS: Glucose,Whole Blood 174 mg/dL (70-110)
[2022-06-01 06:39] VITALS: TEMP 98.3
[2022-06-01] MEDS ORDERED: ASPIRIN 325 MG TAB PO ONE (07:00)
[2022-06-01] MEDS ORDERED: ATORVASTATIN 80 MG TAB PO ONE (07:00)
[2022-06-01] MEDS ORDERED: HEPARIN SODIUM,PORCINE 2,500 UNIT in SODIUM CHLORIDE 0.9% 250 ML IRRIGATION PRN (07:00)
[2022-06-01] MEDS ORDERED: HEPARIN SODIUM,PORCINE 10,000 UNIT in SODIUM CHLORIDE 0.9% 1,000 ML IRRIGATION PRN (07:00)
[2022-06-01 07:08] LABS: Basophils # (A) 0.1 k/uL (0-0.2); Basophils % (A) 1 %; Eosinophils # (A) 0.5 k/uL (0-0.7); Eosinophils % (A) 4 %; HGB 12.3 gm/dL (13.0-17.5); Lymphocytes # (A) 2.7 k/uL (1.0-4.8); Lymphocytes % (A) 23 %; MCHC 35.2 g/dL (31.0-37.0); MCV 90.9 fL (80.0-100.0); Mean Platelet Volume 8.3; Monocytes # (A) 0.6 k/uL (0-1.0); Monocytes % (A) 5 %; Neutrophils # (A) 7.9 k/uL (1.3-7.7); Neutrophils % (A) 65 %; Platelet Count 247 k/uL (150-450); Poikilocytosis Slight; RBC 3.86 m/uL (4.30-5.90); RDW 13.9 % (11.5-15.5)
[2022-06-01] MEDS ORDERED: fentaNYL (PF) 50 MCG/ML 2 ML AMP ONE (07:26)
[2022-06-01] MEDS ORDERED: VERAPAMIL 2.5 MG/ML 2 ML AMP ONE (07:26)
[2022-06-01] MEDS ORDERED: HEPARIN SODIUM 1,000 UN/ML (10ML VL) ONE (07:26)
[2022-06-01] MEDS ORDERED: fentaNYL (PF) 50 MCG/ML 2 ML AMP IV ONE (07:35)
[2022-06-01] MEDS ORDERED: LIDOCAINE 1% INJ 10MG/ML (5 ML VIAL-PF) SQ ONE (07:37)
[2022-06-01] MEDS ORDERED: VERAPAMIL SYRINGE (5 MG/10 ML) INTRAARTER ONE (07:40)
[2022-06-01] MEDS ORDERED: HEPARIN SODIUM 1,000 UN/ML (10ML VL) IV ONE (07:48)
[2022-06-01] MEDS ORDERED: IOPAMIDOL-370 100ML BTL INJ ONE (07:57)
[2022-06-01] MEDS ORDERED: RX INFO: IV CONTRAST WAS GIVEN 1 EACH MISC MISCELLANE PRN (08:10)
[2022-06-01] MEDS ORDERED: ALBUTEROL NEBULIZED 2.5 MG/3 ML INHALATION PRN (08:11)
[2022-06-01] MEDS ORDERED: traMADol 50 MG TAB PO PRN (08:11)
[2022-06-01] MEDS ORDERED: SODIUM CHLORIDE 0.9% 1,000 ML IV SCH (08:15)
--- NOTE | 2022-06-01 08:18 | P.CARDCATH ---
Date of Procedure: 06/01/22 Description of Procedure: Cardiac Catheterization: The patient is a 72-year-old male with a known history of coronary disease, hypertension, hyperlipidemia and diabetes who has been complaining of episodes of chest discomfort and dyspnea on exertion. Recommendations were made regarding cardiac catheterization, the risks and the complications were discussed with the patient who is in full understanding and agreement. Procedure Description: Patient was brought to lab tester in fasting semi-sedated state after receiving Fentanyl and Benadryl achieiving moderate conscious sedated state. Using Xylocaine Anesthesia and Seldinger technique, a 6-Palestinian sheath was introduced in the right radial artery . Subsequently, selective coronary angiography was performed using a 5-Palestinian 3.5 bend left Adrianna and 5-Palestinian right Adrianna catheter. Multiple views of the coronary artery including hemiaxial views were obtained. The right Adrianna catheter was used to cross the aortic valve and LVEDP was calculated. Following that, catheter and sheath were removed. Hemostasis was obtained with deployment of TR band . There was no immediate complication. Patient was returned to room in stable condition. Of note, the patient received a total of 5000 units of intravenous heparin as well as intra-arterial verapamil. Findings: Fluoroscopy: Calcifications of the coronary arteries was noted Left main: This is a large size vessel, bifurcating into LAD and left circumflex, left main has no high-grade stenosis LAD: This is a large size vessel, tapers down in the distal third gives rise to 2 diagonal branch. The mid LAD has 20-30% plaque with no high-grade stenosis Left circumflex: This is a nondominant vessel large in caliber giving rise to 2 obtuse marginal branch the left circumflex and its branches have no evidence of obstructive disease. RCA: This is a large dominant vessel bifurcating distally to PDA and PLV, calcified in the proximal segment. The proximal RCA has a 20% plaque and about 40% close to the ostium, the distal vessel has mild disease of 20-30% Left Ventriculogram: Not performed Hemodynamics: There was no gradient across the aortic valve, LVEDP was 16-18 mmHg Conclusion: 1. Calcified coronary arteries 2. Mild disease in the LAD 3. Moderate disease in the proximal and ostial RCA 4. Right dominance Recommendations: I have recommended to continue medical therapy with aggressive coronary risks modifications. The findings and the recommendations were discussed with the pat ient and the family and they were in full understanding and agreement. Duration of sedation is 20 minutes.
[2022-06-01] MEDS ORDERED: ISOSORBIDE MONONITRATE ER 30 MG TAB.ER.24H PO SCH (09:00)
[2022-06-01] MEDS ORDERED: CHOLECALCIFEROL 25 MCG (1000 IU) TABLET PO SCH (09:00)
[2022-06-01] MEDS ORDERED: DULoxetine HCL 60 MG CAPSULE.DR PO SCH (09:00)
[2022-06-01] MEDS ORDERED: lisinopriL 5 MG TAB PO SCH (09:00)
[2022-06-01] MEDS ORDERED: FERROUS SULFATE 325 MG TAB PO SCH (09:00)
[2022-06-01] MEDS ORDERED: NON FORMULARY DRUG (Vitamin B Complex [Vitamin B Complex] 1 EACH Capsule) PO SCH (09:00)
[2022-06-01] MEDS ORDERED: amLODIPine 5 MG TAB PO SCH (09:00)
[2022-06-01 13:20] VITALS: BP 132/60; PULSE 72; RESP 18
[2022-06-01] MEDS ORDERED: PREGABALIN 75 MG CAP PO SCH (16:00)
[2022-06-01] MEDS ORDERED: LATANOPROST 0.005% OPHTH DROPS 2.5 ML BTL BOTH EYES SCH (21:00)
[2022-06-01] MEDS ORDERED: ATORVASTATIN 20 MG TAB PO SCH (21:00)
[2022-06-01] MEDS ORDERED: DORZOLAMIDE HCL 2% DROPS 10 ML BTL BOTH EYES SCH (21:00)
[2022-06-02] MEDS ORDERED: ASPIRIN 81 MG PO SCH (09:00)
== END 2022-06-01 12:01 | disposition home or self-care (01) ==
LOC: CATHCVL 05:54
PROVIDERS: ATTEND Internal Medicine Interventional Cardiology
DX: I25.10 Atherosclerotic heart disease of native coronary artery without angina pectoris (principal); I10 Essential (primary) hypertension; E78.5 Hyperlipidemia, unspecified; E11.9 Type 2 diabetes mellitus without complications; Z79.84 Long term (current) use of oral hypoglycemic drugs; M19.90 Unspecified osteoarthritis, unspecified site; Z87.891 Personal history of nicotine dependence; Z79.01 Long term (current) use of anticoagulants; Z79.52 Long term (current) use of systemic steroids; Z79.82 Long term (current) use of aspirin; Z79.811 Long term (current) use of aromatase inhibitors; Z79.899 Other long term (current) drug therapy; Z88.5 Allergy status to narcotic agent; Z88.6 Allergy status to analgesic agent; Z88.0 Allergy status to penicillin; Z88.8 Allergy status to other drugs, medicaments and biological substances
CPT/HCPCS: 93458; 85025; C1769 ×3; C1894; J2001; J3010; J1644; Q9967

== ENCOUNTER → 2022-10-16 | Outpatient (CLI) | payer MEDICARE ==
[2022-10-16 11:14] LABS: ALT 17 U/L (10-49); AST 13 U/L (14-35); African American GFR (CKD) 86.2 (60.0-200.0); Albumin/Globulin Ratio 1.74 (1.60-3.17); Alkaline Phosphatase 74 U/L (41-126); Blood Urea Nitrogen 19.1 mg/dL (9.0-27.0); Calcium 9.4 mg/dL (8.7-10.3); Carbon Dioxide 30.7 mmol/L (20.0-27.5); Chloride 100 mmol/L (96-109); Chol/HDL Ratio 3.03 Ratio; Globulin 2.3 g/dL (1.6-3.3); Glucose 189 mg/dL (70-110); LDL Cholesterol,Calculated 80.5 mg/dL (0.0-131.0); Non-African American GFR(CKD) 74.3 (60.0-200.0); Potassium 3.9 mmol/L (3.5-5.5); Sodium 139 mmol/L (135-145); Total Protein 6.3 g/dL (6.2-8.2)
== END | disposition home or self-care (01) ==
LOC: LABWHC1 07:52
PROVIDERS: ATTEND Internal Medicine Interventional Cardiology
DX: E78.2 Mixed hyperlipidemia (principal)
CPT/HCPCS: 36415; 80053; 80061

== ENCOUNTER 2023-01-27 13:47 | Emergency (ER) | payer MEDICARE ==
[2023-01-27 13:56] VITALS: RESP 18
[2023-01-27 13:58] LABS: Glucose,Whole Blood 227 mg/dL (70-110)
[2023-01-27] MEDS ORDERED: SODIUM CHLORIDE 0.9% 1,000 ML IV ONE (14:31)
--- NOTE | 2023-01-27 14:36 | ED ---
General Adult HPI - General Chief complaint: Recheck/Abnormal Lab/Rx Stated complaint: hyperglycemia Time Seen by Provider: 01/27/23 14:12 Source: patient, family, RN notes reviewed Mode of arrival: wheelchair Limitations: no limitations - History of Present Illness Initial comments: 73-year-old male presents to the emergency department chief complaint of hyperglycemia. He is a type II diabetic and is on metformin. He states that he is not on insulin. He reports his blood sugars in the high 200s today and yesterday. Admits to diarrhea for the past 2 days. He reports urinary frequency and increased thirst. - Related Data Home Medications Medication Instructions Recorded Confirmed Albuterol Sulfate [Proair Hfa] 2 puff INHALATION RT-Q6H PRN 04/04/15 01/27/23 traMADol HCL [Ultram] 50 mg PO TID PRN 03/06/19 01/27/23 Aspirin EC [Ecotrin Low Dose] 81 mg PO DAILY 08/05/20 01/27/23 Brinzolamide [Azopt 1% Ophth Susp] 1 drop BOTH EYES BID 08/05/20 01/27/23 Cholecalciferol [Vitamin D3 (25 50 mcg PO DAILY 08/05/20 01/27/23 Mcg = 1000 Iu)] Ferrous Sulfate [Iron (65 MG 325 mg PO DAILY 08/05/20 01/27/23 Elemental)] SILVER sulfADIAZINE Cream 1 applic TOPICAL DAILY 08/05/20 01/27/23 [Silvadene 1% Cream] amLODIPine [Norvasc] 5 mg PO DAILY 08/05/20 01/27/23 hydroCHLOROthiazide [Hydrodiuril] 25 mg PO DAILY 08/05/20 01/27/23 Pregabalin [Lyrica] 150 mg PO TID 09/24/20 01/27/23 Atorvastatin [Lipitor] 20 mg PO HS 05/25/22 01/27/23 DULoxetine HCL [Cymbalta] 60 mg PO DAILY 05/25/22 01/27/23 Furosemide [Lasix] 20 mg PO DAILY 05/25/22 01/27/23 Isosorbide Mononitrate ER [Imdur] 30 mg PO DAILY 05/25/22 01/27/23 Vitamin B Complex 1 cap PO DAILY 05/25/22 01/27/23 Ascorbic Acid [Vitamin C] 1,000 mg PO DAILY 08/14/22 01/27/23 Cyanocobalamin (Vitamin B-12) 1,000 mcg PO DAILY 08/14/22 01/27/23 [Vitamin B-12] Fluticasone Propionate 110 Mcg 1 puff INHALATION RT-BID 08/14/22 01/27/23 [Flovent 110 Mcg Inhaler] Latanoprost [Latanoprost 0.005%] 1 drop BOTH EYES HS 08/14/22 01/27/23 metFORMIN HCL [Glucophage] 850 mg PO BID 08/14/22 01/27/23 Folic Acid 0.4 mg PO DAILY 01/27/23 01/27/23 Hydrocortisone Cream 1 applic TOPICAL BID 01/27/23 01/27/23 [Hydrocortisone 2.5% Cream] Ketoconazole 2% Cream [Nizoral 2%] 1 applic TOPICAL BID 01/27/23 01/27/23 Losartan [Cozaar] 25 mg PO DAILY 01/27/23 01/27/23 Meloxicam [Mobic] 15 mg PO DAILY 01/27/23 01/27/23 Mupirocin 2% Oint [Bactroban 2% 1 applic TOPICAL BID PRN 01/27/23 01/27/23 Oint] Allergies Allergy/AdvReac Type Severity Reaction Status Date / Time amoxicillin Allergy Rash/Hives Verified 01/27/23 15:53 hydrocodone bitartrate Allergy Rash/Hives Verified 01/27/23 15:53 [From Vicodin] Penicillins Allergy Rash/Hives Verified 01/27/23 15:53 cortisone AdvReac Abdominal Verified 01/27/23 15:53 Pain NSAIDS (Non-Steroidal AdvReac Abdominal Verified 01/27/23 15:53 Anti-Inflamma Pain prednisone AdvReac Abdominal Verified 01/27/23 15:53 Pain Review of Systems ROS Statement: Those systems with pertinent positive or pertinent negative responses have been documented in the HPI. ROS Other: All systems not noted in ROS Statement are negative. Past Medical History Past Medical History: Asthma, Diabetes Mellitus, Eye Disorder, Hyperlipidemia, Hypertension, Neurologic Disorder, Osteoarthritis (OA), Pulmonary Embolus (PE), Skin Disorder Additional Past Medical History / Comment(s): COVID 19 infection April 2021 blood clots with covid, BILAT GLAUCOMA , obesity redness and moisture to skin folds uses silvadene, neuropathy in legs, swelling in lower legs, warts to lower legs. recent root canal. History of Any Multi-Drug Resistant Organisms: None Reported Past Surgical History: Bariatric Surgery, Cholecystectomy, Heart Catheterization , Hernia Repair, Orthopedic Surgery, Tonsillectomy Additional Past Surgical History / Comment(s): ANAL FISSURE REMOVED, cataract removal with lense implants, abdominal hernia repair. RT ROTATOR CUFF REPAIR. LAP BAND IN AND THEN REMOVED. WARTS REMOVED FROM LOWER EXTREMIES. COLONOSCOPY. SURGERY BILAT EYES FOR CATARACTS AND GLAUCOMA. EGD. RT KNEE SCOPE Past Anesthesia/Blood Transfusion Reactions: No Reported Reaction Additional Past Anesthesia/Blood Transfusion Reaction / Comment(s): Pt has never received blood. Past Psychological History: No Psychological Hx Reported Smoking Status: Never smoker - Past Family History Mother Family Medical History: Unable to Obtain Additional Family Medical History / Comment(s): FAMILY HX UNKNOWN PT IN FOSTER CARE CHILD Father History Unknown: Yes Family Medical History: Unable to Obtain Additional Family Medical History / Comment(s): Pt raised in foster care. General Exam Limitations: no limitations General appearance: alert, in no apparent distress Head exam: Present: atraumatic, normocephalic, normal inspection Eye exam: Present: normal appearance, PERRL, EOMI. Absent: scleral icterus, conjunctival injection, periorbital swelling ENT exam: Present: normal exam, mucous membranes moist Neck exam: Present: normal inspection. Absent: tenderness, meningismus, lymphadenopathy Respiratory exam: Present: normal lung sounds bilaterally. Absent: respiratory distress, wheezes, rales, rhonchi, stridor Cardiovascular Exam: Present: regular rate, normal rhythm, normal heart sounds. Absent: systolic murmur, diastolic murmur, rubs, gallop, clicks GI/Abdominal exam: Present: soft, normal bowel sounds. Absent: distended, tenderness, guarding, rebound, rigid Extremities exam: Present: normal inspection, full ROM, normal capillary refill. Absent: tenderness, pedal edema, joint swelling, calf tenderness Back exam: Present: normal inspection Neurological exam: Present: alert, oriented X3 Psychiatric exam: Present: normal affect, normal mood Skin exam: Present: warm, dry, intact, normal color, rash (chronic rash in ) Course Vital Signs 01/27/23 01/27/23 13:53 17:11 Temperature 98.9 F 97.9 F Pulse Rate 84 72 Respiratory 18 18 Rate Blood Pressure 137/83 142/78 O2 Sat by Pulse 95 98 Oximetry Medical Decision Making - Medical Decision Making Was pt. sent in by a medical professional or institution ([facility]AGD[facility] Albarado, SHIP SCRAPER, urgent care, hospital, or shelter...) When possible be specific @ -No Did you speak to anyone other than the patient for history (EMS, parent, family, police, friend...)? What history was obtained from this source @ -No Did you review nursing and triage notes (agree or disagree)? Why? @ -I reviewed and agree with nursing and triage notes Were old charts reviewed (outside hosp., previous admission, EMS record, old EKG, old radiological studies, urgent care reports/EKG's, shelter records)? Report findings @ -No old charts were reviewed Differential Diagnosis (chest pain, altered mental status, abdominal pain women, abdominal pain men, vaginal bleeding, weakness, fever, dyspnea, syncope, headache, dizziness, GI bleed, back pain, seizure, CVA, palpatations, mental health, musculoskeletal)? @ -not applicable EKG interpreted by me (3pts min.). @ -EKG shows 1516 sinus rhythm rate 74, MS 204, QRS 129 X-rays interpreted by me (1pt min.). @ -None done CT interpreted by me (1pt min.). @ -None done U/S interpreted by me (1pt. min.). @ -None done What testing was considered but not performed or refused? (CT, X-rays, U/S, labs)? Why? @ -None What meds were considered but not given or refused? Why? @ -None Did you discuss the management of the patient with other professionals (professionals i.e. JAGDISH Albarado, SHIP SCRAPER, lab, RT, psych nurse, social media sr strategy manager, underwriting internship, teacher, operations officer, case operator)? Give summary @ -No Was smoking cessation discussed for >3mins.? @ -No Was critical care preformed (if so, how long)? @ -No Were there social determinants of health that impacted care today? How? (Homelessness, low income, unemployed, alcoholism, drug addiction, transportation, low edu. Level, literacy, decrease access to med. care, snf, rehab)? @ -No Was there de-escalation of care discussed even if they declined (Discuss DNR or withdrawal of care, Hospice)? DNR status @ -No What co-morbidities impacted this encounter? (DM, HTN, Smoking, COPD, CAD, Cancer, CVA, ARF, Chemo, Hep., AIDS, mental health diagnosis, sleep apnea, morbid obesity)? @ -None Was patient admitted / discharged? Hospital course, mention meds given and route, prescriptions, significant lab abnormalities, going to OR and other pertinent info. @ -Discharged. Patient sent to the emergency department with chief complaint of hyperglycemia. He reports blood sugars of 250 at home. He takes metformin he does not take insulin. He reports no recent fever, illness. Denies cough. He admits to diarrhea 2 days. Blood work was obtained which showed CBC showed WBC 11.5, hemoglobin 12.5; sodium 136, potassium 3.8, glucose 229; UA showed small blood; negative acetone, negative for Covid, influenza, RSV. There is no obvious source of infection. Patient was given a liter of fluids. Patient was advised that he should follow up with his primary care provider for further management of his hyperglycemia. Patient stable condition. Case is discussed with attending, Dr. Webber Undiagnosed new problem with uncertain prognosis? @ -No Drug Therapy requiring intensive monitoring for toxicity (Heparin, Nitro, Insul in, Cardizem)? @ -No Were any procedures done? @ -No Diagnosis/symptom? @ -hyperglycemia Acute, or Chronic, or Acute on Chronic? @ -acute Uncomplicated (without systemic symptoms) or Complicated (systemic symptoms)? @ -uncomplicated Side effects of treatment? @ -No Exacerbation, Progression, or Severe Exacerbation? @ -No Poses a threat to life or bodily function? How? (Chest pain, [place], [place], pneumonia, PE, COPD, DKA, ARF, appy, cholecystitis, CVA, Diverticulitis, Homicidal, Suicidal, threat to staff... and all critical care pts) @ -No - Lab Data Result diagrams: 01/27/23 14:48 01/27/23 14:48 Lab Results 01/27/23 01/27/23 01/27/23 Range/Units 13:57 14:48 14:48 WBC 11.5 H (3.8-10.6) k/uL RBC 4.06 L (4.30-5.90) m/uL Hgb 12.5 L (13.0-17.5) gm/dL Hct 36.7 L (39.0-53.0) % MCV 90.4 (80.0-100.0) fL MCH 30.9 (25.0-35.0) pg MCHC 34.2 (31.0-37.0) g/dL RDW 15.0 (11.5-15.5) % Plt Count 190 (150-450) k/uL MPV 7.9 Neutrophils % 79 % Lymphocytes % 12 % Monocytes % 4 % Eosinophils % 3 % Basophils % 1 % Neutrophils # 9.1 H (1.3-7.7) k/uL Lymphocytes # 1.3 (1.0-4.8) k/uL Monocytes # 0.5 (0-1.0) k/uL Eosinophils # 0.4 (0-0.7) k/uL Basophils # 0.1 (0-0.2) k/uL Sodium (137-145) mmol/L Potassium (3.5-5.1) mmol/L Chloride (98-107) mmol/L Carbon Dioxide (22-30) mmol/L Anion Gap mmol/L BUN (9-20) mg/dL Creatinine (0.66-1.25) mg/dL Est GFR (CKD-EPI)AfAm (>60 ml/min/1.73 sqM) Est GFR (CKD-EPI)NonAf (>60 ml/min/1.73 sqM) Glucose (74-99) mg/dL POC Glucose (mg/dL) 227 H (70-110) mg/dL POC Glu Shuttle Driver ID Ngozi Lizarraga Calcium (8.4-10.2) mg/dL Total Bilirubin (0.2-1.3) mg/dL AST (17-59) U/L ALT (4-49) U/L Alkaline Phosphatase (38-126) U/L Total Protein (6.3-8.2) g/dL Albumin (3.5-5.0) g/dL Urine Color Yellow Urine Appearance Clear (Clear) Urine pH 5.5 (5.0-8.0) Ur Specific [place] 1.026 (1.001-1.035) Urine Protein Trace H (Negative) Urine Glucose (UA) Negative (Negative) Urine Ketones Negative (Negative) Urine Blood Small H (Negative) Urine Nitrite Negative (Negative) Urine Bilirubin Negative (Negative) Urine Urobilinogen <2.0 (<2.0) mg/dL Ur Leukocyte Esterase Negative (Negative) Urine RBC 3 (0-5) /hpf Urine WBC 3 (0-5) /hpf Ur Squamous Epith Cells <1 (0-4) /hpf Urine Bacteria Rare H (None) /hpf Urine Mucus Rare H (None) /hpf Acetone, Qual (Negative) Influenza Type A (PCR) (Not Detectd) Influenza Type B (PCR) (Not Detectd) RSV (PCR) (Not Detectd) SARS-CoV-2 (PCR) (Not Detectd) 01/27/23 01/27/23 01/27/23 Range/Units 14:48 14:48 16:37 WBC (3.8-10.6) k/uL RBC (4.30-5.90) m/uL Hgb (13.0-17.5) gm/dL Hct (39.0-53.0) % MCV (80.0-100.0) fL MCH (25.0-35.0) pg MCHC (31.0-37.0) g/dL RDW (11.5-15.5) % Plt Count (150-450) k/uL MPV Neutrophils % % Lymphocytes % % Monocytes % % Eosinophils % % Basophils % % Neutrophils # (1.3-7.7) k/uL Lymphocytes # (1.0-4.8) k/uL Monocytes # (0-1.0) k/uL Eosinophils # (0-0.7) k/uL Basophils # (0-0.2) k/uL Sodium 136 L (137-145) mmol/L Potassium 3.8 (3.5-5.1) mmol/L Chloride 100 (98-107) mmol/L Carbon Dioxide 31 H (22-30) mmol/L Anion Gap 5 mmol/L BUN 14 (9-20) mg/dL Creatinine 0.84 (0.66-1.25) mg/dL Est GFR (CKD-EPI)AfAm >90 (>60 ml/min/1.73 sqM) Est GFR (CKD-EPI)NonAf 86 (>60 ml/min/1.73 sqM) Glucose 229 H (74-99) mg/dL POC Glucose (mg/dL) 215 H (70-110) mg/dL POC Glu Shuttle Driver ID Lizbeth Melo Calcium 9.1 (8.4-10.2) mg/dL Total Bilirubin 0.8 (0.2-1.3) mg/dL AST 19 (17-59) U/L ALT 19 (4-49) U/L Alkaline Phosphatase 71 (38-126) U/L Total Protein 6.4 (6.3-8.2) g/dL Albumin 3.4 L (3.5-5.0) g/dL Urine Color Urine Appearance (Clear) Urine pH (5.0-8.0) Ur Specific [place] (1.001-1.035) Urine Protein (Negative) Urine Glucose (UA) (Negative) Urine Ketones (Negative) Urine Blood (Negative) Urine Nitrite (Negative) Urine Bilirubin (Negative) Urine Urobilinogen (<2.0) mg/dL Ur Leukocyte Esterase (Negative) Urine RBC (0-5) /hpf Urine WBC (0-5) /hpf Ur Squamous Epith Cells (0-4) /hpf Urine Bacteria (None) /hpf Urine Mucus (None) /hpf Acetone, Qual Negative (Negative) Influenza Type A (PCR) Not Detected (Not Detectd) Influenza Type B (PCR) Not Detected (Not Detectd) RSV (PCR) Not Detected (Not Detectd) SARS-CoV-2 (PCR) Not Detected (Not Detectd) Disposition Clinical Impression: Hyperglycemia due to type 2 diabetes mellitus Disposition: HOME SELF-CARE Condition: Stable Additional Instructions: Follow up with your primary care provider. Please return to the emergency department for new or worsening symptoms. Is patient prescribed a controlled substance at d/c from ED?: No Referrals: None,Stated [Primary Care Provider] - 1-2 days Time of Disposition: 16:56
[2023-01-27 15:19] LABS: Appearance,Urine Clear (Clear); Bacteria,Urine Rare /hpf; Bilirubin,Urine Negative (Negative); Blood,Urine Small (Negative); Color,Urine Yellow; Glucose,Urine (UA) Negative (Negative); Ketones,Urine Negative (Negative); Leukocyte Esterase,Urine Negative (Negative); Mucus,Urine Rare /hpf; Nitrite,Urine Negative (Negative); PH, Urine 5.5 (5.0-8.0); Protein,Urine Trace (Negative); RBC,Urine 3 /hpf (0-5); Specific Gravity,Urine 1.026 (1.001-1.035); Squamous Epithelial Cell,Urine <1 /hpf (0-4); Urobilinogen,Urine <2.0 mg/dL (<2.0); WBC,Urine 3 /hpf (0-5)
[2023-01-27 15:31] LABS: ALT 19 U/L (4-49); AST 19 U/L (17-59); African American GFR (CKD) >90 (>60 ml/min/1.73 sqM); Albumin 3.4 g/dL (3.5-5.0); Alkaline Phosphatase 71 U/L (38-126); Anion Gap 5 mmol/L; Blood Urea Nitrogen 14 mg/dL (9-20); Calcium 9.1 mg/dL (8.4-10.2); Carbon Dioxide 31 mmol/L (22-30); Chloride 100 mmol/L (98-107); Glucose 229 mg/dL (74-99); Non-African American GFR(CKD) 86 (>60 ml/min/1.73 sqM); Potassium 3.8 mmol/L (3.5-5.1); Sodium 136 mmol/L (137-145); Total Bilirubin 0.8 mg/dL (0.2-1.3); Total Protein 6.4 g/dL (6.3-8.2)
[2023-01-27 15:53] LABS: Basophils # (A) 0.1 k/uL (0-0.2); Basophils % (A) 1 %; Eosinophils # (A) 0.4 k/uL (0-0.7); Eosinophils % (A) 3 %; HCT 36.7 % (39.0-53.0); HGB 12.5 gm/dL (13.0-17.5); Lymphocytes # (A) 1.3 k/uL (1.0-4.8); Lymphocytes % (A) 12 %; MCH 30.9 pg (25.0-35.0); MCHC 34.2 g/dL (31.0-37.0); MCV 90.4 fL (80.0-100.0); Mean Platelet Volume 7.9; Monocytes # (A) 0.5 k/uL (0-1.0); Monocytes % (A) 4 %; Neutrophils # (A) 9.1 k/uL (1.3-7.7); Neutrophils % (A) 79 %; Platelet Count 190 k/uL (150-450); RBC 4.06 m/uL (4.30-5.90); WBC 11.5 k/uL (3.8-10.6)
[2023-01-27 16:39] LABS: Glucose,Whole Blood 215 mg/dL (70-110)
--- NOTE | 2023-01-27 16:44 | XR ---
EXAMINATION TYPE: XR chest 2V DATE OF EXAM: 01/27/2023 COMPARISON: 08/14/2022 INDICATION: Cough TECHNIQUE: Single frontal view of the chest is obtained. FINDINGS: The heart size is normal. The pulmonary vasculature is normal. The lungs are clear. IMPRESSION: 1. No acute pulmonary process.
[2023-01-27 17:13] VITALS: BP 142/78; PULSE 72; TEMP 97.9
== END 2023-01-27 17:13 | disposition home or self-care (01) ==
LOC: EC 13:47
DX: E11.65 Type 2 diabetes mellitus with hyperglycemia (principal); E11.36 Type 2 diabetes mellitus with diabetic cataract; I10 Essential (primary) hypertension; J45.909 Unspecified asthma, uncomplicated; E78.5 Hyperlipidemia, unspecified; Z20.822 Contact with and (suspected) exposure to COVID-19; Z79.84 Long term (current) use of oral hypoglycemic drugs; Z79.51 Long term (current) use of inhaled steroids; Z79.82 Long term (current) use of aspirin; Z79.899 Other long term (current) drug therapy; Z88.0 Allergy status to penicillin; Z88.5 Allergy status to narcotic agent; Z88.8 Allergy status to other drugs, medicaments and biological substances; Z88.6 Allergy status to analgesic agent; Z90.49 Acquired absence of other specified parts of digestive tract
CPT/HCPCS: 36415; 71046; 80053; 81001; 82009; 85025; 87636; 93005; 96360; 96361; 99285

== ENCOUNTER → 2023-10-04 | Outpatient (CLI) | payer MEDICARE ==
[2023-10-04 16:41] LABS: BUN/Creat Ratio 24.67 Ratio (12.00-20.00); Blood Urea Nitrogen 22.2 mg/dL (9.0-27.0); Chol/HDL Ratio 2.76 Ratio; Glucose 183 mg/dL (70-110); LDL Cholesterol,Calculated 67.6 mg/dL (0.0-131.0)
[2023-10-04 16:42] LABS: ALT 13 U/L (10-49); AST 14 U/L (14-35); Albumin/Globulin Ratio 1.43 Ratio (1.60-3.17); Alkaline Phosphatase 84 U/L (41-126); Calcium 9.5 mg/dL (8.7-10.3); Chloride 101 mmol/L (96-109); Globulin 2.8 g/dL (1.6-3.3); Potassium 3.3 mmol/L (3.5-5.5); Sodium 142 mmol/L (135-145); Total Bilirubin 0.5 mg/dL (0.3-1.2); Total Protein 6.8 g/dL (6.2-8.2)
== END | disposition home or self-care (01) ==
LOC: LABWHC1 09:20
PROVIDERS: ATTEND Internal Medicine Interventional Cardiology
DX: E78.2 Mixed hyperlipidemia (principal)
CPT/HCPCS: 36415; 80053; 80061

== ENCOUNTER → 2023-12-04 | Outpatient (CLI) | payer MEDICARE ==
[2023-12-05 04:36] LABS: BUN/Creat Ratio 27.17 Ratio (12.00-20.00); Blood Urea Nitrogen 32.6 mg/dL (9.0-27.0); Calcium 9.3 mg/dL (8.7-10.3); Carbon Dioxide 27.1 mmol/L (21.6-31.8); Chloride 97 mmol/L (96-109); Glucose 186 mg/dL (70-110); Potassium 4.5 mmol/L (3.5-5.5); Sodium 139 mmol/L (135-145)
[2023-12-05 04:40] LABS: NT-Pro-B-Type Natriuretic Pept 47 pg/mL (0-125)
== END | disposition home or self-care (01) ==
LOC: LABWHC1 16:08
PROVIDERS: ATTEND Internal Medicine Interventional Cardiology
DX: R60.0 Localized edema (principal); R06.02 Shortness of breath
CPT/HCPCS: 36415; 80048; 83880

== ENCOUNTER → 2024-04-01 | Outpatient (CLI) | payer MEDICARE ==
[2024-04-01 15:26] LABS: ALT 12 U/L (10-49); AST 14 U/L (14-35); Albumin 3.9 g/dL (3.8-4.9); Albumin/Globulin Ratio 1.39 Ratio (1.60-3.17); Alkaline Phosphatase 79 U/L (41-126); BUN/Creat Ratio 18.56 Ratio (12.00-20.00); Blood Urea Nitrogen 16.7 mg/dL (9.0-27.0); Calcium 9.4 mg/dL (8.7-10.3); Carbon Dioxide 26.6 mmol/L (21.6-31.8); Chloride 103 mmol/L (96-109); Chol/HDL Ratio 2.81 Ratio; Globulin 2.8 g/dL (1.6-3.3); Glucose 122 mg/dL (70-110); LDL Cholesterol,Calculated 54.4 mg/dL (0.0-131.0); Potassium 3.9 mmol/L (3.5-5.5); Sodium 141 mmol/L (135-145); Total Bilirubin 0.5 mg/dL (0.3-1.2); Total Protein 6.7 g/dL (6.2-8.2)
== END | disposition home or self-care (01) ==
LOC: LABWHC1 09:55
PROVIDERS: ATTEND Internal Medicine Interventional Cardiology
CPT/HCPCS: 36415; 80053; 80061

== ENCOUNTER 2024-06-13 21:53 | Emergency (ER) | payer MEDICARE ==
[2024-06-13 21:59] VITALS: RESP 18; TEMP 98.5
--- NOTE | 2024-06-13 22:09 | ED ---
General Adult HPI - General Chief complaint: Extremity Injury, Lower Stated complaint: Back pain Time Seen by Provider: 06/13/24 21:59 Source: patient, RN notes reviewed Mode of arrival: ambulatory - History of Present Illness Initial comments: This is a 74-year-old male with diabetes presenting to the emergency department with his for complaint of nontraumatic left hip pain. States that yesterday he began to experience pain of his left hip while he was sitting in his recliner. States that the pain will radiate on the outside of his leg described as a tingling sensation. Additionally, he has pain in his left lumbar spine. Denies injury to the back or hip. Denies previous surgeries of the left hip. Denies loss of bladder bowel continence or saddle anesthesias. Patient overall has difficult time with ambulation currently uses a walker and a wheelchair at home and his is his caregiver helping to bathe him - Related Data Home Medications Medication Instructions Recorded Confirmed Albuterol Sulfate [Proair Hfa] 2 puff INHALATION RT-Q6H PRN 04/04/15 01/27/23 traMADol HCL [Ultram] 50 mg PO TID PRN 03/06/19 01/27/23 Aspirin EC [Ecotrin Low Dose] 81 mg PO DAILY 08/05/20 01/27/23 Brinzolamide [Azopt 1% Ophth Susp] 1 drop BOTH EYES BID 08/05/20 01/27/23 Cholecalciferol [Vitamin D3 (25 50 mcg PO DAILY 08/05/20 01/27/23 Mcg = 1000 Iu)] Ferrous Sulfate [Iron (65 MG 325 mg PO DAILY 08/05/20 01/27/23 Elemental)] SILVER sulfADIAZINE Cream 1 applic TOPICAL DAILY 08/05/20 01/27/23 [Silvadene 1% Cream] amLODIPine [Norvasc] 5 mg PO DAILY 08/05/20 01/27/23 hydroCHLOROthiazide [Hydrodiuril] 25 mg PO DAILY 08/05/20 01/27/23 Pregabalin [Lyrica] 150 mg PO TID 09/24/20 01/27/23 Atorvastatin [Lipitor] 20 mg PO HS 05/25/22 01/27/23 DULoxetine HCL [Cymbalta] 60 mg PO DAILY 05/25/22 01/27/23 Furosemide [Lasix] 20 mg PO DAILY 05/25/22 01/27/23 Isosorbide Mononitrate ER [Imdur] 30 mg PO DAILY 05/25/22 01/27/23 Vitamin B Complex 1 cap PO DAILY 05/25/22 01/27/23 Ascorbic Acid [Vitamin C] 1,000 mg PO DAILY 08/14/22 01/27/23 Cyanocobalamin (Vitamin B-12) 1,000 mcg PO DAILY 08/14/22 01/27/23 [Vitamin B-12] Fluticasone Propionate 110 Mcg 1 puff INHALATION RT-BID 08/14/22 01/27/23 [Flovent 110 Mcg Inhaler] Latanoprost [Latanoprost 0.005%] 1 drop BOTH EYES HS 08/14/22 01/27/23 metFORMIN HCL [Glucophage] 850 mg PO BID 08/14/22 01/27/23 Folic Acid 0.4 mg PO DAILY 01/27/23 01/27/23 Hydrocortisone Cream 1 applic TOPICAL BID 01/27/23 01/27/23 [Hydrocortisone 2.5% Cream] Ketoconazole 2% Cream [Nizoral 2%] 1 applic TOPICAL BID 01/27/23 01/27/23 Losartan [Cozaar] 25 mg PO DAILY 01/27/23 01/27/23 Meloxicam [Mobic] 15 mg PO DAILY 01/27/23 01/27/23 Mupirocin 2% Oint [Bactroban 2% 1 applic TOPICAL BID PRN 01/27/23 01/27/23 Oint] Allergies Allergy/AdvReac Type Severity Reaction Status Date / Time amoxicillin Allergy Rash/Hives Verified 01/27/23 15:53 hydrocodone bitartrate Allergy Rash/Hives Verified 01/27/23 15:53 [From Vicodin] Penicillins Allergy Rash/Hives Verified 01/27/23 15:53 cortisone AdvReac Abdominal Verified 01/27/23 15:53 Pain NSAIDS (Non-Steroidal AdvReac Abdominal Verified 01/27/23 15:53 Anti-Inflamma Pain prednisone AdvReac Abdominal Verified 01/27/23 15:53 Pain Review of Systems ROS Statement: Those systems with pertinent positive or pertinent negative responses have been documented in the HPI. ROS Other: All systems not noted in ROS Statement are negative. Past Medical History Past Medical History: Asthma, Diabetes Mellitus, Eye Disorder, Hyperlipidemia, Hypertension, Neurologic Disorder, Osteoarthritis (OA), Pulmonary Embolus (PE), Skin Disorder Additional Past Medical History / Comment(s): COVID 19 infection April 2021 blood clots with covid, BILAT GLAUCOMA , obesity redness and moisture to skin folds uses silvadene, neuropathy in legs, swelling in lower legs, warts to lower legs. recent root canal. History of Any Multi-Drug Resistant Organisms: None Reported Past Surgical History: Bariatric Surgery, Cholecystectomy, Heart Catheterization , Hernia Repair, Orthopedic Surgery, Tonsillectomy Additional Past Surgical History / Comment(s): ANAL FISSURE REMOVED, cataract removal with lense implants, abdominal hernia repair. RT ROTATOR CUFF REPAIR. LAP BAND IN AND THEN REMOVED. WARTS REMOVED FROM LOWER EXTREMIES. COLONOSCOPY. SURGERY BILAT EYES FOR CATARACTS AND GLAUCOMA. EGD. RT KNEE SCOPE Past Anesthesia/Blood Transfusion Reactions: No Reported Reaction Additional Past Anesthesia/Blood Transfusion Reaction / Comment(s): Pt has never received blood. Past Psychological History: No Psychological Hx Reported Smoking Status: Never smoker - Past Family History Mother Family Medical History: Unable to Obtain Additional Family Medical History / Comment(s): FAMILY HX UNKNOWN PT IN FOSTER CARE CHILD Father History Unknown: Yes Family Medical History: Unable to Obtain Additional Family Medical History / Comment(s): Pt raised in foster care. General Exam General appearance: alert, in no apparent distress, obese ENT exam: Present: normal exam, mucous membranes moist Neck exam: Present: normal inspection. Absent: tenderness, meningismus, lymphadenopathy Respiratory exam: Present: normal lung sounds bilaterally. Absent: respiratory distress, wheezes, rales, rhonchi, stridor Cardiovascular Exam: Present: regular rate, normal rhythm, normal heart sounds. Absent: systolic murmur, diastolic murmur, rubs, gallop, clicks GI/Abdominal exam: Present: soft, normal bowel sounds. Absent: distended, tenderness, guarding, rebound, rigid Left Hip exam: Present: normal inspection, tenderness. Absent: full ROM Upper Leg exam: Present: normal inspection, full ROM. Absent: tenderness Lower Leg exam: Present: tenderness (multiple healing wounds in various stages of healing with mild surrounding erythema), swelling Foot/Toe exam: Present: normal inspection, full ROM. Absent: tenderness, swelling Neurovascular tendon exam: Present: no vascular compromise Back exam: Present: normal inspection, tenderness (left lumbar spine) Course Vital Signs 06/13/24 21:54 Temperature 98.5 F Pulse Rate 91 Respiratory 18 Rate Blood Pressure 132/65 O2 Sat by Pulse 98 Oximetry Medical Decision Making - Medical Decision Making Was pt. sent in by a medical professional or institution (JAGDISH Albarado, SPLICER OPERATOR, urgent care, hospital, or penitentiary...) When possible be specific @ -No Did you speak to anyone other than the patient for history (EMS, parent, family, police, friend...)? What history was obtained from this source @ -Spoke to patient's at bedside states the patient has been experiencing a left hip pain over the past day Did you review nursing and triage notes (agree or disagree)? Why? @ -I reviewed and agree with nursing and triage notes Were old charts reviewed (outside hosp., previous admission, EMS record, old EKG, old radiological studies, urgent care reports/EKG's, penitentiary records)? Report findings @ -No old charts were reviewed Differential Diagnosis (chest pain, altered mental status, abdominal pain women, abdominal pain men, vaginal bleeding, weakness, fever, dyspnea, syncope, h eadache, dizziness, GI bleed, back pain, seizure, CVA, palpatations, mental health, musculoskeletal)? @ -Differential Musculoskeletal Muscular strain, contusion, ligament sprain, fracture, arthritis, septic arthritis, bursitis, cellulitis, muscle spasm, nerve compression, DVT, arterial occlusion, herpes zoster, electrolyte abnormality, tumor.... This is not meant to be in all inclusive list EKG interpreted by me (3pts min.). @ -none X-rays interpreted by me (1pt min.). @ -X-ray of the right hip and AP pelvis no acute fracture or dislocation with diffuse osseous demineralization CT interpreted by me (1pt min.). @ -None done U/S interpreted by me (1pt. min.). @ -None done What testing was considered but not performed or refused? (CT, X-rays, U/S, labs)? Why? @ -None What meds were considered but not given or refused? Why? @ -None Did you discuss the management of the patient with other professionals (professionals i.e. JAGDISH Albarado, SPLICER OPERATOR, lab, RT, psych nurse, social media analyst, parent coach, teacher, conservation enforcement officer, rn case mgr)? Give summary @ -No Was smoking cessation discussed for >3mins.? @ -No Was critical care preformed (if so, how long)? @ -No Were there social determinants of health that impacted care today? How? (Homelessness, low income, unemployed, alcoholism, drug addiction, transportation, low edu. Level, literacy, decrease access to med. care, care home, rehab)? @ -No Was there de-escalation of care discussed even if they declined (Discuss DNR or withdrawal of care, Hospice)? DNR status @ -No What co-morbidities impacted this encounter? (DM, HTN, Smoking, COPD, CAD, Cancer, CVA, ARF, Chemo, Hep., AIDS, mental health diagnosis, sleep apnea, morbid obesity)? @ -None Was patient admitted / discharged? Hospital course, mention meds given and route, prescriptions, significant lab abnormalities, going to OR and other pertinent info. @ -Discharge. 74-year-old male presenting with right hip pain. On evaluation patient noted to have pain to sciatic nerve with radiation of his right lumbar spine radiation down his posterior leg. He is neuro vastly intact. His right with pain medication. X-ray unremarkable for acute process. Recommend that jagdish murguia continue supportive treatment at home and gentle exercising. Discussed with Dr. Webber Undiagnosed new problem with uncertain prognosis? @ -No Drug Therapy requiring intensive monitoring for toxicity (Heparin, Nitro, Insulin, Cardizem)? @ -No Were any procedures done? @ -No Diagnosis/symptom? @ -Sciatica, right hip pain Acute, or Chronic, or Acute on Chronic? @ -Acute Uncomplicated (without systemic symptoms) or Complicated (systemic symptoms)? @ -uncomplicated Side effects of treatment? @ -No Exacerbation, Progression, or Severe Exacerbation? @ -No Poses a threat to life or bodily function? How? (Chest pain, USA, IA, pneumonia, PE, COPD, DKA, ARF, appy, cholecystitis, CVA, Diverticulitis, Homicidal, Suicidal, threat to staff... and all critical care pts) @ -No Disposition Clinical Impression: Irritation of sciatic nerve, Hip pain Disposition: HOME SELF-CARE Condition: Good Instructions (If sedation given, give patient instructions): Sciatica (ED) Additional Instructions: Please return to the Emergency Department if symptoms worsen or any other concerns. Is patient prescribed a controlled substance at d/c from ED?: No Referrals: Tito Monroe MD [Primary Care Provider] - 1-2 days Time of Disposition: 01:56
[2024-06-13] MEDS: MORPHINE SULFATE 4 MG/ML SYRINGE IM STA (22:18)
--- NOTE | 2024-06-14 01:48 | XR ---
EXAM: XR Pelvis, 1 or 2 Views CLINICAL HISTORY: ITS.REASON XR Reason: pain TECHNIQUE: Frontal view of the pelvis. COMPARISON: No relevant prior studies available. FINDINGS: Bones/joints: Diffuse osseous demineralization. No acute fracture or subluxation. Soft tissues: Unremarkable. IMPRESSION: No acute fracture or subluxation.
[2024-06-14 02:40] VITALS: BP 136/63; PULSE 83
== END 2024-06-14 02:05 | disposition home or self-care (01) ==
LOC: EC 21:53 → SUPCPDRO 21:53 → EC 06-14 02:05
DX: M25.551 Pain in right hip (principal); Z88.0 Allergy status to penicillin; Z88.5 Allergy status to narcotic agent; Z88.6 Allergy status to analgesic agent; Z88.8 Allergy status to other drugs, medicaments and biological substances; Z86.16 Personal history of COVID-19
CPT/HCPCS: 73502; 99283; 96372; J2270